=== PATIENT | female | born 1940 | race Caucasian/White ===

== ENCOUNTER 2018-01-02 09:15 | Emergency (ER) | payer MEDICARE, SELFPAY ==
[2018-01-02 09:26] VITALS: BP 150/96; PULSE 60; RESP 20; TEMP 36.2; O2SAT 95; BMI 38.1
--- NOTE | 2018-01-02 09:45 | HMH.EDBACK ---
ED Disposition Clinical Impression: Strain of lumbar region Qualifiers: Encounter type: initial encounter Qualified Code(s): S39.012A - Strain of muscle, fascia and tendon of lower back, initial encounter Disposition: Home, Self-Care Condition on Discharge: Good Instructions: DI for Low Back Pain Additional Instructions: See Nehal for follow up next week; she may wish to do an MRI. Continue Ultram and get refills from Nehal early next week; Rx Medrol dosepak; your blood pressure is low today after taking your morning medications; do not take your morning blood pressure medications tomorrow if your blood pressure top number is 100 or lower, but definitely talk to Nehal about adjusting your medications if you see consistent low blood pressures at home. Keep a log of your blood pressures to bring in to her to review and make adjustments as she sees fit. Prescriptions: methylPREDNISolone [Medrol] 4 mg PO DAILY #1 tab.ds.pk Referrals: Nehal Calixto APRN [Primary Care Provider] - - Critical Care Critical Care Time: No Attestation: On 01/02/18, the high probability of a clinically significant, sudden or life threatening deterioration of the following system(s) required my full and direct attention, intervention and personal management. The time I documented below is in addition to time spent performing reported procedures but includes the following listed in this critical care notation. Medical Decision Making Vital Signs: 01/02/18 09:26 Temperature 97.2 F L Temperature Source Tympanic Pulse Rate [Left Radial] 60 Respiratory Rate 20 Blood Pressure [Right Arm] 150/96 Blood Pressure Mean [Right Arm] 114 Blood Pressure Source [Right Arm] Automatic Cuff Blood Pressure Position [Right Arm] Sitting 02 Sat by Pulse Oximetry 95 Oxygen Delivery Method Room Air Orders (Tests/Meds): ED MEDICATIONS Discontinued Medications Generic Name Dose Route Start Last Admin Trade Name Freq PRN Reason Stop Dose Admin Prednisone 80 mg 01/02/18 09:55 01/02/18 10:17 Deltasone 20mg Tablet PO 01/02/18 09:56 80 mg ONCE ONE Administration Tramadol HCl 50 mg 01/02/18 09:55 01/02/18 10:17 Ultram 50mg Tablet PO 01/02/18 09:56 50 mg ONCE ONE Administration ORDERS Category Date Time Status Lumbar spine minimum 4 views [XR lumbar spine min 4V] Exams 01/02/18 09:46 Taken Stat - Radiology Data #1 Image(s): L-Spine Image Reviewed: Yes I reviewed the patient's radiology image Preliminary Findings: Abnormal, No Fracture Seen Retrolisthesis of L3 on L4 already seen on prior MRI; DJD; some what diminished height of L1 - Leo Inquiry Pt receiving controlled substance: No Back Pain HPI - General Chief Complaint: Back Pain/Injury Stated Complaint: ao [id number] Mode of Arrival: Ambulatory Limitations: No Limitations Description of Symptoms (Recalled from ER Triage Doc. by RN): Back pain - History of Present Illness HPI Narrative: Patient states that she fell while going to the room in the middle of the night approximately 1 week ago. She did speak with her nurse practitioner, who recommended that she double up on her Ultram. We took 1 dose of Ultram this morning. She has persistent back spasm in the right lumbar area. She denies any loss of bowel or bladder function. She has chronic lymphedema and chronic leg pain. She usually ambulates with a cane when she is outside of the house, but has been using the cane while inside the house. She does not have a walker but does not state that she needs a walker today. No acute numbness or weakness reported. No hematuria. No rib pain. Pain is worse with motion. Complaint: back injury, fall Duration: constant Similar Symptoms Previously: No Location: lumbar spine Severity: moderate Quality: aching Radiation: none Relieving factors: medication Exacerbating factors: movement Context: fall Associated symptoms: denies other symptoms - Relate
--- NOTE | 2018-01-02 09:46 | XR_ITS ---
XR lumbar spine min 4V COMPARISON: MRI scan lumbar spine 01/24/2014 HISTORY: Low back pain after a fall TECHNIQUE: AP lateral and oblique views and spot view lumbosacral junction FINDINGS: There is normal curvature and alignment. There is prominent degenerative change at the L3-4 level with anterior and posterior osteophytic spurring. There is a mild compression fracture of L1 which was not seen on the previous MRI study and this could be an acute compression fracture. There is no more than 10-15% loss of height. There is no significant retropulsion. There is no pars defect. There is mild arthritic change of the right SI joint. IMPRESSION: Mild compression fracture of L1 likely acute or semiacute along with prominent degenerative disc disease L3-4
--- NOTE | 2018-01-02 09:57 | ED_ITS ---
ED Disposition Clinical Impression: Strain of lumbar region Qualifiers: Encounter type: initial encounter Qualified Code(s): S39.012A - Strain of muscle, fascia and tendon of lower back, initial encounter Disposition: Home, Self-Care Condition on Discharge: Good Instructions: DI for Low Back Pain Additional Instructions: See Nehal for follow up next week; she may wish to do an MRI. Continue Ultram and get refills from Nehal early next week; Rx Medrol dosepak; your blood pressure is low today after taking your morning medications; do not take your morning blood pressure medications tomorrow if your blood pressure top number is 100 or lower, but definitely talk to Nehal about adjusting your medications if you see consistent low blood pressures at home. Keep a log of your blood pressures to bring in to her to review and make adjustments as she sees fit. Prescriptions: methylPREDNISolone [Medrol] 4 mg PO DAILY #1 tab.ds.pk Referrals: Nehal Calixto APRN [Primary Care Provider] - - Critical Care Critical Care Time: No Attestation: On 01/02/18, the high probability of a clinically significant, sudden or life threatening deterioration of the following system(s) required my full and direct attention, intervention and personal management. The time I documented below is in addition to time spent performing reported procedures but includes the following listed in this critical care notation. Medical Decision Making Vital Signs: 01/02/18 09:26 Temperature 97.2 F L Temperature Source Tympanic Pulse Rate [Left Radial] 60 Respiratory Rate 20 Blood Pressure [Right Arm] 150/96 Blood Pressure Mean [Right Arm] 114 Blood Pressure Source [Right Arm] Automatic Cuff Blood Pressure Position [Right Arm] Sitting 02 Sat by Pulse Oximetry 95 Oxygen Delivery Method Room Air Orders (Tests/Meds): ED MEDICATIONS Discontinued Medications Generic Name Dose Route Start Last Admin Trade Name Freq PRN Reason Stop Dose Admin Prednisone 80 mg 01/02/18 09:55 01/02/18 10:17 Deltasone 20mg Tablet PO 01/02/18 09:56 80 mg ONCE ONE Administration Tramadol HCl 50 mg 01/02/18 09:55 01/02/18 10:17 Ultram 50mg Tablet PO 01/02/18 09:56 50 mg ONCE ONE Administration ORDERS Category Date Time Status Lumbar spine minimum 4 views [XR lumbar spine min 4V] Exams 01/02/18 09:46 Taken Stat - Radiology Data #1 Image(s): L-Spine Image Reviewed: Yes I reviewed the patient's radiology image Preliminary Findings: Abnormal, No Fracture Seen Retrolisthesis of L3 on L4 already seen on prior MRI; DJD; some what diminished height of L1 - Leo Inquiry Pt receiving controlled substance: No Back Pain HPI - General Chief Complaint: Back Pain/Injury Stated Complaint: ao [id number] Mode of Arrival: Ambulatory Limitations: No Limitations Description of Symptoms (Recalled from ER Triage Doc. by RN): Back pain - History of Present Illness HPI Narrative: Patient states that she fell while going to the room in the middle of the night approximately 1 week ago. She did speak with her nurse practitioner, who recommended that she double up on her Ultram. We took 1 dose of Ultram this morning. She has persistent back spasm in the right lumbar area. She denies any loss of bowel or bladder function. She has chronic lymphedema
[2018-01-02 10:52] VITALS: BP 138/62; PULSE 56; RESP 20; TEMP 36.3; O2SAT 96
== END 2018-01-02 11:03 | disposition home or self-care (01) ==
PROVIDERS: Emergency Provider Emergency Medicine; Family Provider Nurse Practitioner Family; PCP Nurse Practitioner Family
DX: S39.012A Strain of muscle, fascia and tendon of lower back, initial encounter (principal); W01.0XXA Fall on same level from slipping, tripping and stumbling without subsequent striking against object, initial encounter; Y92.019 Unspecified place in single-family (private) house as the place of occurrence of the external cause; I10 Essential (primary) hypertension; Z88.6 Allergy status to analgesic agent; M62.830 Muscle spasm of back
CPT/HCPCS: 72110; 99282

== ENCOUNTER → 2018-03-29 08:33 | Outpatient (CLI) | payer MEDICARE, SELFPAY ==
--- NOTE | 2018-03-29 08:42 | XR_ITS ---
XR hand RT min 3V HISTORY: Pain, swelling, and bruising ITS.REASON: RT HAND PAIN ORDERING PHYSICIAN: Nehal Calixto PATIENT AGE: 77 years COMPARISON: None FINDINGS: No fracture or dislocation. No lytic or blastic change. There is normal mineralization.. The joint spaces are well-preserved. No significant degenerative/arthritic changes. No erosive changes evident.. IMPRESSION: Negative, no acute finding
== END ==
PROVIDERS: PCP Nurse Practitioner Family; Visit Provider Nurse Practitioner Family
DX: M79.641 Pain in right hand (principal)
CPT/HCPCS: 73130

== ENCOUNTER 2018-06-08 09:00 | Outpatient (RCR) | payer MEDICARE, SELFPAY | END 2018-06-08 09:01 | disposition home or self-care (01) | LOC: PT 09:00 | PROVIDERS: Family Provider Nurse Practitioner Family; PCP Nurse Practitioner Family; Visit Provider Nurse Practitioner Family | DX: R29.898 Other symptoms and signs involving the musculoskeletal system; S32.010A Wedge compression fracture of first lumbar vertebra, initial encounter for closed fracture; S60.219A Contusion of unspecified wrist, initial encounter | CPT/HCPCS: 97010; 97014; 97110; 97140; 97163; G0283 ==

== ENCOUNTER → 2018-08-06 13:25 | Outpatient (CLI) | payer MEDICARE, SELFPAY ==
--- NOTE | 2018-08-06 13:28 | MR_ITS ---
MR lumbar spine wo con, MR 3-d myelogram/MRCP HISTORY: Low back pain, recent falls with fracture, acute or subacute L1 fracture, degenerative disc disease ITS.REASON: DEGENERATION OF LUMBAR DISC ORDERING PHYSICIAN: Nehal Calixto PATIENT AGE: 77 years Comparison: 01/02/2018, 01/24/2014) TECHNIQUE: Standard multiplanar multiecho sequences are performed without contrast. 3-D MIP and myelographic images are also rendered and reviewed FINDINGS: There is normal alignment. The spinal cord ends at the L2 level. L1-L2: There are wedge compression changes involving the L1 vertebral body centrally and anteriorly. Bone marrow edema is present involving the superior aspect of L2 but not the inferior aspect at the region of the compression change. The compression changes are greater along the left aspect of the vertebral body. This has more of a chronic appearance. There is mild retropulsion of the posterior-inferior aspect of L1 by approximately 4 mm. There is facet and ligamentum flavum hypertrophy with associated bulging disc. There is moderate to severe left foraminal narrowing. And moderate left lateral recess narrowing. L2-L3: Mild concentric bulging disc along with facet and ligamentum hypertrophy with moderate bilateral lateral recess and foraminal narrowing. L3-L4: Degenerative disc disease with type II endplate changes. There is concentric bulging disc along with facet and ligamentum flavum hypertrophy which is greater on the right causing moderate to severe right foraminal narrowing and moderate right lateral recess narrowing. There is some mild impingement upon exiting right L3 nerve root and the right L4 nerve root. There is narrowing the canal the transverse dimension and 10 mm L4-L5: Mild concentric bulging disc which is slightly eccentric toward the left foraminal and lateral region with mild facet and ligamentum flavum hypertrophy. L5-S1: Minimal bulging disc versus slightly eccentric toward the left with mild facet and ligamentum hypertrophy. IMPRESSION: 1. Abnormal MRI of the lumbar spine with abnormalities at multiple levels. Please see above for detailed description at each level. 2. Chronic compression changes with mild retropulsion of L1 and moderate to severe left-sided foraminal narrowing and left lateral recess narrowing at L1-L2. See above for detailed description 3. Bulging disc at L3-L4 with moderate to severe right-sided foraminal and lateral recess narrowing. See above for detailed description 4. No disc herniation or spinal stenosis. Other numerous abnormalities as described above
== END ==
PROVIDERS: PCP Nurse Practitioner Family; Visit Provider Nurse Practitioner Family
DX: M51.36 Other intervertebral disc degeneration, lumbar region (principal)
CPT/HCPCS: 72148; 76376

== ENCOUNTER → 2018-09-06 08:48 | Outpatient (POV) | payer MEDICARE, SELFPAY ==
[2018-09-06 08:53] VITALS: BP 138/65; PULSE 63; RESP 18; O2SAT 98
--- NOTE | 2018-09-06 12:49 | HMH.PMCON ---
Assessment and Plan (1) Degenerative disc disease Current visit: Yes Status: Chronic Qualifiers: Spinal region: lumbar Qualified Code(s): M51.36 - Other intervertebral disc degeneration, lumbar region Category: Medical (2) Lumbar radiculopathy Current visit: Yes Status: Chronic Category: Medical Code(s): M54.16 - Radiculopathy, lumbar region - Assessment and plan all Dx Assessment and Plan for all problems:: We will schedule the patient for an L4-L5 lumbar epidural steroid injection. Patient is on Xarelto from Dr. Marques. We will get permission for her to come off of this prior to her injection. Patient may be a mild candidate in the future. I do believe starting with a lumbar epidural steroid injection will help us determine this. I will follow-up with the patient after her injection. This note was dictated using voice recognition software and may contain errors or omissions HPI - Data of Consult Consult date: 09/06/18 Requesting Physician: Christie Ruiz APRN Primary Care Provider: Nehal Calixto APRN - Consult Narrative Reason for consult: Back pain History of present illness: Ms. Laird is a 77 year old female who presents today for consultation in regards to her low back pains. She rates her pain a 6 out of 10 today. Patient states that it began several years ago after she was mary and bent over. She has had 2 recent falls. One resulted in compression fracture. Patient states that walking, standing to cook increases pain while resting and laying down decreases pain. Patient has tried gabapentin and tramadol. Patient has had minimal relief with chiropractic therapy along with physical therapy. Patient does have an recent MRI. CC: Christie Ruiz APRN [facility] History I have reviewed the patient's past medical history: Yes Medical History: Reports:: Atrial Fibrillation, Cancer (1993 uterine cancer), Hyperlipidemia, Hypertension Denies:: Diabetes Mellitus Type 1, Diabetes Mellitus Type 2 Other Surgeries: Yes: Hysterectomy-Total - *Social History Smoking Status: Never smoker Alcohol Intake: never Occupational Status: other Housing: apartment - Psychiatric History Expresses thoughts of harming self/others: None Suicide Plan Description: No Plan *Family Hx:: Unable to obtain Review of Systems - Review of Systems ROS General: no recent weight change, no fever, no sleep disturbances Respiratory: no cough, no shortness of air, no recurring pulmonary infections Cardiovascular/Peripheral Vascular: No chest pain, No palpitations, no edema, no shortness of breath. Gastrointestinal: no incontinence, normal bowel movements reported Genitourinary: no incontinence Musculoskeletal: Back pain Psychiatric: normal mood/ affect Neurological: [denies weakness in extremities], [denies balance issues] Meds Home Medications Medication Instructions Recorded Confirmed Type Gabapentin [Gabapentin 400mg Cap] 400 mg PO QID 01/02/18 01/02/18 History Rivaroxaban [Xarelto] 20 mg PO DAILY 01/02/18 01/02/18 History Tramadol HCl [Ultram Take Home 50 mg PO Q6 PRN 01/02/18 01/02/18 History Pack 50mg (10)] Triamterene/Hydrochlorothiazid 1 cap PO DAILY 01/02/18 01/02/18 History [Dyazide 37.5/25mg capsule] Zolpidem Tartrate [Ambien 10mg 10 mg PO DAILY 01/02/18 01/02/18 History tablet] Allergies Allergy/AdvReac Type Severity Reaction Status Date / Time acetaminophen [From Vicodin] Allergy Unknown Verified 01/02/18 09:50 hydrocodone [From Vicodin] Allergy Unknown Verified 01/02/18 09:50 Objective Vital signs: Pulse Resp BP Pulse Ox 63 18 138/65 98 09/06/18 08:53 09/06/18 08:53 09/06/18 08:53 09/06/18 08:53 Narrative: Physical Exam General: Alert and oriented x3, no acute distress, pleasant and cooperative, [on room air] Lungs: Resps E/U, Symmetrical chest expansion, Eyes: PERRL Musculoskeletal: Flexion and extension of
--- NOTE | 2018-09-06 12:52 | P.CONS_ITS ---
Assessment and Plan (1) Degenerative disc disease Current visit: Yes Status: Chronic Qualifiers: Spinal region: lumbar Qualified Code(s): M51.36 - Other intervertebral disc degeneration, lumbar region Category: Medical (2) Lumbar radiculopathy Current visit: Yes Status: Chronic Category: Medical Code(s): M54.16 - Radiculopathy, lumbar region - Assessment and plan all Dx Assessment and Plan for all problems:: We will schedule the patient for an L4-L5 lumbar epidural steroid injection. Patient is on Xarelto from Dr. Marques. We will get permission for her to come off of this prior to her injection. Patient may be a mild candidate in the future. I do believe starting with a lumbar epidural steroid injection will help us determine this. I will follow-up with the patient after her injection. This note was dictated using voice recognition software and may contain errors or omissions HPI - Data of Consult Consult date: 09/06/18 Requesting Physician: Christie Ruiz APRN Primary Care Provider: Nehal Calixto APRN - Consult Narrative Reason for consult: Back pain History of present illness: Ms. Laird is a 77 year old female who presents today for consultation in regards to her low back pains. She rates her pain a 6 out of 10 today. Patient states that it began several years ago after she was mary and bent over. She has had 2 recent falls. One resulted in compression fracture. Patient states that walking, standing to cook increases pain while resting and laying down decreases pain. Patient has tried gabapentin and tramadol. Patient has had minimal relief with chiropractic therapy along with physical therapy. Patient does have an recent MRI. CC: Christie Ruiz APRN [facility] History I have reviewed the patient's past medical history: Yes Medical History: Reports:: Atrial Fibrillation, Cancer (1993 uterine cancer), Hyperlipidemia, Hypertension Denies:: Diabetes Mellitus Type 1, Diabetes Mellitus Type 2 Other Surgeries: Yes: Hysterectomy-Total - *Social History Smoking Status: Never smoker Alcohol Intake: never Occupational Status: other Housing: apartment - Psychiatric History Expresses thoughts of harming self/others: None Suicide Plan Description: No Plan *Family Hx:: Unable to obtain Review of Systems - Review of Systems ROS General: no recent weight change, no fever, no sleep disturbances Respiratory: no cough, no shortness of air, no recurring pulmonary infections Cardiovascular/Peripheral Vascular: No chest pain, No palpitations, no edema, no shortness of breath. Gastrointestinal: no incontinence, normal bowel movements reported Genitourinary: no incontinence Musculoskeletal: Back pain Psychiatric: normal mood/ affect Neurological: [denies weakness in extremities], [denies balance issues] Meds Home Medications Medication Instructions Recorded Confirmed Type Gabapentin [Gabapentin 400mg Cap] 400 mg PO QID 01/02/18 01/02/18 History Rivaroxaban [Xarelto] 20 mg PO DAILY 01/02/18 01/02/18 History Tramadol HCl [Ultram Take Home 50 mg PO Q6 PRN 01/02/18 01/02/18 History Pack 50mg (10)] Triamterene/Hydrochlorothiazid 1 cap PO DAILY 01/02/18 01/02/18 History [Dyazide 37.5/25mg capsule] Zolpidem Tartrate [Ambien 10mg 10 mg PO DAILY 01/02/18 01/02/18 History tablet] Allergies Aller
== END ==
PROVIDERS: PCP Nurse Practitioner Family; Visit Provider Clinical Nurse Specialist Family Health
DX: M51.16 Intervertebral disc disorders with radiculopathy, lumbar region (principal)
CPT/HCPCS: 99202

== ENCOUNTER → 2018-10-18 13:35 | Outpatient (POV) | payer MEDICARE, SELFPAY ==
[2018-10-18 14:15] VITALS: BP 144/57; PULSE 62; RESP 18; O2SAT 98; BMI 36.0
--- NOTE | 2018-10-18 14:42 | HMH.PAINSOAP ---
[facility] Pain Management SOAP Note Subjective:: Is a pleasant 77-year-old white female who presents today for follow-up after lumbar epidural steroid injection. Patient did not have much relief with this. She rates her pain today a 10 out of 10. Mostly in her low back. She states is worse when she is walking. She has to lean forward for relief. Patient does have an MRI showing both a compression fracture and spinal stenosis. Patient and I have spoke about a mild procedure. She is interested in pursuing this. Patient does have permission to come off her anticoagulation therapy for these in injections and seizures. ROS General: no recent weight change, no fever, no sleep disturbances Respiratory: no cough, no shortness of air, no recurring pulmonary infections Cardiovascular/Peripheral Vascular: No chest pain, No palpitations, no edema, no shortness of breath. Gastrointestinal: no incontinence, normal bowel movements reported Genitourinary: no incontinence Musculoskeletal: Back pain and leg weakness when walking Psychiatric: normal mood/ affect Neurological: [denies weakness in extremities], [denies balance issues] Objective:: Physical Exam General: Alert and oriented x3, no acute distress, pleasant and cooperative, [on room air] Lungs: Resps E/U, Symmetrical chest expansion, Eyes: PERRL Musculoskeletal: Flexion and extension of lumbar spine somewhat guarded secondary to pain, deep tendon reflexes normal, strength in upper and lower extremities [5/5], [abnormal gait noted] Neurological: speech clear, lift manager equal, no gross sensory deficits Assessment:: Degenerative disc disease lumbar spine with radiculopathy, spinal stenosis with neurogenic claudication Plan:: We will schedule her for a mild procedure at the L3-L4 level. I do believe it would be beneficial given her symptomology and age. This note was dictated using voice recognition software and may contain errors or omissions
== END ==
PROVIDERS: PCP Nurse Practitioner Family; Visit Provider Clinical Nurse Specialist Family Health
DX: M54.16 Radiculopathy, lumbar region; M48.062 Spinal stenosis, lumbar region with neurogenic claudication
CPT/HCPCS: 99213

== ENCOUNTER → 2018-11-22 12:50 | Outpatient (POV) | payer MEDICARE, SELFPAY ==
[2018-11-22 13:05] VITALS: BP 131/88; PULSE 50; RESP 18; O2SAT 98; BMI 36.0
--- NOTE | 2018-11-22 13:10 | HMH.PAINSOAP ---
[facility] Pain Management SOAP Note Subjective:: Patient is a pleasant 77-year-old white female who presents today for follow-up after her M ILD procedure. She is doing well rating her pain a 3 out of 10. She states she is much more functional. She states that she can now cook and shower with less help. She states before she could not stand however now she can stand for several minutes at a time and can walk up to 15 minutes. Patient is planning a trip to [place] and is excited about it. ROS General: no recent weight change, no fever, no sleep disturbances Respiratory: no cough, no shortness of air, no recurring pulmonary infections Cardiovascular/Peripheral Vascular: No chest pain, No palpitations, no edema, no shortness of breath. Gastrointestinal: no incontinence, normal bowel movements reported Genitourinary: no incontinence Musculoskeletal: Back pain, leg weakness when walking Psychiatric: normal mood/ affect Neurological: [denies weakness in extremities], [denies balance issues] Objective:: Physical Exam General: Alert and oriented x3, no acute distress, pleasant and cooperative, [on room air] Lungs: Resps E/U, Symmetrical chest expansion Eyes: PERRL Musculoskeletal: Flexion and extension of lumbar spine somewhat guarded secondary to pain, deep tendon reflexes normal, strength in upper and lower extremities [5/5], [abnormal gait noted] Neurological: speech clear, kiln remover equal, no gross sensory deficits Assessment:: Spinal stenosis with neurogenic claudication, degenerative disc disease lumbar spine with lumbar radiculopathy Plan:: We will follow-up with the patient in 6 weeks and reassess her symptoms at that time. This note was dictated using voice recognition software and may contain errors or omissions
--- NOTE | 2018-11-22 13:14 | P.CONS_ITS ---
[facility] Pain Management SOAP Note Subjective:: Patient is a pleasant 77-year-old white female who presents today for follow-up after her M ILD procedure. She is doing well rating her pain a 3 out of 10. She states she is much more functional. She states that she can now cook and shower with less help. She states before she could not stand however now she can stand for several minutes at a time and can walk up to 15 minutes. Patient is planning a trip to [place] and is excited about it. ROS General: no recent weight change, no fever, no sleep disturbances Respiratory: no cough, no shortness of air, no recurring pulmonary infections Cardiovascular/Peripheral Vascular: No chest pain, No palpitations, no edema, no shortness of breath. Gastrointestinal: no incontinence, normal bowel movements reported Genitourinary: no incontinence Musculoskeletal: Back pain, leg weakness when walking Psychiatric: normal mood/ affect Neurological: [denies weakness in extremities], [denies balance issues] Objective:: Physical Exam General: Alert and oriented x3, no acute distress, pleasant and cooperative, [on room air] Lungs: Resps E/U, Symmetrical chest expansion Eyes: PERRL Musculoskeletal: Flexion and extension of lumbar spine somewhat guarded secondary to pain, deep tendon reflexes normal, strength in upper and lower extremities [5/5], [abnormal gait noted] Neurological: speech clear, landfill attendant equal, no gross sensory deficits Assessment:: Spinal stenosis with neurogenic claudication, degenerative disc disease lumbar spine with lumbar radiculopathy Plan:: We will follow-up with the patient in 6 weeks and reassess her symptoms at that time. This note was dictated using voice recognition software and may contain errors or omissions
== END ==
PROVIDERS: PCP Nurse Practitioner Family; Visit Provider Clinical Nurse Specialist Family Health
DX: M48.062 Spinal stenosis, lumbar region with neurogenic claudication (principal)
CPT/HCPCS: 99213

== ENCOUNTER → 2019-01-04 11:33 | Outpatient (POV) | payer MEDICARE, SELFPAY ==
[2019-01-04 11:35] VITALS: BP 147/83; PULSE 40; RESP 18; O2SAT 97; BMI 36.0
--- NOTE | 2019-01-04 12:18 | HMH.PAINSOAP ---
[facility] Pain Management SOAP Note Subjective:: Patient is a pleasant 78-year-old white female who presents today for follow-up. Patient was doing well after her M ILD procedure. She stated at her last visit she was able to stand longer. Patient states now that she can stand however she is having some additional pain. Patient is returning from a trip to [employer]. Patient and I discussed options in regards to her current pain. She rates her pain a 5 out of 10 today. ROS General: no recent weight change, no fever, no sleep disturbances Respiratory: no cough, no shortness of air, no recurring pulmonary infections Cardiovascular/Peripheral Vascular: No chest pain, No palpitations, no edema, no shortness of breath. Gastrointestinal: no incontinence, normal bowel movements reported Genitourinary: no incontinence Musculoskeletal: Back pain, leg pain Psychiatric: normal mood/ affect, Neurological: [denies weakness in extremities], [denies balance issues] Objective:: Physical Exam General: Alert and oriented x3, no acute distress, pleasant and cooperative, [on room air] Lungs: Resps E/U, Symmetrical chest expansion, Eyes: PERRL Musculoskeletal: Flexion and extension of lumbar spine somewhat guarded secondary to pain, deep tendon reflexes normal, strength in upper and lower extremities [5/5], [abnormal gait noted] Neurological: speech clear, regulatory affairs consultant equal, no gross sensory deficits Assessment:: 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 Also lumbar radiculopathy Plan:: We will schedule an L4-L5 lumbar epidural steroid injection for the patient I do believe it would be beneficial. Patient may be a candidate for future procedures however I feel like a epidural will help us determine the necessity of this. She is not on anticoagulation therapy however she has permission to come off her procedures. Dr. Cherry has reviewed this note and agrees with this plan of care. This note was dictated using voice recognition software and may contain errors or omissions
--- NOTE | 2019-01-04 12:22 | P.CONS_ITS ---
[facility] Pain Management SOAP Note Subjective:: Patient is a pleasant 78-year-old white female who presents today for follow-up. Patient was doing well after her M ILD procedure. She stated at her last visit she was able to stand longer. Patient states now that she can stand however she is having some additional pain. Patient is returning from a trip to [place]. Patient and I discussed options in regards to her current pain. She rates her pain a 5 out of 10 today. ROS General: no recent weight change, no fever, no sleep disturbances Respiratory: no cough, no shortness of air, no recurring pulmonary infections Cardiovascular/Peripheral Vascular: No chest pain, No palpitations, no edema, no shortness of breath. Gastrointestinal: no incontinence, normal bowel movements reported Genitourinary: no incontinence Musculoskeletal: Back pain, leg pain Psychiatric: normal mood/ affect, Neurological: [denies weakness in extremities], [denies balance issues] Objective:: Physical Exam General: Alert and oriented x3, no acute distress, pleasant and cooperative, [on room air] Lungs: Resps E/U, Symmetrical chest expansion, Eyes: PERRL Musculoskeletal: Flexion and extension of lumbar spine somewhat guarded secondary to pain, deep tendon reflexes normal, strength in upper and lower extremities [5/5], [abnormal gait noted] Neurological: speech clear, bmet equal, no gross sensory deficits Assessment:: 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 Also lumbar radiculopathy Plan:: We will schedule an L4-L5 lumbar epidural steroid injection for the patient I do believe it would be beneficial. Patient may be a candidate for future procedures however I feel like a epidural will help us determine the necessity of this. She is not on anticoagulation therapy however she has permission to come off her procedures. Dr. Cherry has reviewed this note and agrees with this plan of care. This note was dictated using voice recognition software and may contain errors or omissions
== END ==
PROVIDERS: PCP Nurse Practitioner Family; Visit Provider Clinical Nurse Specialist Family Health
DX: M48.062 Spinal stenosis, lumbar region with neurogenic claudication (principal); M54.16 Radiculopathy, lumbar region
CPT/HCPCS: 99213

== ENCOUNTER → 2019-01-31 14:17 | Outpatient (POV) | payer MEDICARE, SELFPAY ==
[2019-01-31 14:49] VITALS: BP 148/77; PULSE 52; RESP 18; O2SAT 98; BMI 36.0
--- NOTE | 2019-02-01 08:21 | HMH.PAINSOAP ---
[facility] Pain Management SOAP Note Subjective:: Patient is a pleasant 78-year-old white female who presents today for follow-up after lumbar epidural injection. Patient had a mild procedure. After this she was still having some residual pain so she had an epidural injection she rates her pain today a 2 out of 10 she states she is doing much better. Patient recently fell which did increase her pain. ROS General: no recent weight change, no fever, no sleep disturbances Respiratory: no cough, no shortness of air, no recurring pulmonary infections Cardiovascular/Peripheral Vascular: No chest pain, No palpitations, no edema, no shortness of breath. Gastrointestinal: no incontinence, normal bowel movements reported Genitourinary: no incontinence Musculoskeletal: [Back pain, leg pain Psychiatric: normal mood/ affect, Neurological: [denies weakness in extremities], [denies balance issues] Objective:: Physical Exam General: Alert and oriented x3, no acute distress, pleasant and cooperative, [on room air] Lungs: Resps E/U, Symmetrical chest expansion, Eyes: PERRL Musculoskeletal: Flexion and extension of lumbar spine somewhat guarded secondary to pain, deep tendon reflexes normal, strength in upper and lower extremities [5/5], [abnormal gait noted] Neurological: speech clear, corn lab technician equal, no gross sensory deficits Assessment:: Degenerative disc disease lumbar spine with spinal stenosis and lumbar radiculopathy symptoms Plan:: After discussion with the patient will see this patient back on an as-needed basis. Patient is good to call us if her pain returns or worsens. Dr. Cherry has reviewed this note and agrees with this plan of care. This note was dictated using voice recognition software and may contain errors or omissions
== END ==
PROVIDERS: PCP Nurse Practitioner Family; Visit Provider Clinical Nurse Specialist Family Health
DX: M48.061 Spinal stenosis, lumbar region without neurogenic claudication (principal); M51.16 Intervertebral disc disorders with radiculopathy, lumbar region
CPT/HCPCS: 99213

== ENCOUNTER → 2019-05-31 15:52 | Outpatient (CLI) | payer MEDICARE, SELFPAY ==
--- NOTE | 2019-05-31 15:56 | MR_ITS ---
MR head/brain wo con HISTORY: ITS.REASON: UNSPECIFIED DISORDER OF TYMPANIC MEMBRANE, LEFT EAR ORDERING PHYSICIAN: Nehal Calixto APRN PATIENT AGE: 78 years Comparison: None TECHNIQUE: Standard multiplanar multiecho sequences are performed without contrast. FINDINGS: There are no areas of restricted diffusion. There is no mass, acute hemorrhage or extra-axial fluid collection. Ventricles, sulci, cortical areas and brainstem structures are normal. There is empty sella turcica which is a nonspecific finding. Visualized vessels are patent and area of the foramen magnum is normal. Few scattered small punctate foci of increased T2 signal within the frontal and parietal centrum semiovale deep white matter areas. There is some mixed intermediate and increased T2 signal in several mastoid air cells on the left side with some intermediate signal likely in the left middle ear cavity. Visualized portions of the optic pathway structures appear normal. IMPRESSION: White matter findings are very nonspecific and likely from mild chronic microvascular ischemic change. Left mastoid air cell mucosal thickening or effusion with perhaps a small amount in the left middle air cavity. It should be noted MRI is not very diagnostic to evaluate the tympanic membrane which is better evaluated with clinical exam and if necessary high-resolution CT temporal bone images. Empty sella turcica nonspecific and can occur in 50% normal population although there can BE association with hypertension.
== END ==
PROVIDERS: PCP Nurse Practitioner Family; Visit Provider Nurse Practitioner Family
DX: H73.92 Unspecified disorder of tympanic membrane, left ear (principal)
CPT/HCPCS: 70551

== ENCOUNTER → 2019-06-02 13:18 | Outpatient (CLI) | payer MEDICARE, SELFPAY ==
[2019-06-02 14:34] LABS: Basophils % 0.4 % (0.1-2.0); Eosinophils # 0.1 K/mm3 (0.0-0.4); Hematocrit 47.1 % (37.0-47.0); Hemoglobin 15.1 g/dL (12.2-16.2); Lymphocytes # 1.4 K/mm3 (0.7-4.5); Lymphocytes % 20.4 % (10-50); Mean Corpuscular HGB Conc 32.1 g/dL (31.8-35.4); Mean Corpuscular Hemoglobin 31.6 pg (27.0-31.2); Mean Corpuscular Volume 98.3 fl (81-99); Mean Platelet Volume 8.1 fl (7.4-10.4); Monocytes # 0.4 K/mm3 (0.1-1.0); Monocytes % 6.5 % (1.7-9.3); Neutrophils # 4.9 K/mm3 (1.8-7.8); Neutrophils % 71.6 % (37.0-80.0); Platelet Count 260 K/mm3 (142-424); Red Blood Count 4.79 M/mm3 (4.20-5.40); Red Cell Distribution Width 13.4 % (11.5-17.5); White Blood Count 6.8 K/mm3 (4.8-10.8)
[2019-06-02 14:50] LABS: Blood Urea Nitrogen 20 mg/dL (7-18); Calcium 9.1 mg/dL (8.5-10.1); Carbon Dioxide 30 mmol/L (21.0-32.0); Chloride 101 mmol/L (98-107); Creatinine,Serum 1.37 mg/dL (0.55-1.02); Estimated Glomerular Filt Rate 37 ml/min (>60); GFR (African American) 45 ML/MIN (>60); Glucose 117 mg/dL (74-106); Sodium 139 mmol/L (136-145)
== END ==
PROVIDERS: Visit Provider Otolaryngology
DX: Z01.818 Encounter for other preprocedural examination (principal); H92.02 Otalgia, left ear; T16.2XXD Foreign body in left ear, subsequent encounter
CPT/HCPCS: 36415; 80048; 85025; 86618; 93005

== ENCOUNTER → 2019-08-11 13:59 | Outpatient (CLI) | payer MEDICARE, SELFPAY ==
--- NOTE | 2019-08-11 14:20 | ECG_ITS ---
APPROVED REPORT Exam: Resting ECG HR:63 bpm ECG Measurements Heart Rate 63 AXES OH 222 P 113 QRSd 128 QRS -47 QT 446 T 105 QTc 456 <Conclusion> Sinus rhythm with marked sinus arrhythmia with 1st degree AV block Right bundle branch block Left anterior fascicular block Bifascicular block Abnormal ECG Electronically signed by : Sadi Garcia, 08/13/2019 19:16:16
[2019-08-11 15:38] LABS: Alanine Aminotransferase 16 U/L (12-78); Albumin Level 3.2 gm/dL (3.4-5.0); Albumin/Globulin Ratio 0.9 (1.1-1.8); Alkaline Phosphatase 51 U/L (46-116); Anion Gap 12.7 mEq/L (5-15); Bilirubin,Total 0.7 mg/dL (0.2-1.0); Blood Urea Nitrogen 21 mg/dL (7-18); Calcium 8.8 mg/dL (8.5-10.1); Carbon Dioxide 30 mmol/L (21.0-32.0); Chloride 104 mmol/L (98-107); Creatinine,Serum 1.21 mg/dL (0.55-1.02); Estimated Glomerular Filt Rate 43 ml/min (>60); GFR (African American) 52 ML/MIN (>60); Globulin 3.7 gm/dl (1.3-3.2); Glucose 137 mg/dL (74-106); Sodium 142 mmol/L (136-145); Total Protein,Serum 6.9 gm/dL (6.4-8.2)
[2019-08-11 15:42] LABS: Aspartate Amino Transferase 24 U/L (15-37); Potassium 4.7 mmoL/L (3.5-5.1)
== END ==
PROVIDERS: Visit Provider Otolaryngology
DX: Z01.818 Encounter for other preprocedural examination (principal); H91.93 Unspecified hearing loss, bilateral; H65.92 Unspecified nonsuppurative otitis media, left ear
CPT/HCPCS: 36415; 80053; 93005

== ENCOUNTER 2020-01-25 09:00 | Outpatient (RCR) | payer MEDICARE, SELFPAY ==
--- NOTE | 2019-10-24 16:42 | HMH.PTOPWND ---
Rehab Outpt Wound Evaluation Rehab OP Wound Evaluation Start: 10/24/19 16:30 Freq: Status: Active Protocol: Document 10/24/19 16:30 PWDORITA (Rec: 10/24/19 16:42 [email or web address] [id number]) Electronically Signed By Eros Ramos, KARIS 10/24/19 16:30 Subjective/History History History This is the initial OPPT wound clinic evaluation for Janice Laird. Pt is a 78 y/ o female referred to wound clinic for non-healing wound/ hematoma on RLE anterior distal jara. 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 Pt reports she bumped joystick which caused her to run into corned of cost and sales record supervisor door causing wound. Pt reprots she did not think anything of it, thought it would bruise but go away. Subjective Subjective Pt reprots w/ c/o painful non- healing hematoma/wound Wound Eval Wound Right Lower Anterior Jara Wound Type hematoma Wound Length (cm) 3.5 Wound Width (cm) 5.0 Wound Depth (cm) 1.5 Wound Bed Appearance Beefy Red,Slough Percentage Granulated (%) 50 Percentage of Slough (%) 50 Wound Margins Description Roll Under Edges Undermining Position 9-12 Undermining Length (cm) 2.5 Undermining Width (cm) 3.0 Undermining Depth (cm) 2.5 Surrounding Tissue Appearance Bright Red,Edematous Edema Appearance Shiny,Tight,Red,Purple Surrounding Tissue Temperature Warm Drainage Description black,tarry,sanguinous Drainage Amount Moderate Dressing Status Soiled Wound Topical Solution/Irrigant Saline Irrigant Packing Type Gauze Pads Comment tegederm AG mesh w/ gauze Primary Dressing Absorbant Pad Comment bordered gauze Wound Secondary Dressing Type Stockinette Comment edemawear sleeve Wound Debridement Method Forceps,Gauze,Mechanical Wound Debridement Amount of Tissue Moderate Removed Wound Debridement Result Healthy Tissue Revealed, Patient Unable to Tolerate, Stopped Due to Bleeding Dressing Change Date 10/24/19 Dressing Change Patient Tolerance Tolerated Poorly Wound P
== END 2020-01-25 09:45 | disposition home or self-care (01) ==
LOC: PT 09:00
PROVIDERS: Visit Provider Orthopaedic Surgery
DX: S80.11XA Contusion of right lower leg, initial encounter (principal); I89.0 Lymphedema, not elsewhere classified
CPT/HCPCS: 97140; 97162; 97164; 97597; 97598; 97760

== ENCOUNTER → 2021-01-04 11:20 | Outpatient (CLI) | payer MEDICARE, SELFPAY ==
[2021-01-04 12:02] LABS: Basophils % 0.4 % (0.1-2.0); Eosinophils # 0.1 K/mm3 (0.0-0.4); Hematocrit 45.9 % (37.0-47.0); Hemoglobin 14.9 g/dL (12.2-16.2); Lymphocytes # 1.2 K/mm3 (0.7-4.5); Lymphocytes % 13.4 % (10-50); Mean Corpuscular HGB Conc 32.6 g/dL (31.8-35.4); Mean Corpuscular Hemoglobin 32.6 pg (27.0-31.2); Mean Corpuscular Volume 100.1 fl (81-99); Mean Platelet Volume 8.1 fl (7.4-10.4); Monocytes # 0.5 K/mm3 (0.1-1.0); Monocytes % 5.6 % (1.7-9.3); Neutrophils # 7.1 K/mm3 (1.8-7.8); Neutrophils % 79.7 % (37.0-80.0); Platelet Count 236 K/mm3 (142-424); Red Blood Count 4.58 M/mm3 (4.20-5.40); Red Cell Distribution Width 13.4 % (11.5-17.5); White Blood Count 8.9 K/mm3 (4.8-10.8)
[2021-01-04 12:36] LABS: Chloride 99 mmol/L (98-107); Potassium 4.8 mmoL/L (3.5-5.1); Sodium 140 mmol/L (136-145)
[2021-01-04 12:38] LABS: Alanine Aminotransferase 18 U/L (12-78); Aspartate Amino Transferase 33 U/L (14-36); Blood Urea Nitrogen 23 mg/dl (7-17); Estimated Glomerular Filt Rate 36 ml/min (>60); GFR (African American) 44 ML/MIN (>60)
[2021-01-04 12:39] LABS: Albumin/Globulin Ratio 1.2 (1.1-1.8); Alkaline Phosphatase 54 U/L (38-126); Anion Gap 10.8 mEq/L (5-15); Bilirubin,Total 0.9 mg/dl (0.2-1.3); Calcium 9.5 mg/dl (8.4-10.2); Carbon Dioxide 35 mmol/L (22.0-30.0); Chol/HDL Ratio 4.1 (1-3.5); Cholesterol 179 mg/dl (140-200); Globulin 3.4 g/dL (1.3-3.2); Glucose 121 mg/dl (74-100); HDL Cholesterol 44 mg/dl (40-60); Total Protein,Serum 7.4 g/dl (6.3-8.2); Triglycerides 118 mg/dl (30-150); VLDL Cholesterol 24 mg/dL (0-40)
[2021-01-04 12:50] LABS: Direct LDL Cholesterol 111.06 mg/dL (100-129)
[2021-01-07 16:38] LABS: Vitamin B12 336 pg/mL (239-931)
[2021-01-07 16:46] LABS: Folate 6.48 ng/mL
== END ==
PROVIDERS: Visit Provider Internal Medicine
DX: R73.01 Impaired fasting glucose (principal); I10 Essential (primary) hypertension; I48.91 Unspecified atrial fibrillation; R53.83 Other fatigue; Z85.42 Personal history of malignant neoplasm of other parts of uterus
CPT/HCPCS: 36415; 80053; 80061; 82607; 82746; 85025

== ENCOUNTER → 2021-01-25 15:32 | Outpatient (CLI) | payer MEDICARE, SELFPAY ==
--- NOTE | 2021-01-25 15:42 | XR_ITS ---
PROCEDURE: XR ANKLE LT MIN 3V CLINICAL INDICATION: LT ANKLE INJURY 01/18/21 COMPARISON: No exams were available for comparison FINDINGS: No fracture or dislocation. No lytic or blastic change. Minimal bony hypertrophy is present at the tip of the medial malleolus. Is mild vascular calcification. Small calcaneal spur is noted. IMPRESSION: No acute findings. Dictated by: Kwame Manzanares MD 01/25/2021 16:11 Kwame Manzanares MD in [place] 01/25/2021 16:11
== END ==
PROVIDERS: PCP Internal Medicine; Visit Provider Internal Medicine
DX: M25.572 Pain in left ankle and joints of left foot (principal); S99.912A Unspecified injury of left ankle, initial encounter
CPT/HCPCS: 73610

== ENCOUNTER → 2021-05-07 10:37 | Outpatient (CLI) | payer MEDICARE, SELFPAY ==
--- NOTE | 2021-05-07 10:42 | XR_ITS ---
PROCEDURE: XR CHEST 2V CLINICAL HISTORY: HARSH COUGH, WHEEZES COMPARISON: CR [id number] XR lumbar spine min 4V from 01/02/2018 MR SPLUMBWO MR lumbar spine wo con from 08/06/2018 FINDINGS: There are low lung volumes. There is cardiomegaly with mild pulmonary venous congestion suggesting mild CHF. There is elevated right hemidiaphragm. Increased density is present in the right perihilar region and right lower lobe suggesting underlying pneumonia. Left perihilar infiltrate also noted. No obvious effusions. Suggest following till clear Compression changes are present involving L1 with loss of height anteriorly of greater than 50 percent with kyphosis. The compression changes have increased compared to prior MRI of 08/06/2018 IMPRESSION: Mild CHF with bilateral perihilar infiltrate/pneumonia with atelectasis or infiltrate in the right lung base. Increasing wedge compression changes of L1 Dictated by: Kwame Manzanares MD 05/07/2021 11:25 Kwame Manzanares MD in [place] 05/07/2021 11:25
== END ==
PROVIDERS: PCP Internal Medicine; Visit Provider Internal Medicine
DX: R05 Cough (principal); R06.2 Wheezing
CPT/HCPCS: 71046

== ENCOUNTER 2021-11-08 10:10 | Emergency (ER) | payer MEDICARE, SELFPAY ==
[2021-11-08] VITALS (9 sets, daily range): BP systolic 131–164; BP diastolic 55–87; PULSE 58–78; RESP 15–30; TEMP 36.6–37.3; O2SAT 90–99; BMI 30.9; BMI 34.3
--- NOTE | 2021-11-08 11:12 | HMH.EDUTC ---
[facility] Disposition Clinical Impression: Vomiting and diarrhea UTI (urinary tract infection) Qualifiers: Urinary tract infection type: site unspecified Hematuria presence: with hematuria Qualified Code(s): N39.0 - Urinary tract infection, site not specified; R31.9 - Hematuria, unspecified Disposition: Still a Patient Condition on Discharge: Fair Referrals: Roderick Eddy [Primary Care Provider] - Time of Disposition: 11:45 Medical Decision Making - Medical Records Medical records reviewed: No: I reviewed the patient's medical records. - Leo Inquiry Pt receiving controlled substance: No Vital Signs: 11/08/21 11:00 Temperature 97.9 F Temperature Source Oral Pulse Rate [Right Brachial] 70 Respiratory Rate 17 Blood Pressure [Right Arm] 146/87 H Blood Pressure Mean [Right Arm] 106 Blood Pressure Source [Right Arm] Automatic Cuff Blood Pressure Position [Right Arm] Sitting 02 Sat by Pulse Oximetry 97 Oxygen Delivery Method Room Air Orders (Tests/Meds): ORDERS Category Date Time Status Urine Culture Stat Micro 11/08/21 11:01 Received Medical Decision Narrative: She was transferred to the ER due to her history of severe CAD, back pain, and possibly needing iv fluids and further workup. [facility] HPI - General Stated complaint: vomiting, diarrhea, possible uti, dehydration Time Seen by Provider: 11/08/21 11:12 - History of Present Illness Provider Complaint: She states that she has been feeling very bad for the past 4 to 5 days at least. Her symptoms began when she saw her drawing frame tender and was started on oral bactrim for a scratch on her right lower leg. The bactrim caused her to have a rash and gi upset. The bactrim was stopped and she was started on keflex 2 days ago. She states that since starting the keflex her symtoms have worsened. She is vomiting and unable to hold anything down. She is having diarrhea. She feels like she has a UTI and she is having urinary urgency and frequency. She has a significant history of severe CAD. Her EF is 30%. She states that she is getting dehydrated from the vomiting and diarrhea. - Related Data Home Medications Medication Instructions Recorded Confirmed Amiodarone HCl 200 mg PO DAILY 11/08/21 11/08/21 Apixaban [Eliquis] 5 mg PO DAILY 11/08/21 11/08/21 Gabapentin [Neurontin 600mg 600 mg PO QID 11/08/21 11/08/21 tablet] Tramadol HCl [Tramadol 50mg 50 mg PO Q6HP PRN 11/08/21 11/08/21 Tab] cephALEXin [cephALEXin 500mg 500 mg PO DAILY 11/08/21 11/08/21 capsule*] Allergies Allergy/AdvReac Type Severity Reaction Status Date / Time metoprolol Allergy Intermediate Verified 04/19/20 13:46 acetaminophen [From Vicodin] Allergy Unknown Verified 04/19/20 13:46 hydrocodone [From Vicodin] Allergy Unknown Verified 04/19/20 13:46 [facility] History - Hepatitis A Screen Attestation statement:: This patient has been screened for Hepatitis A risk factors. I have reviewed the patient's past medical history: Yes Medical History: Reports:: Atrial Fibrillation, Hyperlipidemia, Hypertension Denies:: Cancer, Diabetes Mellitus Type 1, Diabetes Mellitus Type 2, Internal Pacemaker, MRSA, Seizures Other Medical History: Denies: Blood Transfusion Reaction Laterality Cases: Bilateral: Other Other Surgeries: Yes: Hernia Repair, Hysterectomy-Total, Other. No: Pacemaker Amputation: No Fractures: No Comment: left ear, tail bone - Social History Smoking Status: Never smoker Alcohol Intake: never Substance Use Type: denies use Occupational Status: other Housing: house Household Members: spouse Family Hx:: Cancer, Coronary Artery Disease ROS Obtained: Yes All systems reviewed & no additional complaints - Constitutional Constitutional: Reports as per HPI - Eyes Eyes: Denies eye discharge - ENT Ears, Nose, Mouth, and Throat: Reports dizziness, Denies otalgia, Denies sore throat, Denies throat swelling, Denies vertigo/dizziness - Cardiovascular Card
[2021-11-08 11:41] LABS: Apearance,Urine Clear (Clear); Bilirubin,Urine 2+ (Negative); Blood, Urine Trace (Negative); Color,Urine Yellow (Yellow); Glucose,Urine (UA) Negative (Negative); Ketones,Urine TRACE (Negative); PH,Urine 5.5 (5.0-8.5); Protein,Urine 1+ (Negative); UTC Leukocyte Esterase,Urine Negative (Negative); UTC Nitrate,Urine Negative (Negative); Urobilinogen,Urine 1 EU/dl (0.2)
--- NOTE | 2021-11-08 12:01 | XR_ITS ---
PROCEDURE: XR CHEST PORTABLE CLINICAL HISTORY: sob COMPARISON: CR XR CHEST 2V from 05/07/2021 FINDINGS: Mild cardiomegaly without failure. There are low lung volumes with atelectatic changes in both lower lobes. Right hemidiaphragm is elevated. Upper lobes are clear. No acute bony abnormalities. IMPRESSION: Low lung volumes with bilateral lower lobe atelectatic change Dictated by: Kwame Manzanares MD 11/08/2021 12:21 Kwame Manzanares MD in [place] 11/08/2021 12:21
--- NOTE | 2021-11-08 12:10 | HMH.EDGENADL ---
ED Disposition Clinical Impression: Vomiting and diarrhea Disposition: Home, Self-Care Condition on Discharge: Fair Instructions: DI for Vomiting -- Adult, DI for Diarrhea and Traveler's Diarrhea -- Adult Additional Instructions: Collect diarrhea sample as an outpatient and bring him back to the lab for testing. Zofran as needed for nausea. Rest and drink plenty of fluids. Follow-up with your primary care provider next week, call Thursday to make appointment Prescriptions: Ondansetron [Zofran 4mg ODT] 4 mg PO TIDP PRN #10 tab PRN Reason: Nausea And Vomiting Transmission Status: Pending to Clinic Pharm[facility] Referrals: Roderick Eddy [Primary Care Provider] - - Critical Care Critical Care Time: No Attestation: On 11/08/21, the high probability of a clinically significant, sudden or life threatening deterioration of the following system(s) required my full and direct attention, intervention and personal management. The time I documented below is in addition to time spent performing reported procedures but includes the following listed in this critical care notation. Medical Decision Making - Leo Inquiry Pt receiving controlled substance: No Vital Signs: 11/08/21 11:00 11/08/21 11:54 11/08/21 12:00 Temperature 97.9 F 99.1 F Temperature Source Oral Oral Pulse Rate 69 Pulse Rate [Right Brachial] 70 78 Respiratory Rate 17 30 H 17 Blood Pressure 141/73 H Blood Pressure [Right Arm] 146/87 H 164/72 H Blood Pressure Mean Blood Pressure Mean [Right Arm] 106 102 Blood Pressure Source [Right Arm] Automatic Cuff Blood Pressure Position [Right Arm] Sitting Sitting 02 Sat by Pulse Oximetry 97 90 L 98 Oxygen Delivery Method Room Air Room Air Nasal Cannula 11/08/21 12:30 11/08/21 13:01 11/08/21 13:31 Temperature Temperature Source Pulse Rate 63 62 58 L Pulse Rate [Right Brachial] Respiratory Rate 22 19 21 Blood Pressure 137/75 131/60 136/79 Blood Pressure [Right Arm] Blood Pressure Mean 91 88 Blood Pressure Mean [Right Arm] Blood Pressure Source [Right Arm] Blood Pressure Position [Right Arm] 02 Sat by Pulse Oximetry 97 99 98 Oxygen Delivery Method Nasal Cannula Nasal Cannula Nasal Cannula - Lab Data Lab Results 11/08/21 10:50: Urine Color Yellow, Urine Appearance Clear, Urine pH 5.5, Ur Specific [place] >= 1.030, Urine Protein 1+, Urine Glucose (UA) Negative, Urine Ketones Trace, Urine Blood Trace-i, Urine Nitrate Negative, Urine Bilirubin 2+ A, Urine Urobilinogen 1.0, Ur Leukocyte Esterase Negative, Urine RBC Occasional, Urine WBC Occasional, Ur Renal Epithelial Cell 3-5, Amorphous Sediment 2+, Urine Mucus Trace 11/08/21 10:55: Urine Color Yellow, Urine Appearance Clear, Urine pH 5.5, Ur Specific [place] 1.030, Urine Protein 1+, Urine Glucose (UA) Negative, Urine Ketones Trace, Urine Blood Trace, Urine Nitrate Negative, Urine Bilirubin 2+ A, Urine Urobilinogen 1, Ur Leukocyte Esterase Negative 11/08/21 12:03: Sodium 134 L, Potassium 5.2 H, Chloride 96 L, Carbon Dioxide 26, Anion Gap 17.2 H, BUN 21 H, Creatinine 1.40 H, Estimated Creat Clear 47, Estimated GFR 36 L, Est GFR ( Amer) 44 L, Glucose 124 H, Calcium 9.0, Total Bilirubin 1.4 H, AST 78 H, ALT 56, Alkaline Phosphatase 57, Troponin I 0.02, Total Protein 7.3, Albumin 4.0, Globulin 3.3 H, Albumin/Globulin Ratio 1.2 11/08/21 12:03: NT-Pro-B Natriuret Pep 29267 H 11/08/21 12:24: SARS-CoV-2 (PCR) Not detected, Influenza A Untype (PCR) Not detected, Influenza Type B (PCR) Not detected 11/08/21 12:39: WBC 6.9, RBC 4.29, Hgb 14.0, Hct 44.3, MCV 103.3 H, MCH 32.6 H, MCHC 31.6 L, RDW 16.4, Plt Count 190, MPV 8.6, Neut % (Auto) 83.1 H, Lymph % (Auto) 8.3 L, [place] % (Auto) 6.8, Eos % (Auto) 1.3, Baso % (Auto) 0.5, Neut # (Auto) 5.7, Lymph # (Auto) 0.6 L, [place] # (Auto) 0.5, Eos # (Auto) 0.1, Baso # (Auto) 0.0 Result diagrams: 11/08/21 12:39 11/08/21 12:03 Orders (Tests/Meds): ED MEDICATIONS Generic Name Dose Ro
[2021-11-08 12:26] LABS: Chloride 96 mmol/L (98-107); Sodium 134 mmol/L (136-145)
[2021-11-08 12:29] LABS: Alanine Aminotransferase 56 U/L (12-78); Albumin/Globulin Ratio 1.2 (1.1-1.8); Alkaline Phosphatase 57 U/L (38-126); Aspartate Amino Transferase 78 U/L (14-36); Bilirubin,Total 1.4 mg/dl (0.2-1.3); Blood Urea Nitrogen 21 mg/dl (7-17); Carbon Dioxide 26 mmol/L (22.0-30.0); Creatinine Clearance Estimated 47 mL/min (50-200); Estimated Glomerular Filt Rate 36 ml/min (>60); GFR (African American) 44 ML/MIN (>60); Globulin 3.3 g/dL (1.3-3.2); Total Protein,Serum 7.3 g/dl (6.3-8.2)
[2021-11-08 12:30] LABS: Glucose 124 mg/dl (74-100)
[2021-11-08 12:39] LABS: NT Pro Brain Natriuretic Pep. 17700 pg/mL (0-450)
[2021-11-08 12:41] LABS: Troponin I 0.02 ng/ml (0.00-0.034)
[2021-11-08 12:51] LABS: Coronavirus 19, PCR Not Detected (NotDetected); Influenza A, PCR Not Detected (NotDetected); Influenza B, PCR Not Detected (NotDetected)
[2021-11-08 12:53] LABS: Microscopic, Urine URINE MICROSCOPIC (MICROSCOPIC)
[2021-11-08 12:56] LABS: Basophils % 0.5 % (0.1-2.0); Eosinophils # 0.1 K/mm3 (0.0-0.4); Eosinophils % 1.3 % (0.1-12.0); Hematocrit 44.3 % (37.0-47.0); Lymphocytes # 0.6 K/mm3 (0.7-4.5); Lymphocytes % 8.3 % (10-50); Mean Corpuscular HGB Conc 31.6 g/dL (31.8-35.4); Mean Corpuscular Hemoglobin 32.6 pg (27.0-31.2); Mean Corpuscular Volume 103.3 fl (81-99); Mean Platelet Volume 8.6 fl (7.4-10.4); Monocytes # 0.5 K/mm3 (0.1-1.0); Monocytes % 6.8 % (1.7-9.3); Neutrophils # 5.7 K/mm3 (1.8-7.8); Neutrophils % 83.1 % (37.0-80.0); Platelet Count 190 K/mm3 (142-424); Red Blood Count 4.29 M/mm3 (4.20-5.40); Red Cell Distribution Width 16.4 % (11.5-17.5); White Blood Count 6.9 K/mm3 (4.8-10.8)
[2021-11-08 12:58] LABS: Appearance,Urine CLEAR (Clear); Blood, Urine TRACE-I (Negative); Color,Urine YELLOW (Yellow); Glucose,Urine (UA) Negative (Negative); Ketones,Urine TRACE (Negative); Leukocyte Esterase,Urine Negative (Negative); Nitrate,Urine Negative (Negative); PH,Urine 5.5 (5.0-8.5); Protein,Urine 1+ (Negative); Specific Gravity, Urine >= 1.030 (1.005-1.030)
[2021-11-08 13:26] LABS: Bilirubin,Urine 2+ (Negative)
[2021-11-08 13:29] LABS: Amorphous Sediment,Urine 2+ /lpf; Mucus,Urine Trace /lpf
[2021-11-08 13:31] LABS: RBC,Urine Occasional #/hpf (0-3); WBC,Urine Occasional #/hpf (0-3)
--- NOTE | 2021-11-08 13:34 | ECG_ITS ---
APPROVED REPORT Exam: Resting ECG HR:57 bpm ECG Measurements Heart Rate 57 AXES NV 326 P 59 QRSd 150 QRS -42 QT 490 T 105 QTc 476 Conclusion Sinus bradycardia with 1st degree AV block Left axis deviation Right bundle branch block Septal infarct, age undetermined T wave abnormality, consider lateral ischemia Abnormal ECG Electronically signed by : Sadi Garcia MD 11/09/2021 09:50:08
[2021-11-08 13:39] LABS: Anion Gap 17.2 mEq/L (5-15)
[2021-11-08 13:46] LABS: Potassium 5.2 mmoL/L (3.5-5.1)
== END 2021-11-08 14:54 | disposition home or self-care (01) ==
LOC: UTC 10:13 → ER 11:44
PROVIDERS: Nurse Practitioner Family; Emergency Provider Emergency Medicine; PCP Internal Medicine
DX: N30.01 Acute cystitis with hematuria (principal); R42 Dizziness and giddiness; E78.5 Hyperlipidemia, unspecified; I48.91 Unspecified atrial fibrillation; I10 Essential (primary) hypertension; Z79.899 Other long term (current) drug therapy
CPT/HCPCS: 36415; 71045; 80053; 81001; 81003; 83880; 84484; 85025; 87086; 93005; 96365; 99283; C9803; J2405; U0003; U0005

== ENCOUNTER 2021-11-11 00:09 | Inpatient (IN) | payer MEDICARE, SELFPAY ==
[2021-11-11] VITALS (43 sets, daily range): BP systolic 98–158; BP diastolic 40–87; PULSE 46–78; RESP 14–19; TEMP 36.4–36.6; O2SAT 87–99; BMI 33.7; BMI 34.5
--- NOTE | 2021-11-11 00:16 | XR_ITS ---
PROCEDURE INFORMATION: Exam: XR Chest Exam date and time: 11/11/2021 12:16 AM Age: 80 years old Clinical indication: Shortness of breath and other: General weakness; Additional info: SOA, decreased o2 TECHNIQUE: Imaging protocol: XR of the chest. Views: 1 view. COMPARISON: CR XR CHEST PORTABLE 11/08/2021 12:04 PM FINDINGS: Lungs: Limited inspiration and penetration of the chest with obese body habitus. There are linear zones of increased density noted within right mid and lower lung zones and within the left lower lobe. Similar findings noted on prior examination of 11/08/2021. These findings are likely related to atelectasis and are not appreciably changed. Pleural spaces: Elevation of the right hemidiaphragm again identified. No evidence of pleural effusion or pneumothorax. Heart/Mediastinum: Heart size is not enlarged. There is atheromatous calcification of the thoracic aortic arch. There is calcification noted along the inferior aspect of the cardiomediastinal silhouette which could represent calcification of portions of the mitral valve. Bones/joints: Osteopenia of visualized bones. Degenerative changes of the thoracic spine and shoulders. IMPRESSION: Limited inspiration. Atelectatic changes are again identified essentially unchanged since prior examination. No evidence of pulmonary vascular congestion. There is no evidence of pleural effusion.
--- NOTE | 2021-11-11 00:16 | ECG_ITS ---
APPROVED REPORT Exam: Resting ECG HR:124 bpm ECG Measurements Heart Rate 124 AXES QRSd 102 QRS -73 QT 246 T 213 QTc 353 Conclusion Undetermined rhythm Left axis deviation Low voltage QRS Inferior infarct, age undetermined Anterolateral infarct, age undetermined Abnormal ECG Electronically signed by : Sadi Garcia MD 11/11/2021 21:38:31
[2021-11-11 00:32] LABS: ABG Base Excess 0.6 mmol/L (-2.4-2.3); ABG HCO3 26.5 mmhg (22.0-26.0); ABG Oxygen Saturation 86 % (90-100); ABG PH 7.33 mmol/L (7.35-7.45); ABG PO2 51.9 mmhg (80-100); Allen's Test Y; Oxygen r/a %; Source R/R
[2021-11-11 00:36] LABS: ABG PCO2 50.9 mmhg (35.0-45.0)
--- NOTE | 2021-11-11 00:38 | PC.NURSE ---
notified of ABG: CO2 50.9 PO2 51 Sat 85.5
--- NOTE | 2021-11-11 00:38 | HMH.EDGENADL ---
ED Disposition Clinical Impression: Acute respiratory failure with hypoxia, Acute kidney injury superimposed on CKD, Bilateral lower extremity edema Disposition: Admitted As Inpatient Condition on Discharge: Fair - Critical Care Critical Care Time: No Attestation: On 11/11/21, the high probability of a clinically significant, sudden or life threatening deterioration of the following system(s) required my full and direct attention, intervention and personal management. The time I documented below is in addition to time spent performing reported procedures but includes the following listed in this critical care notation. Medical Decision Making - Leo Inquiry Pt receiving controlled substance: No Vital Signs: 11/11/21 00:07 Temperature 97.8 F Temperature Source Oral Pulse Rate [Left Brachial] 62 Respiratory Rate 19 Blood Pressure [Left Arm] 148/57 H Blood Pressure Mean [Left Arm] 87 Blood Pressure Source [Left Arm] Automatic Cuff Blood Pressure Position [Left Arm] Sitting 02 Sat by Pulse Oximetry 87 L Oxygen Delivery Method Room Air - Lab Data Lab Results 11/11/21 00:16: Specimen Source R/r, O2 % r/a, ABG pH 7.33 L, ABG pCO2 50.9 H, ABG pO2 51.9 L, ABG HCO3 26.5 H, ABG Total CO2 28.0 H, ABG O2 Saturation 86 L*, ABG Base Excess 0.6, Kwame Test Y 11/11/21 00:40: WBC 6.7, RBC 4.05 L, Hgb 13.3, Hct 42.6, MCV 105.2 H, MCH 32.9 H, MCHC 31.3 L, RDW 17.5, Plt Count 221, MPV 8.8, Neut % (Auto) 74.8, Lymph % (Auto) 13.1, [place] % (Auto) 9.4 H, Eos % (Auto) 1.5, Baso % (Auto) 1.1, Neut # (Auto) 5.0, Lymph # (Auto) 0.9, [place] # (Auto) 0.6, Eos # (Auto) 0.1, Baso # (Auto) 0.1 11/11/21 00:40: Sodium 133 L, Potassium 5.0, Chloride 94 L, Carbon Dioxide 32 H, Anion Gap 12.0, BUN 36 H D, Creatinine 2.50 H D, Estimated Creat Clear 26, Estimated GFR 19 L*, Est GFR ( Amer) 22 L D, Glucose 101 H, Calcium 8.8, Phosphorus 5.0 H, Magnesium 1.8, Total Bilirubin 0.9, AST 128 H D, ALT 100 H D, Alkaline Phosphatase 60, Troponin I 0.02, NT-Pro-B Natriuret Pep 04935 H, Total Protein 6.9, Albumin 3.7, Globulin 3.2, Albumin/Globulin Ratio 1.2 11/11/21 02:08: SARS-CoV-2 (PCR) Not detected, Influenza A Untype (PCR) Not detected, Influenza Type B (PCR) Not detected Result diagrams: 11/11/21 00:40 11/11/21 00:40 Orders (Tests/Meds): ED MEDICATIONS Discontinued Medications Generic Name Dose Route Start Last Admin Trade Name Freq PRN Reason Stop Dose Admin Furosemide 40 mg 11/11/21 00:49 11/11/21 01:16 Furosemide 40mg/4ml Vial IV 11/11/21 00:50 40 mg ONCE ONE Administration Furosemide 20 mg 11/11/21 01:49 Furosemide 20 Mg/2 Ml Vial IV 11/11/21 01:50 ONCE ONE ORDERS Category Date Time Status Troponin I Q3H Lab 11/11/21 03:30 Ordered Troponin I Q3H Lab 11/11/21 06:30 Ordered Medical Decision Narrative: DDx includes but not limited to jojo on ckd, pleural effusion, chf exacerbation, pneumonia, electrolyte abnormality. normally on room air at baseline but requiring 2 lpm nc to maintain spo2>92% here in ED. nonfocal exam moving all extremities spontaneously with some force against gravity but with self reported generalized weakness. lives at home only with elderly who would not be able to move her out of bed for her to shower or bathe or go to restroom. ekg shows sinus rhythm, no stemi. Will obtain labs and imaging to further assess. labs reveal jojo, elevated bnp 17k but similar to 3 days ago. cxr does not show focal opacity, large pleural effusion. still requiring up to 2 lpm nc for spo2>90%. given 20 mg iv lasix for diuresis in setting of significant ble edema, possible chf exacerbation. plan for admission for new oxygen requirement, continued diuresis, pt/ot for functional status decline. General Adult HPI - General Chief complaint: Weakness Stated complaint: weakness,general malaise Time Seen by Provider: 11/11/21 00:38 Mode of Arrival: EMS Limitations: No Limitations Description of Symptoms
[2021-11-11 00:50] LABS: Basophils # 0.1 K/mm3 (0-0.2); Basophils % 1.1 % (0.1-2.0); Eosinophils # 0.1 K/mm3 (0.0-0.4); Eosinophils % 1.5 % (0.1-12.0); Hematocrit 42.6 % (37.0-47.0); Hemoglobin 13.3 g/dL (12.2-16.2); Lymphocytes # 0.9 K/mm3 (0.7-4.5); Lymphocytes % 13.1 % (10-50); Mean Corpuscular HGB Conc 31.3 g/dL (31.8-35.4); Mean Corpuscular Hemoglobin 32.9 pg (27.0-31.2); Mean Corpuscular Volume 105.2 fl (81-99); Mean Platelet Volume 8.8 fl (7.4-10.4); Monocytes # 0.6 K/mm3 (0.1-1.0); Monocytes % 9.4 % (1.7-9.3); Neutrophils % 74.8 % (37.0-80.0); Platelet Count 221 K/mm3 (142-424); Red Blood Count 4.05 M/mm3 (4.20-5.40); Red Cell Distribution Width 17.5 % (11.5-17.5); White Blood Count 6.7 K/mm3 (4.8-10.8)
[2021-11-11 01:00] LABS: Alanine Aminotransferase 100 U/L (12-78); Albumin Level 3.7 g/dl (3.5-5.0); Albumin/Globulin Ratio 1.2 (1.1-1.8); Alkaline Phosphatase 60 U/L (38-126); Aspartate Amino Transferase 128 U/L (14-36); Bilirubin,Total 0.9 mg/dl (0.2-1.3); Blood Urea Nitrogen 36 mg/dl (7-17); Calcium 8.8 mg/dl (8.4-10.2); Carbon Dioxide 32 mmol/L (22.0-30.0); Chloride 94 mmol/L (98-107); Creatinine Clearance Estimated 26 mL/min (50-200); Estimated Glomerular Filt Rate 19 ml/min (>60); GFR (African American) 22 ML/MIN (>60); Globulin 3.2 g/dL (1.3-3.2); Glucose 101 mg/dl (74-100); Magnesium 1.8 mg/dl (1.6-2.3); Sodium 133 mmol/L (136-145); Total Protein,Serum 6.9 g/dl (6.3-8.2)
[2021-11-11 01:12] LABS: NT Pro Brain Natriuretic Pep. 16900 pg/mL (0-450); Troponin I 0.02 ng/ml (0.00-0.034)
[2021-11-11 02:12] LABS: Coronavirus 19, PCR Not Detected (NotDetected); Influenza A, PCR Not Detected (NotDetected); Influenza B, PCR Not Detected (NotDetected)
[2021-11-11 04:21] LABS: Troponin I 0.02 ng/ml (0.00-0.034)
--- NOTE | 2021-11-11 05:51 | PC.NURSE ---
blood collected and sent to lab
[2021-11-11 06:01] LABS: Basophils # 0.1 K/mm3 (0-0.2); Basophils % 0.8 % (0.1-2.0); Eosinophils # 0.1 K/mm3 (0.0-0.4); Eosinophils % 1.3 % (0.1-12.0); Hematocrit 41.9 % (37.0-47.0); Hemoglobin 13.1 g/dL (12.2-16.2); Lymphocytes % 14.5 % (10-50); Mean Corpuscular HGB Conc 31.4 g/dL (31.8-35.4); Mean Corpuscular Hemoglobin 33.3 pg (27.0-31.2); Mean Corpuscular Volume 106.1 fl (81-99); Mean Platelet Volume 8.6 fl (7.4-10.4); Monocytes # 0.7 K/mm3 (0.1-1.0); Monocytes % 10.1 % (1.7-9.3); Neutrophils % 73.3 % (37.0-80.0); Platelet Count 209 K/mm3 (142-424); Red Blood Count 3.94 M/mm3 (4.20-5.40); Red Cell Distribution Width 17.2 % (11.5-17.5); White Blood Count 6.8 K/mm3 (4.8-10.8)
[2021-11-11 06:08] LABS: Chloride 97 mmol/L (98-107); Potassium 5.4 mmoL/L (3.5-5.1); Sodium 134 mmol/L (136-145)
[2021-11-11 06:10] LABS: Blood Urea Nitrogen 37 mg/dl (7-17); Creatinine Clearance Estimated 27 mL/min (50-200); Estimated Glomerular Filt Rate 19 ml/min (>60); GFR (African American) 24 ML/MIN (>60)
[2021-11-11 06:11] LABS: Alanine Aminotransferase 89 U/L (12-78); Albumin Level 3.6 g/dl (3.5-5.0); Albumin/Globulin Ratio 1.1 (1.1-1.8); Alkaline Phosphatase 40 U/L (38-126); Anion Gap 10.4 mEq/L (5-15); Aspartate Amino Transferase 125 U/L (14-36); Calcium 8.4 mg/dl (8.4-10.2); Carbon Dioxide 32 mmol/L (22.0-30.0); Globulin 3.3 g/dL (1.3-3.2); Glucose 82 mg/dl (74-100); Total Protein,Serum 6.9 g/dl (6.3-8.2)
[2021-11-11 06:23] LABS: Troponin I 0.03 ng/ml (0.00-0.034)
--- NOTE | 2021-11-11 07:30 | PC.NURSE ---
pt resting comfortably
--- NOTE | 2021-11-11 10:04 | HMH.HP ---
*Admission Date: 11/11/21 *Chief complaint: Generalized weakness *History of present illness: 80-year-old female with a history of CHF ( 30% function), CKD 3, A. fib on eliquis, obesity, presents for evaluation of weakness. Patient states she has had increasing generalized weakness for the last 3 days. Patient states that he was diagnosed with urinary tract infection last Thursday and was transferred from the urgent care center to the ER here concerns that they were giving fluids too quickly for my heart . Patient states she was discharged from the ER and was told that everything was normal . States she has had increasing generalized weakness, malaise unable to get up from the couch she was laying all day. States she has not been eating as well or drinking as well as normal. She took all her regular medications today. Denies chest pain, trouble breathing, cough, fevers (Per Dr. Rajan). Her BUN in the ER was 37 creatinine 2.4 her BNP was almost 17,000 she did receive Lasix 40 mg and 20 mg IV in the emergency department She reports that she is a patient of Dr. Eddy and sees cardiology at . She reports she has an ejection fraction of 30% with a longstanding history of congestive heart failure and lymphedema. 11/10/20 cxr: IMPRESSION: Limited inspiration. Atelectatic changes are again identified essentially unchanged since prior examination. No evidence of pulmonary vascular congestion. There is no evidence of pleural effusion. Electronically signed by Magen Gomez MD 80-year-old female patient resting in bed quietly in the emergency department she denies any chest pain or shortness of breath present she reports she does still feel weak but better than yesterday. She denies any nausea and has tolerated breakfast without any difficulties. Current oxygenation status 94% on 2 L per nasal cannula she reports she is not on any oxygen at home. Heart rate has been in the 50s and she reports this is normal for her. [facility] History I have reviewed the patient's past medical history: Yes Medical History: Reports:: Atrial Fibrillation, Hyperlipidemia, Hypertension Denies:: Cancer, Diabetes Mellitus Type 1, Diabetes Mellitus Type 2, Internal Pacemaker, MRSA, Seizures *Have you ever received a pneumonia vaccine?: No *Have you received a flu vaccine this season?: No Other Medical History: Denies: Blood Transfusion Reaction Laterality Cases: Bilateral: Other Other Surgeries: Yes: Hernia Repair, Hysterectomy-Total, Other. No: Pacemaker Amputation: No Fractures: No - *Social History Last grade of school completed: High school graduate Smoking Status: Never smoker Alcohol Intake: never Alcohol Intake Frequency:: 0-2 drinks per day Substance Use Type: denies use *Occupational Status:: other Housing: house Household Members: spouse *Travel in the last 8 weeks: None Family Hx:: Cancer, Coronary Artery Disease Review of Systems - Review of Systems Review of systems:: pertinent systems reviewed and negative unless documented below - Constitutional Reports lack of energy, Reports malaise, Reports weakness - Eyes Denies blurry vision, Denies double vision - ENT Denies dizziness, Denies difficulty swallowing - *Cardiovascular Denies chest pain, Denies chest pain at rest, Denies shortness of breath - *Respiratory Denies chest congestion, Denies shortness of breath - *Gastrointestinal Reports nausea, Denies abdominal pain, Denies change in bowel habits - *Neurologic Reports weakness Meds Home Medications Medication Instructions Recorded Confirmed Type Amiodarone HCl 200 mg PO DAILY 11/08/21 11/11/21 History Apixaban [Eliquis] 5 mg PO DAILY 11/08/21 11/11/21 History Gabapentin [Neurontin 600mg 600 mg PO QID 11/08/21 11/11/21 History tablet] Ondansetron [Zofran 4mg ODT] 4 mg PO TIDP PRN #10 tab 11/08/21 11/11/21 Rx Tramadol HCl [Tramadol 50mg 50 mg PO Q6HP PRN 11/08/21 11/11/21 History Tab] Prochlorpera
--- NOTE | 2021-11-11 10:30 | PC.NURSE ---
pt resting quietly
--- NOTE | 2021-11-11 11:06 | CA_ITS ---
APPROVED REPORT EXAM: Comprehensive 2D, Doppler, and color-flow Echocardiogram Art Display Maker: Jessie Cornelius CRT Ht: 5 ft 4 in Wt: 200lbs BSA: 1.96 BP: 148/57 mmHg Indications: Congestive Heart Failure, Peripheral Edema, CHF, PER PT EF 30% ON ECHO 2 WKS AGO @ [facility]. AWAITING A DECISION ON AICD. HR IN 40'S. 2D Dimensions LVOT 1.79 cm (M/F) 1.5-2.5 LA Volume 115.50 mL LA Volume Index 58.90 mL/m2 (M/F) 16-34 M-Mode Dimensions RVDd 2.37 cm (0.9-2.6) LA Diam 4.13 cm (1.9-4.0) LVDd 5.68 cm (3.5-5.7) Ao Diam 4.18 cm (2.0-3.7) LVDs 4.58 cm (3.5-5.7) IVSd 1.33 cm (0.6-1.1) PWd 0.74 cm (0.6-1.1) EF (Teich) 39.40% FS 19.40% EDV (Teich) 158.80 mL TAPSE 2.30 (<1.7) ESV (Teich) 96.30 mL LV Diastology E Decel Time 147.00 (160-240 msec) E/A Ratio 2.97 MED E' 3.40 (< 7 cm/sec) MED A' 12.90 cm/s E'/MED E' Ratio 29.03 (>14) LAT E' 4.80 (<10 cm/sec) LAT A' 4.10 cm/s E/LAT E' Ratio 20.56 (>14) Aortic Valve AO Peak GR. 4.80 mmHg Mitral Valve MV E Max Jaxon. 99.00 (40-130 cm/s) MV A Velocity 33.00 (40-130 cm/s) E/A Ratio 2.97 MV Decel. Time 147.00 (160-240 ms) MV PHT 43.00 ms Pulmonary Valve PV Peak Velocity 152.00 (50-150 cm/s) Tricuspid Valve TR P. Velocity 356.00 cm/s RAP Estimate 10.00 mmHg RVSP 60.70 mmHg Left Ventricle Technically difficult and poor study because of the patient factors and poor acoustic windows. Left atrium is moderately enlarged, left ventricle is mildly dilated, mild concentric left ventricular hypertrophy, visually estimated ejection fraction approximately 30%, left ventricle appears to be globally hypokinetic. Diastolic parameters are inconclusive. Right Ventricle Right atrium and right ventricle moderately enlarged with normal contractility. Aortic Valve Aortic valve is thickened and calcified without Doppler evidence of aortic stenosis or significant aortic insufficiency. Mitral Valve Mitral valve leaflets are minimally thickened there is mitral annular calcification present. There is mild mitral regurgitation. Tricuspid Valve Tricuspid valve grossly normal, there is mild tricuspid regurgitation, calculated right ventricular systolic pressure 61 mmHg. Pulmonic Valve Pulmonic valve is poorly visualized. Great Vessels Aortic root is normal size. Inferior vena cava is poorly visualized. Pericardium No significant pericardial effusion noted. Conclusion 1. Biatrial enlargement, dilated left ventricle, visually estimated ejection fraction 30%, left ventricle is globally hypokinetic, endocardial surfaces are very poorly visualized. Diastolic parameters are inconclusive. 2. Mild mitral and tricuspid regurgitation, calculated right ventricular systolic pressure is 61 mmHg. 3. Moderately enlarged right ventricle with normal contractility 4. No significant pericardial effusion noted. 5. Inferior vena cava is poorly visualized. Electronically signed by : Parveen Sierra MD 11/11/2021 17:49:29
--- NOTE | 2021-11-11 12:08 | HMH.CNCARD ---
History of Present Illness Consult date: 11/11/21 Requesting physician: Eugene Burgess Consult reason: shortness of breath Chief complaint: Shortness of breath History of present illness: 80-year-old female presented to [facility] ED with generalized weakness. Patient had recently been diagnosed with UTI. Patient states for the past few days she is becoming generally more weak especially performing her ADLs. Patient denies chest pain, tightness or pressure. Patient does complain of worsening shortness of breath requiring oxygen. Patient denies productive cough. Patient does have lower swelling of the lower extremities. Patient does have history of lymphedema of the lower extremities. Patient states she is currently being treated by public opinion survey taker Dr. Carmona from [facility]. Patient stated she saw Dr. Carmona within the past 2 weeks in which she underwent echocardiogram. Patient states Dr. Carmona told her 30% of her heart was working. Patient states at that time he did discuss AICD. Patient states she does have an appointment to see Dr. Carmona and does plan on speaking with him regarding the AICD placement. Patient does not want to change cardiology. Patient is known to have history of atrial fibrillation. Patient is on Eliquis. Denies any bleeding issues. Patient states she is unable to take beta-blockers due to allergic reactions such as hives. Patient does have history of chronic kidney disease stage III. Patient states she does follow-up with her public opinion survey taker regarding her renal failure. Patient states she had been on amiodarone up until she saw Dr. Carmona at appointment. Patient states if she is to have any cardiac testing she prefers to have with her public opinion survey taker Dr. Carmona. This cardiology does recommend medication changes. We will stop her Maxide due to GFR. Start her on Entresto 24/26 mg p.o. twice daily. If she is unable to tolerate we will start on hydralazine and nitrate. Patient does have history of hypertension and hyperlipidemia. Creatinine level 2.40 with a BUN of 37. Electrolyte imbalance noted with elevated potassium and decreased sodium. This is being managed by PCP. Patient was given 2 doses of Lasix IV in the ER. Patient has diuresed slightly. Casper catheter is intact draining dark yellow urine. turbinated bone grinder reveals atrial fibrillation with a heart rate of 40 bpm. Blood pressure is stable. Chest x-ray revealed limited inspiration. No evidence of pulmonary vascular congestion. And there is no evidence of pleural effusion. Echocardiogram will be obtained to assess LV function and valve status. This was ordered by PCP. CXR:FINDINGS: Lungs: Limited inspiration and penetration of the chest with obese body habitus. There are linear zones of increased density noted within right mid and lower lung zones and within the left lower lobe. Similar findings noted on prior examination of 11/08/2021. These findings are likely related to atelectasis and are not appreciably changed. Pleural spaces: Elevation of the right hemidiaphragm again identified. No evidence of pleural effusion or pneumothorax. Heart/Mediastinum: Heart size is not enlarged. There is atheromatous calcification of the thoracic aortic arch. There is calcification noted along the inferior aspect of the cardiomediastinal silhouette which could represent calcification of portions of the mitral valve. Bones/joints: Osteopenia of visualized bones. Degenerative changes of the thoracic spine and shoulders. IMPRESSION: Limited inspiration. Atelectatic changes are again identified essentially unchanged since prior examination. No evidence of pulmonary vascular congestion. There is no evidence of pleural effusion. [facility] History I have reviewed the patient's past medical history: Yes Medical History: Reports:: Atrial Fibrillation, Hyperlipidemia, Hypertension Denies:: Cancer, Diabetes Mellitus Type 1, Diabetes Mellitus Type 2
--- NOTE | 2021-11-11 13:27 | PC.NURSE ---
Echo at bedside
--- NOTE | 2021-11-11 14:42 | PC.NURSE ---
Checked on pt brought tray next to pt, and made sure call light was within reach.
--- NOTE | 2021-11-11 15:30 | HMH.PHAVTE ---
[facility] Pharmacy VTE Monitoring - Patient Demographics Admission date: 11/11/21 Report Date: 11/11/21 Time: 15:30 Allergies/Adverse Reactions: Patient Allergies metoprolol Allergy (Intermediate, Verified 11/11/21 11:02) Hives acetaminophen [From Vicodin] Allergy (Unknown, Verified 11/11/21 11:02) Hives hydrocodone [From Vicodin] Allergy (Unknown, Verified 11/11/21 11:02) Hives sulfamethoxazole [From Bactrim] Allergy (Unknown, Verified 11/11/21 11:02) Unknown allergy reaction trimethoprim [From Bactrim] Allergy (Unknown, Verified 11/11/21 11:02) Unknown allergy reaction Height: 1.64 m Weight: 90.718 kg Patient Problems: Current Active Problems Acute respiratory failure with hypoxia (Acute) Acute kidney injury superimposed on CKD (Acute) Bilateral lower extremity edema (Acute) A-fib (Acute) HLD (hyperlipidemia) (Acute) - VTE Risk Labs: VTE Related Lab Results Hgb 13.1 g/dL (12.2-16.2) 11/11/21 05:47 Hct 41.9 % (37.0-47.0) 11/11/21 05:47 Plt Count 209 K/mm3 (142-424) 11/11/21 05:47 BUN 37 mg/dl (7-17) H 11/11/21 05:47 Creatinine 2.40 mg/dl (0.52-1.04) H 11/11/21 05:47 Estimated Creat Clear 27 mL/min (50-200) 11/11/21 05:47 Clinical Trial Participant: No - Prophylaxis VTE Prophylaxis Ordered?: Yes Types of VTE Prophylaxis: TEDS Knee High
--- NOTE | 2021-11-11 15:39 | PC.NURSE ---
report called to floor
--- NOTE | 2021-11-11 16:20 | PC.WOUNDNOTE ---
stage two noted on rt side of lower back redness noted, with stage 1 noted to left buttock bruises noted to bilat shins. bruise on rt jara is swollen and hard. scar noted right beside bruise on rt jara
--- NOTE | 2021-11-11 18:45 | PC.NURSE ---
Pt has done fine since arriving to the floor. During head to toe assessment, multiple areas found- SEE NURSE WOUND NOTE. Pt has remained on RA w/ o2 sats between 95-98%. Scattered wheezing noted t/o all lung peace. +3 pitting edema noted to bilat feet, as well as +2 pitting edema noted to BLE. Non-skid socks applied for safety. No other acute changes or complaints, will continue to monitor.
[2021-11-12 04:00] VITALS: BP 128/56; PULSE 58; RESP 18; TEMP 36.6; O2SAT 94
--- NOTE | 2021-11-12 04:44 | PC.NURSE ---
No acute changes this shift. Pt alert and oriented, no c/o of SOA and has remained on RA t/o shift with O2 sats above 90%. Casper cath draining clear yellow urine at bedside. Call ennis in reach, will continue to monitor.
[2021-11-12 05:14] VITALS: BMI 32.2
--- NOTE | 2021-11-12 07:30 | HMH.PNCARD ---
Subjective Date: 11/12/21 Time: 07:30 Principal diagnosis: CHF and CMP Interval history: 80-year-old female presented to [facility] ED with generalized weakness and Acute on Chronic Systolic Congestive heart failure on 11/11/21. Patient is resting comfortably in bed. Patient denies any discomfort. Patient states her shortness of breath has improved. Patient states she feels as though she has more energy this a.m. Patient states after receiving Lasix and having fluid off, she is feeling much better. Patient has diuresed almost 2000 mL in a 24-hour.. Weight is down 13 pounds. Uncertain if that is the correct weight loss. Patient denies chest pain, tightness or pressure. Patient denies productive cough. Patient does have lower swelling of the lower extremities. Patient does have history of lymphedema of the lower extremities. Maxzide was DC'd yesterday due to GFR. Patient was started on Entresto p.o. twice daily yesterday. Patient states she is able to tolerate the medication at this time. Patient did undergo echocardiogram. Echocardiogram revealed EF 30% with left ventricle is globally hypokinetic. Mild MR and TR noted. Mildly enlarged right ventricle with normal contractility noted. Patient states she is aware of her ejection fraction being 30%. Patient is followed by Dr. Ponce (Cardologist) from [facility]. Patient stated she saw Dr. Ponce within the past 2 weeks in which she underwent echocardiogram. Patient states Dr. Ponce told her 30% of her heart was working. Patient states at that time he did discuss AICD. Patient states she does have an appointment to see Dr. Ponce to schedule AICD placement due to ischemic cardiomyopathy. Patient does not want to change cardiology. Patient is known to have history of atrial fibrillation. Patient is on Eliquis. Patient states Dr. Ponce did decrease the dosage on her Eliquis due to her low renal function. Denies any bleeding issues. Patient states she is unable to take beta-blockers due to allergic reactions such as hives. Patient states she had been on amiodarone due to her atrial fib until her follow up with Dr. Ponce and he stopped her Amiodarone. Echo:Conclusion 1. Biatrial enlargement, dilated left ventricle, visually estimated ejection fraction 30%, left ventricle is globally hypokinetic, endocardial surfaces are very poorly visualized. Diastolic parameters are inconclusive. 2. Mild mitral and tricuspid regurgitation, calculated right ventricular systolic pressure is 61 mmHg. 3. Moderately enlarged right ventricle with normal contractility 4. No significant pericardial effusion noted. 5. Inferior vena cava is poorly visualized. Exam Vital signs and Labs for Last 24 Hours: Temp Pulse Resp BP Pulse Ox 97.9 F 58 L 18 128/56 L 94 L 11/12/21 04:00 11/12/21 04:00 11/12/21 04:00 11/12/21 04:00 11/12/21 04:00 I & O for Last 24 hours: Intake & Output 11/09/21 11/10/21 11/11/21 11/12/21 23:59 23:59 23:59 23:59 Intake Total 240 / 240 Output Total 1200 / 1200 700 / 700 Balance -960 / -960 -700 / -700 Weight 201 lb 6 oz 188 lb 14.4 oz - Constitutional no acute distress, obese, cooperative - *Routine HEENT Exam Head: Present: normocephalic ENT: Present: mucous membranes moist - *Routine Neck Exam Present: supple, full ROM, normal carotid upstroke. Absent: JVD, carotid bruit, lymphadenopathy - Routine Chest/Breast/Axilla Exam Chest wall: Present: tenderness. Absent: mass, pacemaker - *Routine Respiratory Exam Present: accessory muscle use, CTA bilaterally Comments: Oxygen supplement - *Routine Cardiovascular Exam Present: RRR, irregular rhythm, irregularly irregular. Absent: JVD Comments: Atrial fibrillation - *Routine Abdominal Exam Present: soft, normoactive bowel sounds. Absent: tenderness, distended, firm - *Routine Extremities Exam Present: edema, full ROM, pulses intact, normal c
[2021-11-12 08:00] VITALS: BP 109/62; PULSE 54; RESP 18; TEMP 36.6; O2SAT 89
[2021-11-12 08:54] LABS: Basophils # 0.1 K/mm3 (0-0.2); Basophils % 0.6 % (0.1-2.0); Eosinophils # 0.2 K/mm3 (0.0-0.4); Hematocrit 46.5 % (37.0-47.0); Hemoglobin 14.8 g/dL (12.2-16.2); Lymphocytes % 13.3 % (10-50); Mean Corpuscular HGB Conc 31.9 g/dL (31.8-35.4); Mean Corpuscular Hemoglobin 33.7 pg (27.0-31.2); Mean Corpuscular Volume 105.6 fl (81-99); Monocytes # 0.7 K/mm3 (0.1-1.0); Monocytes % 8.6 % (1.7-9.3); Neutrophils # 5.7 K/mm3 (1.8-7.8); Neutrophils % 75.4 % (37.0-80.0); Platelet Count 257 K/mm3 (142-424); Red Cell Distribution Width 17.7 % (11.5-17.5); White Blood Count 7.6 K/mm3 (4.8-10.8)
--- NOTE | 2021-11-12 09:21 | HMH.ACPN2 ---
Internal Medicine - PN: Subj *Date: 11/12/21 *Time: 08:00 Interval history: pt reports low back pain Exam Vital signs and Labs for Last 24 Hours: Temp Pulse Resp BP Pulse Ox 97.8 F 54 L 18 109/62 L 89 L 11/12/21 08:00 11/12/21 08:00 11/12/21 08:00 11/12/21 08:00 11/12/21 08:00 Laboratory Results - last 24 hr 11/12/21 08:30: WBC 7.6, RBC 4.40, Hgb 14.8, Hct 46.5, MCV 105.6 H, MCH 33.7 H, MCHC 31.9, RDW 17.7 H, Plt Count 257, MPV 9.0, Neut % (Auto) 75.4, Lymph % (Auto) 13.3, [place] % (Auto) 8.6, Eos % (Auto) 2.0, Baso % (Auto) 0.6, Neut # (Auto) 5.7, Lymph # (Auto) 1.0, [place] # (Auto) 0.7, Eos # (Auto) 0.2, Baso # (Auto) 0.1 I & O for Last 24 hours: Intake & Output 11/09/21 11/10/21 11/11/21 11/12/21 11:59 11:59 11:59 11:59 Intake Total 1275 / 1275 Output Total 1900 / 1900 Balance -625 / -625 Weight 200 lb 188 lb 14.4 oz - Constitutional no acute distress, obese - *Routine HEENT Exam Head: Present: normocephalic Eye: Present: PERRL ENT: Present: mucous membranes moist - *Routine Neck Exam Present: supple. Absent: lymphadenopathy - *Routine Respiratory Exam Present: CTA bilaterally - *Routine Cardiovascular Exam Present: RRR - *Routine Abdominal Exam Present: soft, normoactive bowel sounds. Absent: tenderness - *Routine Extremities Exam Absent: cyanosis, clubbing, edema - *Routine Skin Exam Present: wounds Comments: stage 2 to rt hip and stage 1 coccyx - *Routine Neurological Exam Present: alert, oriented X3 Assessment and Plan (1) Acute kidney injury superimposed on CKD Status: Acute Category: Medical Code(s): N17.9 - Acute kidney failure, unspecified; N18.9 - Chronic kidney disease, unspecified (2) Bilateral lower extremity edema Status: Acute Category: Medical Code(s): R60.0 - Localized edema (3) A-fib Status: Acute Category: Medical Code(s): I48.91 - Unspecified atrial fibrillation (4) HLD (hyperlipidemia) Status: Acute Category: Medical Code(s): E78.5 - Hyperlipidemia, unspecified (5) Acute respiratory failure with hypoxia Status: Acute Category: Medical Code(s): J96.01 - Acute respiratory failure with hypoxia (6) Acute on chronic systolic (congestive) heart failure Status: Acute Category: Medical Code(s): I50.23 - Acute on chronic systolic (congestive) heart failure (7) Ischemic cardiomyopathy Status: Acute Category: Medical Code(s): I25.5 - Ischemic cardiomyopathy - Assessment and plan all Dx Assessment and Plan for all problems:: rounded with dr swann all orders per dr swann pt/ot dev choi pt wants family in on if she needs to rehab or go home
--- NOTE | 2021-11-12 09:49 | SW/DCPLANNER ---
Addendum entered by Erika Garza 11/13/21 14:39: Tesha w/ [facility] has stated that home health services will begin tomorrow. Addendum entered by Erika Garza 11/13/21 10:50: Due to [facility] not accepting any new referrals at this time patient information has been faxed to [facility]. I will follow up with patient and [facility] once patient information is reviewed. Addendum entered by Erika Garza 11/13/21 09:54: Patient information/order has been faxed to [facility] per patient request. I will follow up with [facility] once patient information is reviewed. This patient will discharge home today. Addendum entered by Erika Garza 11/12/21 11:00: Patient/ has stated that PT evaluated this patient (recommended SNF level of care) and they are wanting to return home with home health services. I did have a lengthy conversation with patient/ regarding the difference between placement vs home health. Patient/ is adamant to return home. Patient has all appropriate DME at home and has family at home to assist her. I will relay information to Otto/ Dr Lofton. Family is wanting to speak with daughter prior to making decision regarding home health agency. I will follow up with family once they have a decision regarding home health agency. Original Note: I spoke with this patient this AM regarding discharge plans. Patient stated that she resides at home with family and uses a cane/motorized wheelchair at home. PT/OT evaluation has been ordered this AM for this patient. Once evaluation is completed I will follow up with patient/family regarding discharge plans: home w/ family and home health vs placement. Discharge date is unknown at this time.
[2021-11-12 09:57] LABS: Chloride 100 mmol/L (98-107); Sodium 134 mmol/L (136-145)
[2021-11-12 09:58] LABS: Potassium 5.3 mmoL/L (3.5-5.1)
[2021-11-12 10:00] LABS: Blood Urea Nitrogen 32 mg/dl (7-17)
[2021-11-12 10:01] LABS: Anion Gap 13.3 mEq/L (5-15); Calcium 8.1 mg/dl (8.4-10.2); Carbon Dioxide 26 mmol/L (22.0-30.0); Creatinine Clearance Estimated 34 mL/min (50-200); Estimated Glomerular Filt Rate 27 ml/min (>60); GFR (African American) 33 ML/MIN (>60); Glucose 120 mg/dl (74-100)
--- NOTE | 2021-11-12 10:50 | HMH.OTEV ---
OT Inpatient Evaluation Rehab OT IP Evaluation Start: 11/12/21 09:20 Freq: ONCE Status: Complete Protocol: Document 11/12/21 10:43 [facility] (Rec: 11/12/21 10:50 [facility] [id number]) Rehab OT IP Assessment Subjective History Pt oriented x 3 on arrival. Pt agreeable to engage in therapy evaluation; pt's present and supportive . Pt was admitted via ED on due to weakness and UTI. The following information was copied from history and physical report: 80-year-old female with a history of CHF ( 30% function ), CKD 3, A. fib on eliquis, obesity, presents for evaluation of weakness. Patient states she has had increasing generalized weakness for the last 3 days. Patient states that he was diagnosed with urinary tract infection last Thursday and was transferred from the urgent care center to the ER here concerns that they were giving fluids too quickly for my heart . Patient states she was discharged from the ER and was told that everything was normal . States she has had increasing generalized weakness, malaise unable to get up from the couch she was laying all day. States she has not been eating as well or drinking as well as normal. She took all her regular medications today. Denies chest pain, trouble breathing, cough, fevers (Per Dr. Rajan). Her BUN in the ER was 37 creatinine 2.4 her BNP was almost 17,000 she did receive Lasix 40 mg and 20 mg IV in the emergency department She reports that she is a patient of Dr. Eddy and sees
--- NOTE | 2021-11-12 11:25 | HMH.PTEV ---
Physical Therapy Evaluation Rehab PT IP Evaluation Start: 11/12/21 09:20 Freq: ONCE Status: Active Protocol: Document 11/12/21 10:40 [facility] (Rec: 11/12/21 11:25 [facility] [id number]) Subjective/History History History [address] [facility] with CHF exac and ALONZO. She reports she lives with her and transfers to motorized chair at home at baseline. Non- ambulatory. Subjective Subjective Pt c/o pain in B LE and in low back/buttocks due to pressure injury. Rehab PT IP Eval Objective Appearance Patient Behavior Appropriate Patient Orientation Person,Place,Time Difficulty following instructions none Speech Pattern Clear Ambulation Patient Able to Ambulate No Balance Ability to Arise Able, uses arms to help Sitting Balance Steady, safe Standing Balance Steady, wide stance Dynamic Sitting Balance Ability Fair Dynamic Standing Balance Ability Fair Transfers Bed Transfer Ability Maximum x 2 (75% assist) Chair Transfer Ability Moderate x 2 (50% assist) Sit to Stand Bed Transfer Ability Moderate x 2 (50% assist) Sit to Stand Chair Transfer Ability Moderate x 2 (50% assist) Rehab PT IP prob,goals,plan Problems Date of Evaluation: 11/12/21 PT IP Problems Bed Mobility,Transfers Rehab Potential Rehab Potential Fair Plan PT Intervention Plan Bed Mobility,Transfers,Self care,Therapeutic Exercise PT Plan Frequency BID Duration LOS Discharge Goals Bed Transfer Ability Moderate x 2 (50% assist) Sit to Stand Chair Transfer Ability Minimal x 2 (25% assist) Discharge Plan PT Discharge Plan Pt is most appropriate for rehab placement at this time. If she did return home she would need increased assistance and home health therapy. G -code Required No Eval Complexity Eval Charge Codes 46226 - Moderate Complexity PHYSICIAN CERTIFICATION: I certify the specified therapy services for Janice Laird are required, authorized, and reviewed every 30 days.
[2021-11-12 12:01] VITALS: BMI 32.0
[2021-11-12 15:30] VITALS: BP 110/47; PULSE 51; RESP 18; TEMP 36.4; O2SAT 92
--- NOTE | 2021-11-12 17:01 | PC.NURSE ---
Pt is alert and oriented x4. Lungs are clear, bowel sounds active x4. She reported back pain 10/10 this am. MD notified and tramadol 50mg po (pt home med) reordered and administered with favorable results on reassessment. She was up to the chair most of this shift with assist from PT which she tolerated well. Casper removed per md order. +2/+3 edema noted to BLE. Bruising to ble distal shins, stage 2 to rt lower back, and stage 1 to buttocks.
[2021-11-12 19:35] VITALS: BP 111/54; PULSE 54; RESP 18; TEMP 36.9; O2SAT 89
[2021-11-12 20:00] VITALS: O2SAT 92
[2021-11-13 03:29] VITALS: BP 133/62; PULSE 52; RESP 18; TEMP 37; O2SAT 95
--- NOTE | 2021-11-13 04:00 | PC.NURSE ---
No acute changes this shift. Patient alert and oriented able to make needs know to staff. Has c/o back pain this shift treated with medication per mar with favorable results. Has remained on RA with O2 sats above 90%. Call ennis in reach, will continue to monitor.
[2021-11-13 05:00] VITALS: BMI 32.3
[2021-11-13 07:27] VITALS: BP 132/84; PULSE 55; RESP 18; TEMP 36.8; O2SAT 90
[2021-11-13 07:51] LABS: Basophils # 0.1 K/mm3 (0-0.2); Basophils % 0.4 % (0.1-2.0); Eosinophils # 0.2 K/mm3 (0.0-0.4); Eosinophils % 1.4 % (0.1-12.0); Hemoglobin 15.4 g/dL (12.2-16.2); Lymphocytes # 0.9 K/mm3 (0.7-4.5); Lymphocytes % 8.3 % (10-50); Mean Corpuscular Hemoglobin 33.2 pg (27.0-31.2); Mean Corpuscular Volume 103.6 fl (81-99); Mean Platelet Volume 9.3 fl (7.4-10.4); Monocytes # 0.9 K/mm3 (0.1-1.0); Monocytes % 8.2 % (1.7-9.3); Neutrophils # 8.7 K/mm3 (1.8-7.8); Neutrophils % 81.7 % (37.0-80.0); Platelet Count 222 K/mm3 (142-424); Red Blood Count 4.63 M/mm3 (4.20-5.40); Red Cell Distribution Width 18.3 % (11.5-17.5); White Blood Count 10.7 K/mm3 (4.8-10.8)
[2021-11-13 08:00] VITALS: O2SAT 94
--- NOTE | 2021-11-13 09:11 | HMH.DCSUM ---
General - General Admission date:: 11/11/21 Discharge date: 11/13/21 HPI HPI: 80-year-old female with a history of CHF ( 30% function), CKD 3, A. fib on eliquis, obesity, presents for evaluation of weakness. Patient states she has had increasing generalized weakness for the last 3 days. Patient states that he was diagnosed with urinary tract infection last Thursday and was transferred from the urgent care center to the ER here concerns that they were giving fluids too quickly for my heart . Patient states she was discharged from the ER and was told that everything was normal . States she has had increasing generalized weakness, malaise unable to get up from the couch she was laying all day. States she has not been eating as well or drinking as well as normal. She took all her regular medications today. Denies chest pain, trouble breathing, cough, fevers (Per Dr. Rajan). Her BUN in the ER was 37 creatinine 2.4 her BNP was almost 17,000 she did receive Lasix 40 mg and 20 mg IV in the emergency department She reports that she is a patient of Dr. Eddy and sees cardiology at . She reports she has an ejection fraction of 30% with a longstanding history of congestive heart failure and lymphedema. 11/10/20 cxr: IMPRESSION: Limited inspiration. Atelectatic changes are again identified essentially unchanged since prior examination. No evidence of pulmonary vascular congestion. There is no evidence of pleural effusion. Electronically signed by Magen Gomez MD 80-year-old female patient resting in bed quietly in the emergency department she denies any chest pain or shortness of breath present she reports she does still feel weak but better than yesterday. She denies any nausea and has tolerated breakfast without any difficulties. Current oxygenation status 94% on 2 L per nasal cannula she reports she is not on any oxygen at home. Heart rate has been in the 50s and she reports this is normal for her. Hospital Course Hospital Course: Laboratory Tests 11/11/21 11/11/21 11/11/21 00:16 00:40 00:40 WBC 6.7 RBC 4.05 L Hgb 13.3 Hct 42.6 MCV 105.2 H MCH 32.9 H MCHC 31.3 L RDW 17.5 Plt Count 221 MPV 8.8 Neut % (Auto) 74.8 Lymph % (Auto) 13.1 Dubois % (Auto) 9.4 H Eos % (Auto) 1.5 Baso % (Auto) 1.1 Neut # (Auto) 5.0 Lymph # (Auto) 0.9 Dubois # (Auto) 0.6 Eos # (Auto) 0.1 Baso # (Auto) 0.1 Specimen Source R/r O2 % r/a ABG pH 7.33 L ABG pCO2 50.9 H ABG pO2 51.9 L ABG HCO3 26.5 H ABG Total CO2 28.0 H ABG O2 Saturation 86 L* ABG Base Excess 0.6 Kwame Test Y Sodium 133 L Potassium 5.0 Chloride 94 L Carbon Dioxide 32 H Anion Gap 12.0 BUN 36 H D Creatinine 2.50 H D Estimated Creat Clear 26 Estimated GFR 19 L* Est GFR ( Amer) 22 L D Glucose 101 H Calcium 8.8 Phosphorus 5.0 H Magnesium 1.8 Total Bilirubin 0.9 AST 128 H D ALT 100 H D Alkaline Phosphatase 60 Troponin I 0.02 NT-Pro-B Natriuret Pep 11722 H Total Protein 6.9 Albumin 3.7 Globulin 3.2 Albumin/Globulin Ratio 1.2 SARS-CoV-2 (PCR) Influenza A Untype (PCR) Influenza Type B (PCR) 11/11/21 11/11/21 11/11/21 02:08 03:30 05:47 WBC RBC Hgb Hct MCV MCH MCHC RDW Plt Count MPV Neut % (Auto) Lymph % (Auto) Dubois % (Auto) Eos % (Auto) Baso % (Auto) Neut # (Auto) Lymph # (Auto) Dubois # (Auto) Eos # (Auto) Baso # (Auto) Specimen Source O2 % ABG pH ABG pCO2 ABG pO2 ABG HCO3 ABG Total CO2 ABG O2 Saturation ABG Base Excess Kwmae Test Sodium 134 L Potassium 5.4 H Chloride 97 L Carbon Dioxide 32 H Anion Gap 10.4 BUN 37 H Creatinine 2.40 H Estimated Creat Clear 27 Estimated GFR 19 L* Est GFR ( Amer) 24 L Glucose 82 Calcium 8.4
--- NOTE | 2021-11-13 13:49 | PC.NURSE ---
PT ELEVATES BED PER SELF WHEN STAFF IS NOT IN ROOM. PT WAS EDUCATED THAT LEAVING THE BED ELEVATED IS A SAFETY RISK IF SHE NEEDS TO GET OUT OF BED. PT WAS ALSO EDUCATED THAT SHE SHOULD CALL OUT WHEN SHE NEEDS TO GET UP. BED ALARM IN USE AT THIS TIME AND CALL LIGHT IS WITHIN REACH.
== END 2021-11-13 13:44 | disposition home or self-care (01) | DRG 291 ==
LOC: ER 00:13 → 2ND 03:25
PROVIDERS: Nurse Practitioner Family; Admitting Provider Family Medicine; Emergency Provider Student in an Organized Health Care Education/Training Program; PCP Internal Medicine; Visit Provider Family Medicine
DX: I13.0 Hypertensive heart and chronic kidney disease with heart failure and stage 1 through stage 4 chronic kidney disease, or unspecified chronic kidney disease (principal); J96.01 Acute respiratory failure with hypoxia; I50.23 Acute on chronic systolic (congestive) heart failure; N17.9 Acute kidney failure, unspecified; N39.0 Urinary tract infection, site not specified; N18.30 Chronic kidney disease, stage 3 unspecified; I48.91 Unspecified atrial fibrillation; Z79.01 Long term (current) use of anticoagulants; Z79.02 Long term (current) use of antithrombotics/antiplatelets; E66.9 Obesity, unspecified; Z68.32 Body mass index [BMI] 32.0-32.9, adult; Z20.822 Contact with and (suspected) exposure to COVID-19; I25.5 Ischemic cardiomyopathy
CPT/HCPCS: 36415; 71045; 80048; 80053; 81001; 81003; 82803; 83735; 83880; 84100; 84484; 85025; 87086; 93005; 93306; 96365; 97110; 97162; 97166; 99283; 99284; C9803; J2405; U0003; U0005

== ENCOUNTER → 2021-11-18 12:55 | Outpatient (CLI) | payer MEDICARE, SELFPAY ==
[2021-11-18 13:10] LABS: Reticulocyte % (Auto) 2.7 % (0.9-3.2)
[2021-11-18 13:45] LABS: Blood Urea Nitrogen 21 mg/dl (7-17); Calcium 8.4 mg/dl (8.4-10.2); Carbon Dioxide 35 mmol/L (22.0-30.0); Chloride 94 mmol/L (98-107); Estimated Glomerular Filt Rate 43 ml/min (>60); GFR (African American) 52 ML/MIN (>60); Glucose 81 mg/dl (74-100); Sodium 135 mmol/L (136-145)
[2021-11-18 14:32] LABS: Vitamin B12 453 pg/mL (239-931)
== END ==
PROVIDERS: Visit Provider Internal Medicine
DX: I10 Essential (primary) hypertension (principal); I89.0 Lymphedema, not elsewhere classified; D89.2 Hypergammaglobulinemia, unspecified; G60.9 Hereditary and idiopathic neuropathy, unspecified; R73.01 Impaired fasting glucose
CPT/HCPCS: 80048; 82607; 85044

== ENCOUNTER → 2022-01-29 09:48 | Outpatient (CLI) | payer MEDICARE, SELFPAY ==
[2022-01-29 10:21] LABS: Basophils # 0.1 K/mm3 (0-0.2); Basophils % 1.1 % (0.1-2.0); Eosinophils # 0.2 K/mm3 (0.0-0.4); Hematocrit 47.7 % (37.0-47.0); Hemoglobin 15.1 g/dL (12.2-16.2); Lymphocytes # 1.1 K/mm3 (0.7-4.5); Lymphocytes % 13.4 % (10-50); Mean Corpuscular HGB Conc 31.5 g/dL (31.8-35.4); Mean Corpuscular Volume 104.8 fl (81-99); Mean Platelet Volume 7.8 fl (7.4-10.4); Monocytes # 0.5 K/mm3 (0.1-1.0); Monocytes % 5.7 % (1.7-9.3); Neutrophils # 6.4 K/mm3 (1.8-7.8); Neutrophils % 77.7 % (37.0-80.0); Platelet Count 241 K/mm3 (142-424); Red Blood Count 4.55 M/mm3 (4.20-5.40); Red Cell Distribution Width 14.4 % (11.5-17.5); White Blood Count 8.2 K/mm3 (4.8-10.8)
[2022-01-29 11:07] LABS: Chloride 91 mmol/L (98-107)
[2022-01-29 11:08] LABS: Potassium 4.2 mmoL/L (3.5-5.1); Sodium 136 mmol/L (136-145)
[2022-01-29 11:10] LABS: Alanine Aminotransferase 23 U/L (12-78); Anion Gap 10.2 mEq/L (5-15); Aspartate Amino Transferase 46 U/L (14-36); Blood Urea Nitrogen 38 mg/dl (7-17); Carbon Dioxide 39 mmol/L (22.0-30.0); Estimated Glomerular Filt Rate 29 ml/min (>60); GFR (African American) 35 ML/MIN (>60)
[2022-01-29 11:11] LABS: Albumin Level 3.6 g/dl (3.5-5.0); Albumin/Globulin Ratio 1.2 (1.1-1.8); Alkaline Phosphatase 61 U/L (38-126); Bilirubin,Total 1.1 mg/dl (0.2-1.3); Calcium 8.7 mg/dl (8.4-10.2); Chol/HDL Ratio 4.2 (1-3.5); Cholesterol 205 mg/dl (140-200); Globulin 2.9 g/dL (1.3-3.2); Glucose 97 mg/dl (74-100); HDL Cholesterol 49 mg/dl (40-60); Total Protein,Serum 6.5 g/dl (6.3-8.2); Triglycerides 155 mg/dl (30-150); VLDL Cholesterol 31 mg/dL (0-40)
[2022-01-29 11:22] LABS: Direct LDL Cholesterol 133.01 mg/dL (100-129)
[2022-01-29 12:01] LABS: Hemoglobin A1C 5.3 % (4.0-6.0)
== END ==
PROVIDERS: PCP Internal Medicine; Visit Provider Internal Medicine
DX: I11.0 Hypertensive heart disease with heart failure (principal); I50.22 Chronic systolic (congestive) heart failure; I89.9 Noninfective disorder of lymphatic vessels and lymph nodes, unspecified; I48.0 Paroxysmal atrial fibrillation; R73.01 Impaired fasting glucose; G60.9 Hereditary and idiopathic neuropathy, unspecified
CPT/HCPCS: 36415; 80053; 80061; 83036; 85025

== ENCOUNTER → 2022-04-30 16:57 | Outpatient (CLI) | payer MEDICARE, SELFPAY | PROVIDERS: PCP Internal Medicine; Visit Provider Internal Medicine | DX: N39.0 Urinary tract infection, site not specified (principal); B96.20 Unspecified Escherichia coli [E. coli] as the cause of diseases classified elsewhere | CPT/HCPCS: 87086; 87088; 87186 ==

== ENCOUNTER → 2022-07-25 13:07 | Outpatient (CLI) | payer MEDICARE, SELFPAY ==
[2022-07-25 15:23] LABS: Basophils # 0.1 K/mm3 (0-0.2); Basophils % 0.9 % (0.1-2.0); Eosinophils # 0.2 K/mm3 (0.0-0.4); Eosinophils % 1.8 % (0.1-12.0); Hematocrit 44.2 % (37.0-47.0); Hemoglobin 14.6 g/dL (12.2-16.2); Lymphocytes # 1.3 K/mm3 (0.7-4.5); Lymphocytes % 14.7 % (10-50); Mean Corpuscular HGB Conc 33.1 g/dL (31.8-35.4); Mean Corpuscular Hemoglobin 33.2 pg (27.0-31.2); Mean Corpuscular Volume 100.1 fl (81-99); Mean Platelet Volume 9.2 fl (7.4-10.4); Monocytes # 0.6 K/mm3 (0.1-1.0); Monocytes % 7.1 % (1.7-9.3); Neutrophils # 6.6 K/mm3 (1.8-7.8); Neutrophils % 75.5 % (37.0-80.0); Platelet Count 273 K/mm3 (142-424); Red Blood Count 4.42 M/mm3 (4.20-5.40); Red Cell Distribution Width 13.8 % (11.5-17.5); White Blood Count 8.7 K/mm3 (4.8-10.8)
[2022-07-25 15:53] LABS: Alanine Aminotransferase 12 U/L (12-78); Albumin Level 3.7 g/dl (3.5-5.0); Albumin/Globulin Ratio 1.2 (1.1-1.8); Alkaline Phosphatase 73 U/L (38-126); Anion Gap 18.1 mEq/L (5-15); Aspartate Amino Transferase 29 U/L (14-36); Bilirubin,Total 0.8 mg/dl (0.2-1.3); Blood Urea Nitrogen 25 mg/dl (7-17); Calcium 8.7 mg/dl (8.4-10.2); Carbon Dioxide 38 mmol/L (22.0-30.0); Chloride 85 mmol/L (98-107); Estimated Glomerular Filt Rate 29 ml/min (>60); GFR (African American) 35 ML/MIN (>60); Globulin 3.1 g/dL (1.3-3.2); Glucose 81 mg/dl (74-100); Potassium 4.1 mmoL/L (3.5-5.1); Sodium 137 mmol/L (136-145); Total Protein,Serum 6.8 g/dl (6.3-8.2)
== END ==
PROVIDERS: PCP Internal Medicine; Visit Provider Internal Medicine
DX: I89.0 Lymphedema, not elsewhere classified (principal); I50.22 Chronic systolic (congestive) heart failure; I10 Essential (primary) hypertension; I48.0 Paroxysmal atrial fibrillation; G60.9 Hereditary and idiopathic neuropathy, unspecified
CPT/HCPCS: 80053; 85025

== ENCOUNTER → 2022-11-05 11:26 | Outpatient (CLI) | payer MEDICARE, SELFPAY ==
--- NOTE | 2022-11-05 11:31 | XR_ITS ---
FINAL REPORT CLINICAL HISTORY: COUGH,CHF, green sputum, weakness COMPARISON: November 2021 FINDINGS: Two views of the chest were obtained. There is a left subclavian ICD. Cardiomegaly is noted. The mediastinum is normal. There is elevation of the right hemidiaphragm with right basilar opacity. There is no pneumothorax. The bony thorax is intact. IMPRESSION: Right basilar opacity favors atelectasis over pneumonia. Reviewed, Interpreted and Dictated by Mehran Rodas III, MD Transcribed by Lui Martini Authenticated and [facility]
== END ==
PROVIDERS: PCP Internal Medicine; Visit Provider Internal Medicine
DX: R05.9 Cough, unspecified (principal); I50.22 Chronic systolic (congestive) heart failure
CPT/HCPCS: 71046

== ENCOUNTER → 2023-03-03 12:26 | Outpatient (CLI) | payer MEDICARE, SELFPAY ==
[2023-03-03 12:55] LABS: Basophils % 0.5 % (0.1-2.0); Eosinophils # 0.1 K/mm3 (0.0-0.4); Eosinophils % 1.5 % (0.1-12.0); Hematocrit 44.1 % (37.0-47.0); Hemoglobin 14.3 g/dL (12.2-16.2); Lymphocytes # 1.4 K/mm3 (0.7-4.5); Lymphocytes % 18.7 % (10-50); Mean Corpuscular HGB Conc 32.4 g/dL (31.8-35.4); Mean Corpuscular Hemoglobin 31.8 pg (27.0-31.2); Mean Corpuscular Volume 98.1 fl (81-99); Mean Platelet Volume 8.2 fl (7.4-10.4); Monocytes # 0.5 K/mm3 (0.1-1.0); Monocytes % 6.8 % (1.7-9.3); Neutrophils # 5.3 K/mm3 (1.8-7.8); Neutrophils % 72.5 % (37.0-80.0); Platelet Count 223 K/mm3 (142-424); Red Blood Count 4.49 M/mm3 (4.20-5.40); Red Cell Distribution Width 13.2 % (11.5-17.5); White Blood Count 7.4 K/mm3 (4.8-10.8)
[2023-03-03 13:48] LABS: Alanine Aminotransferase 13 U/L (12-78); Albumin Level 3.9 g/dl (3.5-5.0); Albumin/Globulin Ratio 1.3 (1.1-1.8); Alkaline Phosphatase 47 U/L (38-126); Anion Gap 12.6 mEq/L (5-15); Aspartate Amino Transferase 31 U/L (14-36); Bilirubin,Total 0.9 mg/dl (0.2-1.3); Blood Urea Nitrogen 24 mg/dl (7-17); Calcium 8.7 mg/dl (8.4-10.2); Carbon Dioxide 35 mmol/L (22.0-30.0); Chloride 93 mmol/L (98-107); Chol/HDL Ratio 4.7 (1-3.5); Cholesterol 184 mg/dl (140-200); Estimated Glomerular Filt Rate 31 ml/min (>60); GFR (African American) 37 ML/MIN (>60); Globulin 3.1 g/dL (1.3-3.2); Glucose 80 mg/dl (74-100); HDL Cholesterol 39 mg/dl (40-60); Potassium 3.6 mmoL/L (3.5-5.1); Sodium 137 mmol/L (136-145); Triglycerides 116 mg/dl (30-150); VLDL Cholesterol 23 mg/dL (0-40)
[2023-03-03 13:59] LABS: Direct LDL Cholesterol 117.17 mg/dL (100-129)
[2023-03-03 14:01] LABS: 25-OH Vitamin D, Total 18.3 ng/mL (30-100)
== END ==
PROVIDERS: PCP Internal Medicine; Visit Provider Internal Medicine
DX: I50.22 Chronic systolic (congestive) heart failure (principal); I48.0 Paroxysmal atrial fibrillation; I89.0 Lymphedema, not elsewhere classified; I10 Essential (primary) hypertension; E55.9 Vitamin D deficiency, unspecified; R73.01 Impaired fasting glucose; G60.9 Hereditary and idiopathic neuropathy, unspecified
CPT/HCPCS: 80053; 80061; 82306; 85025

== ENCOUNTER → 2023-06-22 17:05 | Outpatient (CLI) | payer MEDICARE, SELFPAY ==
[2023-06-22 17:49] LABS: Basophils % 0.3 % (0.1-2.0); Eosinophils # 0.1 K/mm3 (0.0-0.4); Eosinophils % 1.1 % (0.1-12.0); Hematocrit 49.1 % (37.0-47.0); Hemoglobin 15.8 g/dL (12.2-16.2); Lymphocytes # 1.1 K/mm3 (0.7-4.5); Lymphocytes % 13.8 % (10-50); Mean Corpuscular HGB Conc 32.2 g/dL (31.8-35.4); Mean Corpuscular Hemoglobin 31.7 pg (27.0-31.2); Mean Corpuscular Volume 98.2 fl (81-99); Mean Platelet Volume 8.4 fl (7.4-10.4); Monocytes # 0.5 K/mm3 (0.1-1.0); Monocytes % 5.8 % (1.7-9.3); Neutrophils # 6.4 K/mm3 (1.8-7.8); Neutrophils % 78.9 % (37.0-80.0); Platelet Count 257 K/mm3 (142-424); Red Cell Distribution Width 12.7 % (11.5-17.5); White Blood Count 8.1 K/mm3 (4.8-10.8)
[2023-06-22 18:05] LABS: Anion Gap 14.2 mEq/L (5-15); Blood Urea Nitrogen 19 mg/dl (7-17); Calcium 9.2 mg/dl (8.4-10.2); Carbon Dioxide 33 mmol/L (22.0-30.0); Chloride 94 mmol/L (98-107); Estimated Glomerular Filt Rate 39 ml/min (>60); GFR (African American) 48 ML/MIN (>60); Glucose 97 mg/dl (74-100); Potassium 4.2 mmoL/L (3.5-5.1); Sodium 137 mmol/L (136-145); Uric Acid 8.3 mg/dl (2.5-6.2)
[2023-06-22 18:39] LABS: Erythrocyte Sedimentation Rate 22 mm/hr (0-30)
== END ==
PROVIDERS: PCP Internal Medicine; Visit Provider Internal Medicine
DX: I10 Essential (primary) hypertension (principal); I50.814 Right heart failure due to left heart failure; M10.371 Gout due to renal impairment, right ankle and foot
CPT/HCPCS: 80048; 84550; 85025; 85651

== ENCOUNTER 2024-02-02 11:37 | Outpatient (CLI) | payer MEDICARE, SELFPAY ==
[2024-02-02 12:20] LABS: Basophils % 0.6 % (0.1-2.0); Eosinophils # 0.1 K/mm3 (0.0-0.4); Eosinophils % 1.7 % (0.1-12.0); Hematocrit 43.6 % (37.0-47.0); Lymphocytes # 1.4 K/mm3 (0.7-4.5); Lymphocytes % 19.5 % (10-50); Mean Corpuscular HGB Conc 34.3 g/dL (31.8-35.4); Mean Corpuscular Hemoglobin 35.5 pg (27.0-31.2); Mean Corpuscular Volume 103.3 fl (81-99); Mean Platelet Volume 8.9 fl (7.4-10.4); Monocytes # 0.5 K/mm3 (0.1-1.0); Monocytes % 6.5 % (1.7-9.3); Neutrophils % 71.7 % (37.0-80.0); Platelet Count 256 K/mm3 (142-424); Red Blood Count 4.22 M/mm3 (4.20-5.40); Red Cell Distribution Width 13.5 % (11.5-17.5)
[2024-02-02 13:24] LABS: Alanine Aminotransferase 14 U/L (12-78); Albumin Level 4.1 g/dl (3.5-5.0); Albumin/Globulin Ratio 1.4 (1.1-1.8); Alkaline Phosphatase 56 U/L (38-126); Anion Gap 14.3 mEq/L (5-15); Aspartate Amino Transferase 38 U/L (14-36); Blood Urea Nitrogen 19 mg/dl (7-17); Calcium 9.5 mg/dl (8.4-10.2); Carbon Dioxide 34 mmol/L (22.0-30.0); Chloride 93 mmol/L (98-107); Estimated Glomerular Filt Rate 43 ml/min (>60); GFR (African American) 52 ML/MIN (>60); Glucose 86 mg/dl (74-100); Potassium 4.3 mmoL/L (3.5-5.1); Sodium 137 mmol/L (136-145); Total Protein,Serum 7.1 g/dl (6.3-8.2)
[2024-02-02 13:28] LABS: Thyroid Stimulating Hormone 3.12 uIU/mL (0.465-4.68)
[2024-02-02 13:47] LABS: Vitamin B12 463 pg/mL (239-931)
== END 2024-02-02 23:59 ==
LOC: LAB.DROPOF 11:37
PROVIDERS: PCP Internal Medicine; Visit Provider Internal Medicine
DX: I11.0 Hypertensive heart disease with heart failure (principal); R73.01 Impaired fasting glucose; G60.9 Hereditary and idiopathic neuropathy, unspecified; I50.22 Chronic systolic (congestive) heart failure; I89.0 Lymphedema, not elsewhere classified; I48.0 Paroxysmal atrial fibrillation; I49.5 Sick sinus syndrome; Z85.42 Personal history of malignant neoplasm of other parts of uterus
CPT/HCPCS: 80053; 82607; 84443; 85025

== ENCOUNTER 2024-06-23 09:12 | Emergency (ER) | payer MEDICARE, SELFPAY ==
[2024-06-23 09:13] VITALS: BP 118/99; PULSE 86; RESP 16; TEMP 36.7; O2SAT 96; BMI 27.4
--- NOTE | 2024-06-23 09:29 | CT_ITS ---
FINAL REPORT TECHNIQUE: Thin-section axial CT with IV contrast supplemented with multi planar reconstruction under CT angiogram protocol was performed of the neck. This study was performed technique to keep radiation doses as low as reasonably achievable, (ALARA). NASCET criteria was utilized during interpretation. CLINICAL HISTORY: possible stroke COMPARISON: None FINDINGS: Aortic arch: Arch shows no significant narrowing. Great vessel origins are widely patent. Right carotid: No significant stenosis is seen at the cervical common or internal carotid artery. There is calcified plaque present in the right carotid bulb. Left carotid: No significant stenosis is seen at the cervical common or internal carotid artery. There is calcified plaque in the left carotid bulb. Vertebrals: Left vertebral artery is dominant. No significant stenosis is present. Note is made of mild patchy nonspecific ground glass opacities in the upper lung peace bilaterally, favor edema over pneumonia. IMPRESSION: No evidence of significant stenosis or major branch occlusion. Mild patchy nonspecific ground glass opacities in the upper lung peace bilaterally, favor edema over pneumonia. Reviewed, Interpreted and Dictated by Mehran Rodas III, MD Transcribed by Julianna Kaplan Authenticated and [facility]
--- NOTE | 2024-06-23 09:29 | CT_ITS ---
FINAL REPORT TECHNIQUE: Thin section axial CT with IV contrast supplemented with multiplanar reconstruction under CT angiogram protocol. 3-D reconstructions were performed. This study was performed with techniques to keep radiation doses as low as reasonably achievable (ALARA). Individualized dose reduction techniques using automated exposure control or adjustment of mA and/or kV according to the patient's size were employed. CLINICAL HISTORY: possible stroke COMPARISON: None FINDINGS: The distal vertebral, basilar and distal internal carotid arteries have an unremarkable appearance. No aneurysm is seen. Major intracranial vessels are patent without significant stenosis. IMPRESSION: No intracranial vascular abnormality is identified. Reviewed, Interpreted and Dictated by Mehran Rodas III, MD Transcribed by Julianna Kaplan Authenticated and [facility]
--- NOTE | 2024-06-23 09:29 | CT_ITS ---
FINAL REPORT CLINICAL HISTORY: possible stroke FINDINGS: Axial images of the head were obtained without contrast. Motion artifact is noted on some of the images. Coronal and sagittal reformatted images were also obtained. This study was performed with techniques to keep radiation doses as low as reasonably achievable (ALARA). Individualized dose reduction techniques using automated exposure control or adjustment of mA and/or kV according to the patient''s size were employed. There is generalized age-appropriate atrophy. Periventricular low-attenuation areas are seen consistent with mild chronic ischemic changes. There is no evidence of intracranial hemorrhage or mass. There is no evidence of acute infarct. There is no evidence of shift of the midline structures. No skull abnormality is seen on the bone window images. Note is made of opacification of multiple left mastoid air cells. IMPRESSION: Atrophy and mild periventricular chronic ischemic changes. No acute intracranial abnormality identified. Authenticated and [facility]
--- NOTE | 2024-06-23 09:29 | PC.NURSE ---
I called radiology to notify them we will be doing stroke alerts scans.
--- NOTE | 2024-06-23 09:30 | ED_ITS ---
Discharge Plan Disposition Chief Complaint: Neuro Symptoms/Deficit Prescriptions Prescriptions: No Action Xarelto 15 mg tablet 15 mg PO DAILY Patient Comments: TAKE ONE TABLET BY MOUTH EVERY DAY IN THE EVENING prednisone 10 mg tablet 10 mg PO DIRECTED Qty: 32 0RF Rx Instructions: see taper instructions: 4 tabs po qam x 5 days; 3 tabs po qam x 2 days; 2 tabs po qam x 2 days; 1 tab po qam x 2 days; then stop gabapentin 600 mg tablet 600 mg PO QID Qty: 120 2RF furosemide 20 mg tablet 20 mg PO DAILY 30 Days Qty: 90 1RF tramadol 50 MG tablet 50 mg PO Q6HP PRN (Reason: Moderate Pain) ondansetron 4 MG tablet,disintegrating 4 mg PO TIDP PRN (Reason: Nausea And Vomiting) Qty: 10 0RF Referrals Follow up/Referrals: Roderick Eddy MD [Primary Care Provider] - See instructions Print Language Print Language: Cameroonian Discharge ED Provider: Tony Luevano General Adult HPI General Chief complaint: Neuro Symptoms/Deficit Stated complaint: slurred speech, drooling Time Seen by Provider: 06/23/24 09:15 Mode of Arrival: Wheelchair Source of Information: Patient and Spouse Limitations: No Limitations Description of Symptoms (Recalled from ER Triage Doc. by RN): reports that at 7am his began to have slurred speech and drooling from her mouth. Patient has no complaints of pain, N/V/D. Patient is alert and oriented with mild slurred speech. History of Present Illness HPI narrative: 83-year-old female on Xarelto for her atrial fibrillation also has a history of hyperlipidemia, CHF, lymphedema, recurrent UTI presents to the ER for concerns of slurred speech and drooling from her mouth that was noted this morning around 7 AM. Patient's last known normal was 10 PM when family went to bed. Patient's got up around 7 AM this morning and began talking to his , when she responded she had severely slurred speech. She was also drooling and had difficulty drinking liquids this morning because they were dribbling out of her mouth. Patient and family both report that her speech is improving. She has no complaints of pain, headache, nausea, vomiting, diarrhea, dizziness, chest pain, difficulty breathing, or symptoms of being ill. Patient does not have a history of diabetes. Family is concerned for possible stroke. They report her speech this morning was virtually incomprehensible due to slurring but that it is improved now. Related Data Home Medications ?Medication ?Instructions ?Recorded ?Confirmed tramadol 50 mg tablet 50 mg PO Q6HP PRN Moderate Pain 11/08/21 06/02/24 rivaroxaban 15 mg tablet (Xarelto) 15 mg PO DAILY 06/02/24 06/02/24 Previous Rx's ?Medication ?Instructions ?Recorded ondansetron 4 mg disintegrating 4 mg PO TIDP PRN Nausea And 11/08/21 tablet Vomiting #10 tabs gabapentin 600 mg tablet 600 mg PO QID Pain #120 tabs 05/10/24 prednisone 10 mg tablet 10 mg PO DIRECTED #32 tabs 06/02/24 furosemide 20 mg tablet 20 mg PO DAILY 30 days #90 tabs 06/16/24 Allergies Allergy/AdvReac Type Severity Reaction Status Date / Time acetaminophen [From Vicodin] Allergy Intermediate Hives Verified 06/02/24 10:43 hydrocodone [From Vicodin] Allergy Intermediate Hives Verified 06/02/24 10:43 metoprolol Allergy Intermediate Hives Verified 06/02/24 10:43 sulfamethoxazole Allergy Unknown Unknown Verified 11/11/21 11:02 [From Bactrim] allergy reaction trimethoprim [From Bactrim] Allergy Unknown Unknown Verified 11/11/21 11:02 allergy reaction PFSH PFSH Disclaimer: The information contained in this section may have been updated after the patient was seen, as this information can be updated by other users. Social History Smoking Status: Never smoker second hand exposure: No alcohol intake: never substance use type: denies use current occupational status: retired Travel in the last 8 weeks: None household members: significant other housing: house current occupational exposures/hazards: No caffeine: No ROS Obtained: Yes All systems reviewed & no additional complaints except as documented Positive ROS per HPI Physical Exam General General appearance: alert and in no apparent distress Head Head exam: atraumatic and normocephalic Eye Eye exam: Present PERRL and EOMI; Absent nystagmus ENT ENT exam: Present mucous membranes moist and other (TM normal bilaterally) Neck Neck exam: Present normal inspection and full ROM Chest Chest inspection: Present symmetric chest wall rise Respiratory Respiratory exam: Present normal lung sounds bilaterally; Absent respiratory distress, wheezes or stridor Cardiovascular Cardiovascular exam: Present regular rate and normal rhythm Abdominal Exam Abdominal exam: Present soft; Absent distention or tenderness Extremities Exam Extremities exam: Present full ROM and edema (Edema in the bilateral distal lower extremities, patient and family report this is at baseline due to her lymphedema); Absent joint swelling Neurological Exam Neurological exam: Present alert and oriented X3; Absent motor sensory deficit Expanded Neurological Exam Patient oriented to: Present person, place and time Speech: Absent fluid speech (Dysarthria, slurred speech) Cranial nerves: Normal: EOM function (II, III, IV, ), facial sensation (V), gag reflex (IX), spinal accessory function (XI) and tongue deviation (XII) and Abnormal Right: facial palsy (VII) (flattening of right nasolabial fold) Cerebellar function: Normal: finger to nose Motor strength - LUE: 5/5 Motor strength - RUE: 5/5 Motor strength - LLE: 5/5 Motor strength - RLE: 5/5 Upper motor neuron exam: Normal: clarissa neglect, pronator drift and sensory extinction Coma scale eye opening: Spontaneous Coma scale motor response: Obeys commands Coma scale verbal response: Oriented Coma scale total: 15 Psychiatric Psychiatric exam: Present normal affect and normal mood Skin Skin exam: Present warm and dry Medical Decision Making Medical Records Medical records reviewed: Yes I reviewed the patient's medical records. MR Comment: In 2019 patient was being evaluated by ENT for an acoustic neuroma with sensorineural hearing loss, MRI of temporal bones was ordered at that time. This was not performed in our system. Leo Inquiry Pt receiving controlled substance: No Vital Signs: 06/23/24 09:13 Temperature 98.0 F Temperature Source Oral Pulse Rate [Radial] 86 Respiratory Rate 16 Blood Pressure [Right Arm] 118/99 H Blood Pressure Mean [Right Arm] 105 Blood Pressure Source [Right Arm] Automatic Cuff Blood Pressure Position [Right Arm] Sitting 02 Sat by Pulse Oximetry 96 Oxygen Delivery Method Room Air Lab Data Lab Results 06/23/24 09:21: WBC 8.1, RBC 4.04 L, Hgb 14.4, Hct 42.0, MCV 103.8 H, MCH 35.7 H , MCHC 34.4, RDW 14.5, Plt Count 182, MPV 8.4, Neut % (Auto) 76.6, Lymph % (Auto) 15.3, Trigg % (Auto) 5.4, Eos % (Auto) 2.0, Baso % (Auto) 0.7, Neut # (Auto) 6.2, Lymph # (Auto) 1.2, Trigg # (Auto) 0.4, Eos # (Auto) 0.2, Baso # (Auto) 0.1, PT 14.2 H, INR 1.30 H, APTT 34.9 H, Sodium 139, Potassium 3.9, Chloride 101, Carbon Dioxide 35 H, Anion Gap 6.9, BUN 14, Creatinine 1.10 H, Estimated Creat Clear 42, Estimated GFR 48 L, Est GFR ( Amer) 58 L, G lucose 112 H, Calcium 8.5, Total Bilirubin 1.0, AST 45 H, ALT 26, Alkaline Phosphatase 34 L, Troponin I 0.05 H, Total Protein 7.6, Albumin 4.1, Globulin 3.5 H, Albumin/Globulin Ratio 1.2, Triglycerides 98, Cholesterol 178, LDL Cholesterol Direct 89.98 L, VLDL Cholesterol 20, HDL Cholesterol 49, C holesterol/HDL Ratio 3.6 H, Plasma/Serum Alcohol < 10 06/23/24 09:21 06/23/24 09:21 Orders (Tests/Meds): ED MEDICATIONS Generic Name Dose Route Start Last Admin Trade Name Freq PRN Reason Stop Dose Admin Aspirin 300 mg 06/23/24 10:15 Aspirin 300mg Suppository RC 06/23/24 10:16 ONCE ONE Lactated Ringer's 500 mls @ 999 mls/hr 06/23/24 10:15 Lactated Ringer's 500ml IV 06/23/24 10:45 .Q31M ONE Sodium Chloride 10 ml 06/23/24 09:29 Sodium Chloride 0.9% 10ml Flush Syringe IV 07/23/24 09:28 NEEDED PRN Maintain IV Site Discontinued Medications Generic Name Dose Route Start Last Admin Trade Name Freq PRN Reason Stop Dose Admin Iopamidol 80 ml 06/23/24 09:49 06/23/24 09:50 Iopamidol-370 (76%);100ml Bottle IV 06/23/24 09:50 80 ml ONCE ONE Administration Sodium Chloride 50 ml 06/23/24 09:49 06/23/24 09:50 0.9 % Sodium Chloride 50 Ml Vial IV 06/23/24 09:50 50 ml ONCE ONE Administration Sodium Chloride 10 ml 06/23/24 09:49 06/23/24 09:50 Sodium Chloride 0.9% 10ml Syr (Rad Only) IV 06/23/24 09:50 10 ml ONCE ONE Administration ORDERS Category Date Time Status CT angio head Stat Cat Scan 06/23/24 09:[address] angio neck Stat Cat Scan 06/23/24 09:[address] head/brain wo con Stat Cat Scan 06/23/24 09:29 Completed Activated Partial Thrombo Time Stat Lab 06/23/24 09:21 Completed Complete Blood Count Auto Diff Stat Lab 06/23/24 09:21 Completed Comprehensive Metabolic Panel Stat Lab 06/23/24 09:21 Completed Drug Screen,Urine Stat Lab 06/23/24 09:29 Ordered Ethyl Alcohol Stat Lab 06/23/24 09:21 Completed Lipid Panel Stat Lab 06/23/24 09:21 Completed Prothrombin Time INR Stat Lab 06/23/24 09:21 Completed Troponin I Q3H Lab 06/23/24 12:30 Ordered Troponin I Q3H Lab 06/23/24 15:30 Ordered Troponin I Stat Lab 06/23/24 09:21 Completed Urinalysis and Microscopic Stat Lab 06/23/24 09:29 Ordered ECG Request Stat Y 06/23/24 09:29 Ordered Medical Decision Narrative: In summary, this 83-year-old female presents to the emergency department today with concerns of slurred speech, drooling, last known normal 10 PM last night. On initial evaluation patient is hemodynamically stable, afebrile, GCS 15, patient does have flattening of the right nasolabial fold and dysarthria. NIH 2 on initial assessment, family and patient reports improvement of symptoms since they were initially noticed. Patient has baseline lymphedema, remainder of exam benign. Differential diagnosis includes but is not limited to hemorrhagic stroke, ischemic stroke, metabolic abnormality, intracranial mass, electrolyte abnormality, urinary tract infection, Vega's palsy, viral syndrome, among others. Patient is receiving stroke alert protocol with emergent CT imaging including angiography in addition to other workup. [id number] glucose on arrival 119 reassuring against hypoglycemia ECG personally interpreted demonstrates atrial flutter, rate 75, right bundle branch block, normal QTc, no STEMI. Labs personally reviewed demonstrate no leukocytosis or anemia, platelets normal, PT/INR and APTT slightly elevated though patient is on anticoagulation, CMP with creatinine 1.10, similar to baseline, no findings of ALONZO, no actionable electrolyte abnormality. Patient does have slight elevation in AST, nonspecific, nonactionable. Additional labs pending. CT head personally interpreted demonstrates questionable abnormality in the right parietal lobe, this does not appear to be hemorrhagic stroke. I do not appreciate large vessel occlusion and CT angiography. At 1003 images were shared 5 his to [facility] and I contacted the transfer center, inventory control coordinator. I spoke with Jazmin Ruiz with the stroke team. After discussion about patient's symptoms, persistent NIH of 2 in the ER, and her reviewing the patient's imaging herself, she excepted the patient for transfer to [facility] for stroke workup. She recommended rectal aspirin and a small fluid bolus, being cognizant of patient's CHF and lymphedema. These have been ordered. Patient will be a direct admission. Awaiting a callback for a bed. On reassessment patient continues to be stable. NIH stable at 2. Patient and family are in agreement with the plan for transfer. Patient continues receiving IV fluids and will be transferred via ALS. She was transferred in stable condition. Critical Care Critical Care Time Critical Care Time: No
--- NOTE | 2024-06-23 09:30 | ECG_ITS ---
APPROVED REPORT Exam: Resting ECG HR:75 bpm ECG Measurements Heart Rate 75 AXES QRSd 138 QRS -50 QT 412 T 122 QTc 440 Conclusion ATRIAL FLUTTER/TACHYCARDIA RIGHT BUNDLE BRANCH BLOCK [120+ ms QRS DURATION, UPRIGHT V1, 40+ ms S IN I/aVL/V4/V5/V6] LEFT ANTERIOR FASCICULAR BLOCK [QRS AXIS <= -45, QR IN I, RS IN II] LEFT VENTRICULAR HYPERTROPHY AND ST-T CHANGE [VOLTAGE CRITERIA PLUS ST/T ABNORMALITY] POSSIBLE SEPTAL MYOCARDIAL INFARCTION , OF INDETERMINATE AGE [30 ms Q WAVE IN V1/V2] No STEMI Electronically signed by : ANDREW SEGURA, 06/23/2024 15:50:57
[2024-06-23 09:38] LABS: Albumin Level 4.1 g/dl (3.5-5.0); Chloride 101 mmol/L (98-107)
[2024-06-23 09:39] LABS: Potassium 3.9 mmoL/L (3.5-5.1); Sodium 139 mmol/L (136-145)
--- NOTE | 2024-06-23 09:40 | PC.NURSE ---
PT TO CT
[2024-06-23 09:41] LABS: Alanine Aminotransferase 26 U/L (12-78); Aspartate Amino Transferase 45 U/L (14-36); Blood Urea Nitrogen 14 mg/dl (7-17); Creatinine Clearance Estimated 42 mL/min (50-200); Estimated Glomerular Filt Rate 48 ml/min (>60); GFR (African American) 58 ML/MIN (>60)
[2024-06-23 09:42] LABS: Albumin/Globulin Ratio 1.2 (1.1-1.8); Alkaline Phosphatase 34 U/L (38-126); Anion Gap 6.9 mEq/L (5-15); Calcium 8.5 mg/dl (8.4-10.2); Carbon Dioxide 35 mmol/L (22.0-30.0); Chol/HDL Ratio 3.6 (1-3.5); Cholesterol 178 mg/dl (140-200); Globulin 3.5 g/dL (1.3-3.2); Glucose 112 mg/dl (74-100); HDL Cholesterol 49 mg/dl (40-60); Total Protein,Serum 7.6 g/dl (6.3-8.2); Triglycerides 98 mg/dl (30-150); VLDL Cholesterol 20 mg/dL (0-40)
[2024-06-23 09:44] LABS: Basophils # 0.1 K/mm3 (0-0.2); Basophils % 0.7 % (0.1-2.0); Eosinophils # 0.2 K/mm3 (0.0-0.4); Hemoglobin 14.4 g/dL (12.2-16.2); Lymphocytes # 1.2 K/mm3 (0.7-4.5); Lymphocytes % 15.3 % (10-50); Mean Corpuscular HGB Conc 34.4 g/dL (31.8-35.4); Mean Corpuscular Hemoglobin 35.7 pg (27.0-31.2); Mean Corpuscular Volume 103.8 fl (81-99); Mean Platelet Volume 8.4 fl (7.4-10.4); Monocytes # 0.4 K/mm3 (0.1-1.0); Monocytes % 5.4 % (1.7-9.3); Neutrophils # 6.2 K/mm3 (1.8-7.8); Neutrophils % 76.6 % (37.0-80.0); Platelet Count 182 K/mm3 (142-424); Red Blood Count 4.04 M/mm3 (4.20-5.40); Red Cell Distribution Width 14.5 % (11.5-17.5); White Blood Count 8.1 K/mm3 (4.8-10.8)
[2024-06-23] MEDS: IOPAMIDOL-370 (76%);100ML BOTTLE 80 ML IV (09:50)
[2024-06-23] MEDS: 0.9 % SODIUM CHLORIDE 50 ML VIAL IV (09:50)
[2024-06-23] MEDS: SODIUM CHLORIDE 0.9% 10ML SYR (RAD ONLY) 10 ML IV (09:50)
[2024-06-23 09:51] LABS: Activated Partial Thrombo Time 34.9 seconds (22.8-30.6); Prothrombin Time 14.2 seconds (10.1-12.5)
[2024-06-23 09:53] LABS: Direct LDL Cholesterol 89.98 mg/dL (100-129)
[2024-06-23 09:54] LABS: Ethyl Alcohol < 10 mg/dl (0-10)
--- NOTE | 2024-06-23 09:57 | PC.NURSE ---
PT RETURNED FROM CT
[2024-06-23 09:58] LABS: Troponin I 0.05 ng/ml (0.00-0.034)
--- NOTE | 2024-06-23 10:17 | PC.NURSE ---
DR SEGURA AT BEDSIDE TO UPDATE PT AND FAMILY
--- NOTE | 2024-06-23 10:19 | PC.NURSE ---
I called pharmacy to request the rectal ASA.
[2024-06-23] MEDS: ASPIRIN 300MG SUPPOSITORY 300 MG RC (10:28)
[2024-06-23] MEDS: RINGERS SOLUTION,LACTATED 500 ML 999 ML IV (10:29)
--- NOTE | 2024-06-23 10:29 | PC.NURSE ---
Report called to OSEI Haro with [facility]. Patient will go to [facility] [address] [facility] [address] [facility].
[2024-06-23 10:57] VITALS: BP 118/99; PULSE 86; RESP 16; TEMP 36.7; O2SAT 96
[2024-06-23 11:34] LABS: Opiate Screen,Urine Negative ng/ml (<300); Phencyclidine Screen,Urine Negative ng/ml (<25)
[2024-06-23 11:37] LABS: Amphetamine/Metha Screen,Urine Negative ng/ml (<1000); Benzodiazepines Screen,Urine Negative ng/ml (<200)
[2024-06-23 11:38] LABS: Barbiturates Screen,Urine Negative ng/ml (<200)
[2024-06-23 11:39] LABS: Cannabinoid Screen,Urine Negative ng/ml (<50); Cocaine Screen,Urine Negative ng/ml (<300)
[2024-06-23 11:40] LABS: Methadone Screen,Urine Negative ng/ml (<300)
== END 2024-06-23 10:58 | disposition short-term general hospital (02) ==
PROVIDERS: Emergency Provider Emergency Medicine; PCP Internal Medicine
DX: R47.1 Dysarthria and anarthria (principal); R29.810 Facial weakness; I11.0 Hypertensive heart disease with heart failure; I50.9 Heart failure, unspecified; E78.5 Hyperlipidemia, unspecified; I48.0 Paroxysmal atrial fibrillation; Z79.01 Long term (current) use of anticoagulants
CPT/HCPCS: 70450; 70496; 70498; 80053; 80061; 80307; 80320; 84484; 85025; 85610; 85730; 93005; 99285; G0480; J7120; Q9967

== ENCOUNTER 2024-11-11 11:29 | Observation (INO) | payer MEDICARE, SELFPAY ==
[2024-11-11] VITALS (9 sets, daily range): BP systolic 109–132; BP diastolic 58–71; PULSE 60–83; RESP 15–17; TEMP 36.4–37.2; O2SAT 89–100; BMI 25.7; BMI 24.5
--- NOTE | 2024-11-11 11:44 | PC.NURSE ---
Placed on 2LNC for 89% RA
[2024-11-11 12:09] LABS: Basophils % 0.7 % (0.1-2.0); Eosinophils % 0.2 % (0.1-12.0); Hemoglobin 14.9 g/dL (12.2-16.2); Lymphocytes # 0.9 K/mm3 (0.7-4.5); Lymphocytes % 16.8 % (10-50); Mean Corpuscular HGB Conc 33.9 g/dL (31.8-35.4); Mean Corpuscular Hemoglobin 31.2 pg (27.0-31.2); Mean Corpuscular Volume 92.1 fl (81-99); Mean Platelet Volume 11.2 fl (7.4-10.4); Monocytes # 0.6 K/mm3 (0.1-1.0); Monocytes % 10.3 % (1.7-9.3); Neutrophils # 3.9 K/mm3 (1.8-7.8); Neutrophils % 71.6 % (37.0-80.0); Platelet Count 131 K/mm3 (142-424); Red Blood Count 4.78 M/mm3 (4.20-5.40); Red Cell Distribution Width 13.2 % (11.5-17.5); White Blood Count 5.4 K/mm3 (4.8-10.8)
--- NOTE | 2024-11-11 12:14 | XR_ITS ---
FINAL REPORT CLINICAL HISTORY: Cough, shortness of breath COMPARISON: 11/05/2022 FINDINGS: A portable view of the chest was obtained. No change in left AICD. The heart size is stable. There are persistent low lung volumes with worsening bibasilar atelectasis. There is no pleural effusion or pneumothorax. IMPRESSION: Worsening bibasilar atelectasis. Reviewed, Interpreted and Dictated by Millie Hdz MD Transcribed by Gala Painter Authenticated and [facility]
--- NOTE | 2024-11-11 12:16 | ED_ITS ---
<Statement entered by Zoya Plummer MD - 11/12/24 16:07> I was consulted by the DAVID, and we discussed the complexity of the problems being addressed. I approved the treatment and management plan for this patient's care in the emergency department, thus performing a substantive portion of the medical decision making. Zoya Plummer MD, DEAN, FACEP Discharge Plan Disposition Patient Disposition: Admitted Condition: Serious Clinical Impressions Clinical Impression: Acute exacerbation of CHF (congestive heart failure) Qualifiers: Heart failure type: unspecified Qualified Code(s): I50.9 - Heart failure, unspecified Discharge ED Provider: Zoya Plummer General Adult HPI General Chief complaint: Nausea/Vomiting/Diarrhea Stated complaint: nausea and vomiting Time Seen by Provider: 11/11/24 12:03 Mode of Arrival: EMS Source of Information: Patient and EMS Limitations: No Limitations Description of Symptoms (Recalled from ER Triage Doc. by RN): N/V X3 days, unable to have food, diarrhea began last pm History of Present Illness HPI narrative: Patient presents for evaluation of nonproductive cough, nausea vomiting with the prolonged coughing and report of loose stool that began yesterday. Patient does have a history of CHF systolic, ischemic cardiomyopathy, hyperlipidemia, atrial fibrillation, chronic kidney disease, and history of previous stroke. Patient reports that her symptoms have been going on for 3 days and she has a terrible cough and cannot bring anything up but feels like she has mucus deep in her chest. She denies any fever chills hemoptysis hematochezia melena hematemesis hematuria. Related Data Home Medications ?Medication ?Instructions ?Recorded ?Confirmed rivaroxaban 15 mg tablet (Xarelto) 15 mg PO QPMWITHMEAL 06/02/24 11/11/24 aspirin 81 mg tablet,delayed 81 mg PO DAILY 06/28/24 11/11/24 release rosuvastatin 10 mg tablet 10 mg PO HS 07/28/24 11/11/24 amoxicillin 500 mg capsule 500 mg PO BID 11/11/24 11/11/24 prochlorperazine maleate 10 mg 10 mg PO Q6HP PRN nausea and 11/11/24 11/11/24 tablet (Compazine) vomiting Previous Rx's ?Medication ?Instructions ?Recorded furosemide 20 mg tablet 20 mg PO DAILY #90 tabs 09/09/24 triamterene 37.5 1 cap PO DAILY #90 caps 09/09/24 mg-hydrochlorothiazide 25 mg capsule Allergies Allergy/AdvReac Type Severity Reaction Status Date / Time acetaminophen (From Vicodin) Allergy Intermediate Hives Verified 10/03/24 11:14 hydrocodone (From Vicodin) Allergy Intermediate Hives Verified 10/03/24 11:14 metoprolol Allergy Intermediate Hives Verified 10/03/24 11:14 sulfamethoxazole (From Allergy Unknown Unknown Verified 10/03/24 11:14 Bactrim) allergy reaction trimethoprim (From Bactrim) Allergy Unknown Unknown Verified 10/03/24 11:14 allergy reaction atorvastatin (From Lipitor) AdvReac Cramping Verified 10/03/24 11:14 of the Muscles [facility] Disclaimer: The information contained in this section may have been updated after the patient was seen, as this information can be updated by other users. Social History (Updated 11/11/24 @ 17:57 by Steven Spaulding RN) Smoking Status: Never smoker second hand exposure: No alcohol intake: never substance use type: denies use current occupational status: retired Travel in the last 8 weeks: None household members: significant other housing: house current occupational exposures/hazards: No caffeine: No Have you lived/traveled outside [place] in past 30 days?: No Contact w/someone who lives/traveled outside US past 30 days?: No Exposure to someone with infectious disease in past 14 days?: No Do you have a fever (greater than 100.4 F or 38 C)?: No Have you tested positive for COVID-19: No Exposed to someone with COVID-19 in past 14 days?: No Do you have a sore throat?: No Do you have a cough?: No Do you have any weakness?: No Do you have any diarrhea?: No Are you experiencing any unusual bleeding?: No Do you have any muscle aches/pain?: No Do you have any abdominal pain?: No Are you experiencing loss of taste or smell?: No Other Medical History Have you received the Flu Vaccine for this season: No Have you received the Pneumonia Vaccine: No ROS Obtained: Yes Systems reviewed as appropriate & no additional complaints except as documented Physical Exam General General appearance: alert and in no apparent distress Respiratory Respiratory exam: Absent normal lung sounds bilaterally (Patient has bibasilar Rales but no increased work of breathing or accessory muscle use.) Cardiovascular Cardiovascular exam: Present regular rate Neurological Exam Neurological exam: Present alert and oriented X3 Medical Decision Making Medical Records Medical records reviewed: Yes I reviewed the patient's medical records. Screening: Per USPSTF and CDC recommendations, given the prevalence of disease in our region, it is our hospital?s policy to screen for HIV and viral Hepatitis for all patients aged 18 and over and those with ongoing risk factors. Leo Inquiry Pt receiving controlled substance: No Vital Signs: 11/11/24 11:31 11/11/24 12:47 11/11/24 13:00 Temperature 98.9 F Temperature Source Oral Pulse Rate 83 80 Respiratory Rate 16 Blood Pressure 126/69 124/59 L Blood Pressure [Right Arm] 109/65 L Blood Pressure Mean [Right Arm] 79 Blood Pressure Source Blood Pressure Source [Right Arm] Automatic Cuff Blood Pressure Position [Right Arm] Supine 02 Sat by Pulse Oximetry 89 L 98 99 Oxygen Delivery Method Room Air Oxygen Flow Rate (LPM) 11/11/24 13:30 11/11/24 14:00 11/11/24 14:30 Temperature Temperature Source Pulse Rate 60 77 77 Respiratory Rate Blood Pressure 122/59 L 120/59 L 114/58 L Blood Pressure [Right Arm] Blood Pressure Mean [Right Arm] Blood Pressure Source Blood Pressure Source [Right Arm] Blood Pressure Position [Right Arm] 02 Sat by Pulse Oximetry 100 98 99 Oxygen Delivery Method Room Air Oxygen Flow Rate (LPM) 11/11/24 15:39 Temperature 97.8 F Temperature Source Oral Pulse Rate 75 Respiratory Rate 17 Blood Pressure 121/67 Blood Pressure [Right Arm] Blood Pressure Mean [Right Arm] Blood Pressure Source Automatic Cuff Blood Pressure Source [Right Arm] Blood Pressure Position [Right Arm] 02 Sat by Pulse Oximetry Oxygen Delivery Method Nasal Cannula Oxygen Flow Rate (LPM) 2 Lab Data Lab results reviewed: Yes I reviewed the patient's lab results. Lab Results 11/11/24 12:00: WBC 5.4, RBC 4.78, Hgb 14.9, Hct 44.0, MCV 92.1, MCH 31.2, MCHC 33.9, RDW 13.2, Plt Count 131 L, MPV 11.2 H, Neut % (Auto) 71.6, Lymph % (Auto) 16.8, [place] % (Auto) 10.3 H, Eos % (Auto) 0.2, Baso % (Auto) 0.7, Neut # (Auto) 3.9, Lymph # (Auto) 0.9, [place] # (Auto) 0.6, Eos # (Auto) 0.0, Baso # (Auto) 0.0 11/11/24 12:40: PT 13.0 H, INR 1.18 H, APTT 33.0 H, Sodium 131 L, Potassium 4.1, Chloride 89 L, Carbon Dioxide 31 H, Anion Gap 15.1 H, BUN 24 H, Creatinine 1.20 H, Estimated Creat Clear 39, Estimated GFR 43 L, Est GFR ( Amer) 52 L, Glucose 100, Calcium 8.5, Total Bilirubin 1.2, AST 57 H, ALT 23, Alkaline Phosphatase 32 L, Troponin I 0.06 H, NT-Pro-B Natriuret Pep 32125 H, Total Protein 7.3, Albumin 4.1, Globulin 3.2, Albumin/Globulin Ratio 1.3, Lipase 264 11/11/24 15:30: Lactate 1.2, Troponin I 0.07 H 11/11/24 12:00 11/11/24 12:40 Orders (Tests/Meds): ED MEDICATIONS Generic Name Dose Route Start Last Admin Trade Name Freq PRN Reason Stop Dose Admin Acetaminophen 650 mg 11/11/24 17:45 Acetaminophen 325mg Tab PO 12/11/24 17:44 Q4HP PRN Fever or Mild Pain (1-3) Enoxaparin Sodium 40 mg 11/12/24 09:00 Enoxaparin 40mg/0.4ml Syringe SUBCUT 12/12/24 08:59 DAILY IZABEL Furosemide 40 mg 11/12/24 09:00 Furosemide 40mg/4ml Vial IV 12/12/24 08:59 BIDL IZABEL Ondansetron HCl 4 mg 11/11/24 17:45 Ondansetron 4mg/2ml Vial IV 12/11/24 17:44 Q8HP PRN Nausea Sodium Chloride 10 ml 11/11/24 11:44 Sodium Chloride 0.9% 10ml Flush Syringe IV 12/11/24 11:43 NEEDED PRN Maintain IV Site Sodium Chloride 3 ml 11/11/24 12:30 Sodium Chloride 3% 15ml Neb IH 12/11/24 12:29 ONCE PRN INDUCE SPUTUM COLLECTION Discontinued Medications Generic Name Dose Route Start Last Admin Trade Name Freq PRN Reason Stop Dose Admin Albuterol/Ipratropium 3 ml 11/11/24 12:30 11/11/24 14:46 Ipratropium/Albuterol 3 Ml Neb IH 11/11/24 12:31 3 ml ONCE ONE Administration Dexamethasone Sodium Phosphate 10 mg 11/11/24 12:30 11/11/24 14:47 Dexamethasone 4mg/Ml 5ml Mdv IV 11/11/24 12:31 10 mg ONCE ONE Administration Furosemide 80 mg 11/11/24 14:45 11/11/24 15:06 Furosemide 40mg/4ml Vial IV 11/11/24 14:46 80 mg ONCE ONE Administration Lactated Ringer's 500 mls @ 999 mls/hr 11/11/24 11:44 11/11/24 13:00 Lactated Ringer's 500ml IV 11/11/24 12:14 999 mls/hr .Q31M ONE Administration Ondansetron HCl 4 mg 11/11/24 11:44 11/11/24 13:00 Ondansetron 4mg/2ml Vial IV 11/11/24 11:45 4 mg ONCE ONE Administration ORDERS Category Date Time Status Chest XR -- portable [XR chest portable] Stat Exams 11/11/24 12:14 Completed Activated Partial Thrombo Time Stat Lab 11/11/24 12:40 Completed BNP [NT Pro Brain Natriuretic Pep.] Stat Lab 11/11/24 12:40 Completed Complete Blood Count Auto Diff Stat Lab 11/11/24 12:00 Completed Comprehensive Metabolic Panel Stat Lab 11/11/24 12:40 Completed HIV (1&2) Antibody Rapid Stat Lab 11/11/24 11:42 Ordered Hep C Ab with Reflex to RNA Stat Lab 11/11/24 11:42 Ordered Lactic Acid Stat Lab 11/11/24 15:30 Completed Lipase Stat Lab 11/11/24 12:40 Completed Mini Respiratory Panel Stat Lab 11/11/24 15:32 Received Prothrombin Time INR Stat Lab 11/11/24 12:40 Completed Troponin I Q3H Lab 11/11/24 15:30 Completed Troponin I Q3H Lab 11/11/24 18:00 Ordered Troponin I Stat Lab 11/11/24 12:40 Completed Sputum Culture & Gram Stain Stat Micro 11/11/24 12:30 Ordered HEART Score History (anamnesis): Slightly suspicious ECG: Non-specific disturbance Age: >65 years Risk factors: Atherosclerosis history Troponin: 1-3x normal limit HEART Score: 6 Medical Decision Narrative: In summary patient is a 83-year-old female who presents to the emergency department for evaluation of nonproductive cough nausea vomiting and loose stool. Patient is hemodynamically stable with a blood pressure 109/65 heart rate 83 respiratory rate 16 satting at 89% on room air upon arrival, afebrile at 90.9. Physical exam is remarkable for bibasilar Rales without increased work of breathing, wet productive cough of white frothy sputum. Abdomen soft without rebound or guarding or rigidity with normal bowel sounds and nontender. Differential diagnosis includes viral or bacterial infection versus ACS versus CHF etc. Initial workup will be conducted with hematologic labs plain film chest x-ray urinalysis.. Initial interventions include Decadron DuoNeb Zofran. Initial workup reviewed by me shows a normal white count with no shift, INR is 1.18, CMP significant for sodium of 131 chloride of 89 CO2 of 31 gap of 15.1 BUN of 24 creatinine 1.2 with a GFR of 43, AST is 57 ALT is 32 initial troponin is 0.07 and her NT proBNP is elevated at 12,400 lipase 264. My informal interpretation of her plain film chest x-ray shows bibasilar atelectasis versus pleural effusions. Upon repeat evaluation patient still requiring supplemental O2 however her sat is 99% on 2 L. Given this I had interact discussion with hospital medicine regarding patient management and she will be admitted for further evaluation care of acute on chronic heart failure. Critical Care Critical Care Time Critical Care Time: No
--- NOTE | 2024-11-11 12:46 | ECG_ITS ---
APPROVED REPORT Exam: Resting ECG HR:85 bpm ECG Measurements Heart Rate 85 AXES AK 180 P 73 QRSd 139 QRS -59 QT 457 T 99 QTc 499 Conclusion SINUS RHYTHM WITH OCCASIONAL VENTRICULAR PREMATURE COMPLEXES RIGHT BUNDLE BRANCH BLOCK [120+ ms QRS DURATION, UPRIGHT V1, 40+ ms S IN I/aVL/V4/V5/V6] LEFT ANTERIOR FASCICULAR BLOCK [QRS AXIS <= -45, QR IN I, RS IN II] POSSIBLE ANTERIOR MYOCARDIAL INFARCTION , OF INDETERMINATE AGE [30 ms Q WAVE IN V3/V4, OR R < 0.2 mV IN V4] MODERATE T-WAVE ABNORMALITY, CONSIDER LATERAL ISCHEMIA [-0.1+ mV T-WAVE IN I/aVL/V5/V6] ABNORMAL ECG UNCONFIRMED REPORT Electronically signed by : Magen Plummer, 11/11/2024 16:01:35
[2024-11-11 12:53] LABS: Albumin Level 4.1 g/dl (3.5-5.0); Chloride 89 mmol/L (98-107); Sodium 131 mmol/L (136-145)
[2024-11-11 12:54] LABS: Potassium 4.1 mmoL/L (3.5-5.1)
[2024-11-11 12:56] LABS: Alanine Aminotransferase 23 U/L (12-78); Albumin/Globulin Ratio 1.3 (1.1-1.8); Alkaline Phosphatase 32 U/L (38-126); Anion Gap 15.1 mEq/L (5-15); Aspartate Amino Transferase 57 U/L (14-36); Bilirubin,Total 1.2 mg/dl (0.2-1.3); Blood Urea Nitrogen 24 mg/dl (7-17); Carbon Dioxide 31 mmol/L (22.0-30.0); Creatinine Clearance Estimated 39 mL/min (50-200); Estimated Glomerular Filt Rate 43 ml/min (>60); GFR (African American) 52 ML/MIN (>60); Globulin 3.2 g/dL (1.3-3.2); Total Protein,Serum 7.3 g/dl (6.3-8.2)
[2024-11-11 12:57] LABS: Calcium 8.5 mg/dl (8.4-10.2); Glucose 100 mg/dl (74-100)
[2024-11-11 12:59] LABS: INR 1.18 (0.9-1.1)
[2024-11-11] MEDS: RINGERS SOLUTION,LACTATED 500 ML 999 ML IV (13:00)
[2024-11-11] MEDS: ONDANSETRON 4MG/2ML VIAL 4 MG IV (13:00)
[2024-11-11 14:04] LABS: Lipase 264 U/L (23-300)
--- NOTE | 2024-11-11 14:30 | PC.NURSE ---
pt. laying in the bed. No needs at this time. Call light in reach
[2024-11-11 14:37] LABS: NT Pro Brain Natriuretic Pep. 12400 pg/mL (0-450)
[2024-11-11] MEDS: IPRATROPIUM/ALBUTEROL 3 ML NEB IH (14:46)
[2024-11-11] MEDS: DEXAMETHASONE 4MG/ML 5ML MDV 10 MG IV (14:47)
[2024-11-11 15:03] LABS: Troponin I 0.06 ng/ml (0.00-0.034)
[2024-11-11] MEDS: FUROSEMIDE 40MG/4ML VIAL 80 MG IV (15:06)
--- NOTE | 2024-11-11 15:24 | HMH.PHAINT1 ---
Pharmacy Intervention Comments: MEDICATION RECONCILIATION COMPLETED ON PATIENT USING EXTERNAL FILL HISTORY FROM PHARMACY. -MYA LIMA, RENATOD
[2024-11-11 15:54] LABS: Coronavirus 19, PCR Not Detected (NotDetected); Human Rhinovirus Not Detected (NotDetected); Influenza B, PCR Not Detected (NotDetected); Respiratory Syncytial Virus Not Detected (NotDetected)
--- NOTE | 2024-11-11 15:57 | PC.NURSE ---
Addendum entered by Camila Urban 11/11/24 16:02: arrived by sweetie Original Note: arrived by w/c from ED
[2024-11-11 15:59] LABS: Lactic Acid 1.2 mmol/L (0.7-2.1)
[2024-11-11 16:12] LABS: Troponin I 0.07 ng/ml (0.00-0.034)
--- NOTE | 2024-11-11 17:50 | P.HP_ITS ---
History of Present Illness *Admission Date: 11/11/24 *Reason for visit:: HFrEF exacerbation *History of present illness: aJnice Laird is a 83-year-old female with a medical history significant for HFrEF (LVEF 30% 11/2021), A-fib s/p PPM/AICD on Xarelto, hypertension who presents for worsening shortness of breath. She states she has had flulike symptoms for the past few days and developed shortness of breath which has worsened, including productive cough. No chest pain, abdominal pain, nausea/vomiting/diarrhea. Workup in the ED significant for AGAP 15.1, troponin 0.06-0.07, BNP 12,400, CXR suggesting pulmonary edema, bibasilar opacities. Requiring 2 L or appropriate saturations, new requirement. Case discussed with ED provider and decision was made to admit patient for acute hypoxic respiratory failure secondary to acute HFrEF and suspected community-acquired pneumonia. [facility] Disclaimer: The information contained in this section may have been updated after the elan ent was seen, as this information can be updated by other users. Social History (Updated 10/03/24 @ 17:06 by Roderick Eddy MD) Smoking Status: Never smoker second hand exposure: No alcohol intake: never substance use type: denies use current occupational status: retired Travel in the last 8 weeks: None household members: significant other housing: house current occupational exposures/hazards: No caffeine: No Other Medical History Have you received the Flu Vaccine for this season: No Have you received the Pneumonia Vaccine: No Meds Home Medications and Allergies Home Medications ?Medication ?Instructions ?Recorded ?Confirmed ?Type rivaroxaban 15 mg tablet (Xarelto) 15 mg PO QPMWITHMEAL 06/02/24 11/11/24 History aspirin 81 mg tablet,delayed 81 mg PO DAILY 06/28/24 11/11/24 History release rosuvastatin 10 mg tablet 10 mg PO HS 07/28/24 11/11/24 History furosemide 20 mg tablet 20 mg PO DAILY #90 tabs 09/09/24 11/11/24 Rx triamterene 37.5 1 cap PO DAILY #90 caps 09/09/24 11/11/24 Rx mg-hydrochlorothiazide 25 mg capsule amoxicillin 500 mg capsule 500 mg PO BID 11/11/24 11/11/24 History prochlorperazine maleate 10 mg 10 mg PO Q6HP PRN nausea and 11/11/24 11/11/24 History tablet (Compazine) vomiting New Prescriptions to Start Prescriptions: Allergies Allergy/AdvReac Type Severity Reaction Status Date / Time acetaminophen (From Vicodin) Allergy Intermediate Hives Verified 10/03/24 11:14 hydrocodone (From Vicodin) Allergy Intermediate Hives Verified 10/03/24 11:14 metoprolol Allergy Intermediate Hives Verified 10/03/24 11:14 sulfamethoxazole (From Allergy Unknown Unknown Verified 10/03/24 11:14 Bactrim) allergy reaction trimethoprim (From Bactrim) Allergy Unknown Unknown Verified 10/03/24 11:14 allergy reaction atorvastatin (From Lipitor) AdvReac Cramping Verified 10/03/24 11:14 of the Muscles Exam Data for Last 24 hours Vital signs and Labs for Last 24 Hours: Temp Pulse Resp BP Pulse Ox O2 Del Method O2 Flow Rate 97.5 F L 77 15 132/71 100 Nasal Cannula 2 11/11/24 16:00 11/11/24 16:00 11/11/24 16:00 11/11/24 16:00 11/11/24 16:00 11/11/24 16:38 11/11/24 16:38 Laboratory Results - last 24 hr 11/11/24 12:00: WBC 5.4, RBC 4.78, Hgb 14.9, Hct 44.0, MCV 92.1, MCH 31.2, MCHC 33.9, RDW 13.2, Plt Count 131 L, MPV 11.2 H, Neut % (Auto) 71.6, Lymph % (Auto) 16.8, [place] % (Auto) 10.3 H, Eos % (Auto) 0.2, Baso % (Auto) 0.7, Neut # (Auto) 3.9, Lymph # (Auto) 0.9, [place] # (Auto) 0.6, Eos # (Auto) 0.0, Baso # (Auto) 0.0 11/11/24 12:40: PT 13.0 H, INR 1.18 H, APTT 33.0 H, Sodium 131 L, Potassium 4.1, Chloride 89 L, Carbon Dioxide 31 H, Anion Gap 15.1 H, BUN 24 H, Creatinine 1.20 H, Estimated Creat Clear 39, Estimated GFR 43 L, Est GFR ( Amer) 52 L, Glucose 100, Calcium 8.5, Total Bilirubin 1.2, AST 57 H, ALT 23, Alkaline Phosphatase 32 L, Troponin I 0.06 H, NT-Pro-B Natriuret Pep 45735 H, Total Protein 7.3, Albumin 4.1, Globulin 3.2, Albumin/Globulin Ratio 1.3, Lipase 264 11/11/24 15:30: Lactate 1.2, Troponin I 0.07 H I & O for Last 24 hours: Intake & Output 11/08/24 11/09/24 11/10/24 11/11/24 23:59 23:59 23:59 23:59 Weight 62.823 kg Constitutional Constitutional: no acute distress *Routine HEENT Exam Head: Present normocephalic Eye: Present EOMI and PERRL ENT: Present mucous membranes moist *Routine Neck Exam Neck: Present supple; Absent lymphadenopathy *Routine Respiratory Exam Respiratory: Present CTA bilaterally *Routine Cardiovascular Exam Cardiovascular: Present RRR *Routine Abdominal Exam Abdominal: Present soft and normoactive bowel sounds; Absent tenderness *Routine Rectal Exam Rectal:: deferred *Routine Genitalia Exam Genitalia:: deferred *Routine Extremities Exam Extremities: Absent cyanosis, clubbing or edema Comments: Lower extremity lymphedema. *Routine Skin Exam Skin: Present warm; Absent rash *Routine Neurological Exam Neurological: Present alert and oriented X3 Assessment and Plan *Assessment and plan (1) Acute exacerbation of CHF (congestive heart failure): Status: Acute Qualifiers: Heart failure type: unspecified Qualified Code(s): I50.9 - Heart failure, unspecified Category: Medical Code(s): I50.9 - Heart failure, unspecified Plan Janice Laird is a 83-year-old female with a medical history significant for HFrEF (LVEF 30% 11/2021), A-fib s/p PPM/AICD on Xarelto, hypertension who presents for worsening shortness of breath. She states she has had flulike symptoms for the past few days and developed shortness of breath which has worsened, including productive cough. No chest pain, abdominal pain, nausea/vomiting/diarrhea. Workup in the ED significant for AGAP 15.1, troponin 0.06-0.07, BNP 12,400, CXR suggesting pulmonary edema, bibasilar opacities. Requiring 2 L or appropriate saturations, new requirement. Case discussed with ED provider and decision was made to admit patient for acute hypoxic respiratory failure secondary to acute HFrEF and suspected community-acquired pneumonia. #Acute hypoxic respiratory failure ? Likely secondary to HFrEF exacerbation and community-acquired pneumonia. ? Follow-up respiratory panel. #Acute HFrEF exacerbation ? ECHO [place] 2021 revealed LVEF 30%, no records since then. ? BNP 12,400, CXR suggesting pulmonary edema. ? IV Lasix 40 mg twice daily. Lasix 80 mg given in the ED. ? Follow urine output, renal function, electrolytes. #Suspected community-acquired pneumonia ? Bibasilar opacities on CXR. ? IV ceftriaxone, azithromycin day 1. #A-fib s/p PPM/AICD on Xarelto ?Currently rate controlled. ? Resume home Xarelto. #Hypertension ? Hold home triamterene, hydrochlorothiazide given diuresis above. Full code DVT prophylaxis: Home Xarelto.
[2024-11-11 18:33] LABS: Influenza A, PCR Detected (NotDetected)
--- NOTE | 2024-11-11 18:34 | INFXCTL.NOTE ---
Bladder scan 400 of urine. Got the patient up to the [facility] and had 150 ml out, . aware.
[2024-11-11 18:35] LABS: Troponin I 0.06 ng/ml (0.00-0.034)
[2024-11-11 20:20] LABS: HIV Combo NEGATIVE (Negative)
[2024-11-11] MEDS: AZITHROMYCIN 500 MG in 0.9 % SODIUM CHLORIDE 250 ML 250 MG IV (20:31)
[2024-11-11] MEDS: SODIUM CHLORIDE 0.9% 10ML FLUSH SYRINGE 10 ML IV (20:35)
[2024-11-11] MEDS: OSELTAMIVIR 75MG CAPSULE 75 MG PO (22:32)
[2024-11-12] VITALS: BP 105/57; PULSE 70; RESP 16; TEMP 36.6; O2SAT 99
[2024-11-12 04:00] VITALS: BP 106/59; PULSE 67; RESP 16; TEMP 36.5; O2SAT 97; BMI 25.0
--- NOTE | 2024-11-12 05:16 | PC.NURSE ---
Pt. is alert and orientated x 4,. Pt. had uneventful night. Pt. slept much of the night. up to bedside commode a couple of times to void. Pt. awaken around 0445 with c/o back pain. Pt. has mid to low back pain down the spine. Pt. back curved down and spine sticks out. Pt. assisted into a more comfortable position. Pt. stated that if the pain was worse she would let me know. Pt. given a drink as requested. VSS. Personal items and ron ennis in reach.
[2024-11-12 07:45] LABS: Basophils % 0.4 % (0.1-2.0); Hematocrit 45.1 % (37.0-47.0); Hemoglobin 15.3 g/dL (12.2-16.2); Lymphocytes # 0.6 K/mm3 (0.7-4.5); Lymphocytes % 24.3 % (10-50); Mean Corpuscular HGB Conc 33.9 g/dL (31.8-35.4); Mean Corpuscular Hemoglobin 31.9 pg (27.0-31.2); Mean Corpuscular Volume 94.2 fl (81-99); Mean Platelet Volume 10.6 fl (7.4-10.4); Monocytes # 0.2 K/mm3 (0.1-1.0); Monocytes % 7.9 % (1.7-9.3); Neutrophils # 1.6 K/mm3 (1.8-7.8); Neutrophils % 66.6 % (37.0-80.0); Platelet Count 105 K/mm3 (142-424); Red Blood Count 4.79 M/mm3 (4.20-5.40); Red Cell Distribution Width 12.6 % (11.5-17.5); White Blood Count 2.4 K/mm3 (4.8-10.8)
[2024-11-12 07:54] VITALS: BP 109/67; PULSE 80; RESP 20; TEMP 36.4; O2SAT 100
[2024-11-12 08:49] LABS: Alanine Aminotransferase 19 U/L (12-78); Albumin Level 3.3 g/dl (3.5-5.0); Albumin/Globulin Ratio 1.3 (1.1-1.8); Alkaline Phosphatase 34 U/L (38-126); Aspartate Amino Transferase 40 U/L (14-36); Bilirubin,Total 0.7 mg/dl (0.2-1.3); Blood Urea Nitrogen 30 mg/dl (7-17); Calcium 7.8 mg/dl (8.4-10.2); Carbon Dioxide 34 mmol/L (22.0-30.0); Chloride 89 mmol/L (98-107); Creatinine Clearance Estimated 37 mL/min (50-200); Estimated Glomerular Filt Rate 43 ml/min (>60); GFR (African American) 52 ML/MIN (>60); Globulin 2.6 g/dL (1.3-3.2); Glucose 143 mg/dl (74-100); Magnesium 1.3 mg/dl (1.6-2.3); Sodium 130 mmol/L (136-145); Total Protein,Serum 5.9 g/dl (6.3-8.2)
[2024-11-12 09:12] LABS: Anion Gap 11.1 mEq/L (5-15); Potassium 4.1 mmoL/L (3.5-5.1)
[2024-11-12] MEDS: OSELTAMIVIR PHOSPHATE 6MG/ML ORAL SUSP 60ML 30 MG PO (10:40)
[2024-11-12] MEDS: FUROSEMIDE 40MG/4ML VIAL 40 MG IV (10:40)
[2024-11-12] MEDS: CEFTRIAXONE 1 GM 1 GM in 0.9 % SODIUM CHLORIDE 50 ML IV (10:41)
--- NOTE | 2024-11-12 13:26 | P.DS_ITS ---
General Admission date:: 11/11/24 HPI HPI HPI: Janice Laird is a 83-year-old female with a medical history significant for HFrEF (LVEF 30% 11/2021), A-fib s/p PPM/AICD on Xarelto, hypertension who presents for worsening shortness of breath. She states she has had flulike symptoms for the past few days and developed shortness of breath which has worsened, including productive cough. No chest pain, abdominal pain, nausea/vomiting/diarrhea. Workup in the ED significant for AGAP 15.1, troponin 0.06-0.07, BNP 12,400, CXR suggesting pulmonary edema, bibasilar opacities. Requiring 2 L or appropriate saturations, new requirement. Case discussed with ED provider and decision was made to admit patient for acute hypoxic respiratory failure secondary to acute HFrEF and suspected community-acquired pneumonia. Hospital Course Hospital Course Hospital Course: Janice Laird is a 83-year-old female with a medical history significant for HFrEF (LVEF 30% 11/2021), A-fib s/p PPM/AICD on Xarelto, hypertension who presents for worsening shortness of breath. She states she has had flulike symptoms for the past few days and developed shortness of breath which has worsened, including productive cough. No chest pain, abdominal pain, nausea/vomiting/diarrhea. Workup in the ED significant for AGAP 15.1, troponin 0.06-0.07, BNP 12,400, CXR suggesting pulmonary edema, bibasilar opacities. Requiring 2 L or appropriate saturations, new requirement. Case discussed with ED provider and decision was made to admit patient for acute hypoxic respiratory failure secondary to acute HFrEF and suspected community-acquired pneumonia. #Acute hypoxic respiratory failure #Influenza A ? Likely secondary to HFrEF exacerbation and community-acquired pneumonia. ? Positive for influenza A. Discharged with Tamiflu. - Saturating 88% on room air at rest. Saturating appropriate on 2 L. #Acute HFrEF exacerbation ? ECHO November 2021 revealed LVEF 30%, no records since then. ? BNP 12,400, CXR suggesting pulmonary edema. ? Clinically improved with IV Lasix diuresis. Weaned to 40 mg daily for the next 3 days. Takes Lasix 20 mg at home. Patient already takes other diuretics including triamterene, hydrochlorothiazide. ? Will follow-up with cardiology within 1 week. #Suspected community-acquired pneumonia ? Bibasilar opacities on CXR. ? Discharged with Levaquin for 4 more days, renally dosed. #A-fib s/p PPM/AICD on Xarelto ? Currently rate controlled. ? Resume home Xarelto. #Hypertension ?Resume home triamterene, hydrochlorothiazide. Exam Data for Last 24 hours Vital signs and Labs for Last 24 Hours: Temp Pulse Resp BP Pulse Ox O2 Del Method O2 Flow Rate 97.6 F 80 20 109/67 L 100 Nasal Cannula 2 11/12/24 07:54 11/12/24 07:54 11/12/24 07:54 11/12/24 07:54 11/12/24 07:54 11/12/24 13:00 11/12/24 13:00 Laboratory Results - last 24 hr 11/11/24 12:40: Troponin I 0.06 H, NT-Pro-B Natriuret Pep 64457 H, Lipase 264 11/11/24 15:30: Lactate 1.2, Troponin I 0.07 H 11/11/24 15:32: SARS-CoV-2 (PCR) Not detected, Influenza Type A (PCR) Detected A , Influenza Type B (PCR) Not detected, RSV (PCR) Not detected, Rhinovirus (PCR) Not detected 11/11/24 18:00: Troponin I 0.06 H, HIV Ag/Ab Combo Qual Negative 11/12/24 07:40: WBC 2.4 L D, RBC 4.79, Hgb 15.3, Hct 45.1, MCV 94.2, MCH 31.9 H, MCHC 33.9, RDW 12.6, Plt Count 105 L, MPV 10.6 H, Neut % (Auto) 66.6, Lymph % (Auto) 24.3, [place] % (Auto) 7.9, Eos % (Auto) 0.0 L, Baso % (Auto) 0.4, Neut # (Auto) 1.6 L, Lymph # (Auto) 0.6 L, [place] # (Auto) 0.2, Eos # (Auto) 0.0, Baso # (Auto) 0.0, Sodium 130 L, Potassium 4.1, Chloride 89 L, Carbon Dioxide 34 H, Anion Gap 11.1, BUN 30 H, Creatinine 1.20 H, Estimated Creat Clear 37, Estimated GFR 43 L, Est GFR ( Amer) 52 L, Glucose 143 H D, Calcium 7.8 L, Magnesium 1.3 L, Total Bilirubin 0.7, AST 40 H D, ALT 19, Alkaline Phosphatase 34 L, Total Protein 5.9 L, Albumin 3.3 L D, Globulin 2.6, Albumin/Globulin Ratio 1.3 I & O for Last 24 hours: Intake & Output 11/09/24 11/10/24 11/11/24 11/12/24 23:59 23:59 23:59 23:59 Intake Total 160 / 160 490 / 490 Output Total 750 / 750 725 / 725 Balance -590 / -590 -235 / -235 Weight 62.823 kg 64.138 kg Constitutional Constitutional: no acute distress *Routine HEENT Exam Head: Present normocephalic Eye: Present EOMI and PERRL ENT: Present mucous membranes moist *Routine Neck Exam Neck: Present supple; Absent lymphadenopathy *Routine Respiratory Exam Respiratory: Present CTA bilaterally *Routine Cardiovascular Exam Cardiovascular: Present RRR *Routine Abdominal Exam Abdominal: Present soft and normoactive bowel sounds; Absent tenderness *Routine Extremities Exam Extremities: Absent cyanosis, clubbing or edema *Routine Skin Exam Skin: Present warm; Absent rash *Routine Neurological Exam Neurological: Present alert and oriented X3 Results Data Completed and Pending Labs on day of discharge: Labs from last 24 hours 11/12/24 11/11/24 11/11/24 07:40 18:00 15:32 WBC 2.4 L D RBC 4.79 Hgb 15.3 Hct 45.1 MCV 94.2 MCH 31.9 H MCHC 33.9 RDW 12.6 Plt Count 105 L MPV 10.6 H Neut % (Auto) 66.6 Lymph % (Auto) 24.3 [place] % (Auto) 7.9 Eos % (Auto) 0.0 L Baso % (Auto) 0.4 Neut # (Auto) 1.6 L Lymph # (Auto) 0.6 L [place] # (Auto) 0.2 Eos # (Auto) 0.0 Baso # (Auto) 0.0 Sodium 130 L Potassium 4.1 Chloride 89 L Carbon Dioxide 34 H Anion Gap 11.1 BUN 30 H Creatinine 1.20 H Estimated Creat Clear 37 Estimated GFR 43 L Est GFR ( Amer) 52 L Glucose 143 H D Lactate Calcium 7.8 L Magnesium 1.3 L Total Bilirubin 0.7 AST 40 H D ALT 19 Alkaline Phosphatase 34 L Troponin I 0.06 H NT-Pro-B Natriuret Pep Total Protein 5.9 L Albumin 3.3 L D Globulin 2.6 Albumin/Globulin Ratio 1.3 Lipase SARS-CoV-2 (PCR) Not detected HIV Ag/Ab Combo Qual Negative Influenza Type A (PCR) Detected A Influenza Type B (PCR) Not detected RSV (PCR) Not detected Rhinovirus (PCR) Not detected 11/11/24 11/11/24 15:30 12:40 WBC RBC Hgb Hct MCV MCH MCHC RDW Plt Count MPV Neut % (Auto) Lymph % (Auto) [place] % (Auto) Eos % (Auto) Baso % (Auto) Neut # (Auto) Lymph # (Auto) [place] # (Auto) Eos # (Auto) Baso # (Auto) Sodium Potassium Chloride Carbon Dioxide Anion Gap BUN Creatinine Estimated Creat Clear Estimated GFR Est GFR ( Amer) Glucose Lactate 1.2 Calcium Magnesium Total Bilirubin AST ALT Alkaline Phosphatase Troponin I 0.07 H 0.06 H NT-Pro-B Natriuret Pep 68661 H Total Protein Albumin Globulin Albumin/Globulin Ratio Lipase 264 SARS-CoV-2 (PCR) HIV Ag/Ab Combo Qual Influenza Type A (PCR) Influenza Type B (PCR) RSV (PCR) Rhinovirus (PCR) DS: Diagnosis Discharge Diagnosis (1) Acute exacerbation of CHF (congestive heart failure): Status: Acute Code(s): I50.9 - Heart failure, unspecified Qualifiers: Heart failure type: unspecified Qualified Code(s): I50.9 - Heart failure, unspecified Meds Home Medications and Allergies Home Medications ?Medication ?Instructions ?Recorded ?Confirmed ?Type rivaroxaban 15 mg tablet (Xarelto) 15 mg PO QPMWITHMEAL 06/02/24 11/11/24 History aspirin 81 mg tablet,delayed 81 mg PO DAILY 06/28/24 11/11/24 History release rosuvastatin 10 mg tablet 10 mg PO HS 07/28/24 11/11/24 History furosemide 20 mg tablet 20 mg PO DAILY #90 tabs 09/09/24 11/11/24 Rx triamterene 37.5 1 cap PO DAILY #90 caps 09/09/24 11/11/24 Rx mg-hydrochlorothiazide 25 mg capsule prochlorperazine maleate 10 mg 10 mg PO Q6HP PRN nausea and 11/11/24 11/11/24 History tablet (Compazine) vomiting levofloxacin 750 mg tablet 750 mg PO Q48H 4 days #2 tabs 11/12/24 Rx oseltamivir 6 mg/mL oral 30 mg (5 mL) PO BID 4 days #40 mL 11/12/24 Rx suspension (Tamiflu) New Prescriptions to Start Prescriptions: levofloxacin Charles Marinelli oseltamivir [Tamiflu] Charles Marinelli Allergies Allergy/AdvReac Type Severity Reaction Status Date / Time acetaminophen (From Vicodin) Allergy Intermediate Hives Verified 10/03/24 11:14 hydrocodone (From Vicodin) Allergy Intermediate Hives Verified 10/03/24 11:14 metoprolol Allergy Intermediate Hives Verified 10/03/24 11:14 sulfamethoxazole (From Allergy Unknown Unknown Verified 10/03/24 11:14 Bactrim) allergy reaction trimethoprim (From Bactrim) Allergy Unknown Unknown Verified 10/03/24 11:14 allergy reaction atorvastatin (From Lipitor) AdvReac Cramping Verified 10/03/24 11:14 of the Muscles Discharge Plan Disposition Patient Disposition: Home, Self-Care Condition: Fair Follow up Plan Follow up with: Roderick Eddy MD [Primary Care Provider] - 11/16/24 (please call for appointment) Tony Barker MD [Staff Physician] - 11/16/24 Prescriptions/Medication Reconciliation: New oseltamivir [Tamiflu] 6 mg/mL Suspension For Reconstitution 30 mg PO BID 4 Days Qty: 40 0RF levofloxacin 750 mg tablet 750 mg PO Q48H 4 Days Qty: 2 0RF Continued rosuvastatin 10 mg tablet 10 mg PO HS Xarelto 15 mg tablet 15 mg PO QPMWITHMEAL Patient Comments: TAKE ONE TABLET BY MOUTH EVERY DAY IN THE EVENING aspirin 81 mg tablet,delayed release (DR/EC) 81 mg PO DAILY furosemide 20 mg tablet 20 mg PO DAILY Qty: 90 1RF triamterene-hydrochlorothiazid 37.5-25 mg capsule 1 cap PO DAILY Qty: 90 1RF prochlorperazine maleate [Compazine] 10 mg tablet 10 mg PO Q6HP PRN (Reason: nausea and vomiting) Discontinued amoxicillin 500 mg capsule 500 mg PO BID Patient Comments: TAKE ONE CAPSULE BY MOUTH TWICE DAILY -- FINISH ALL MEDICINE -- Problem Reconciliation Problems Reviewed?: Yes Patient Discharge Instructions Patient Instructions: Congestive Heart Failure (Alternative Therapy), Heart Failure Print Language: French Providers Primary Care Provider: Roderick Eddy Admit Provider: Charles Marinelli Attending Provider: Charles Marinelli
[2024-11-13 08:08] LABS: HCV Ab Non Reactive (Non Reactive)
--- NOTE | 2024-11-14 15:14 | CARE MANAGER ---
Contacted patient related to hospital discharge. She states she is doing well. She is taking her new medications and has an appointment with her radiation control technician and Dr. Eddy scheduled. Denies any questions or concerns at this time. OSEI Rene
== END 2024-11-12 14:44 | disposition home or self-care (01) ==
LOC: ER 14:51 → 2ND 15:45
PROVIDERS: Physician Assistant; Admitting Provider Student in an Organized Health Care Education/Training Program; Emergency Provider Student in an Organized Health Care Education/Training Program; PCP Internal Medicine; Visit Provider Student in an Organized Health Care Education/Training Program
DX: J10.1 Influenza due to other identified influenza virus with other respiratory manifestations (principal); J18.9 Pneumonia, unspecified organism; J96.01 Acute respiratory failure with hypoxia; I50.22 Chronic systolic (congestive) heart failure; I48.91 Unspecified atrial fibrillation; I10 Essential (primary) hypertension; Z95.810 Presence of automatic (implantable) cardiac defibrillator; Z79.82 Long term (current) use of aspirin; Z79.01 Long term (current) use of anticoagulants
CPT/HCPCS: 36415; 71045; 80053; 83605; 83690; 83735; 83880; 84484; 85025; 85610; 85730; 86803; 87389; 87631; 93005; 94761; 99285; G0378; J0456; J0696; J1100; J1940; J2405; J7050; J7120; J7620

== ENCOUNTER 2024-11-24 11:21 | Outpatient (CLI) | payer MEDICARE, SELFPAY ==
--- NOTE | 2024-11-24 11:27 | XR_ITS ---
FINAL REPORT CLINICAL HISTORY: Persisting cough, history of CHF and pneumonia COMPARISON: 11/11/2024 FINDINGS: CHEST: PA and lateral views of the chest were obtained. There is elevation of the right hemidiaphragm again noted, with compressive atelectasis of the right lung base. Thoracic kyphosis is again noted. No evidence of joint effusion is present. No confluent infiltrate is noted. IMPRESSION: Elevated right hemidiaphragm with compressive atelectasis of the right base, without evidence of pneumonia. Reviewed, Interpreted and Dictated by Viri Lee MD Transcribed by Julianna Kaplan Authenticated and [facility]
== END 2024-11-24 23:59 | disposition home or self-care (01) ==
LOC: RAD 11:23
PROVIDERS: PCP Internal Medicine; Visit Provider Internal Medicine
DX: R05.3 Chronic cough (principal); I50.23 Acute on chronic systolic (congestive) heart failure; J18.9 Pneumonia, unspecified organism
CPT/HCPCS: 71046

== ENCOUNTER 2025-01-30 11:20 | Outpatient (CLI) | payer MEDICARE, OTHER, SELFPAY ==
[2025-01-30 17:20] LABS: Basophils # 0.1 K/mm3 (0-0.2); Basophils % 0.5 % (0.1-2.0); Eosinophils # 0.1 K/mm3 (0.0-0.4); Eosinophils % 1.4 % (0.1-12.0); Hematocrit 42.7 % (37.0-47.0); Hemoglobin 13.9 g/dL (12.2-16.2); Lymphocytes # 0.9 K/mm3 (0.7-4.5); Mean Corpuscular HGB Conc 32.6 g/dL (31.8-35.4); Mean Corpuscular Hemoglobin 31.7 pg (27.0-31.2); Mean Corpuscular Volume 97.5 fl (81-99); Monocytes # 0.7 K/mm3 (0.1-1.0); Monocytes % 7.6 % (1.7-9.3); Neutrophils # 7.5 K/mm3 (1.8-7.8); Neutrophils % 80.3 % (37.0-80.0); Platelet Count 234 K/mm3 (142-424); Red Blood Count 4.38 M/mm3 (4.20-5.40); Red Cell Distribution Width 12.7 % (11.5-17.5); White Blood Count 9.3 K/mm3 (4.8-10.8)
[2025-01-30 18:28] LABS: Albumin Level 4.2 g/dl (3.5-5.0); Chloride 90 mmol/L (98-107); Sodium 134 mmol/L (136-145)
[2025-01-30 18:29] LABS: Potassium 4.1 mmoL/L (3.5-5.1)
[2025-01-30 18:31] LABS: Alanine Aminotransferase 14 U/L (12-78); Albumin/Globulin Ratio 1.4 (1.1-1.8); Aspartate Amino Transferase 30 U/L (14-36); Blood Urea Nitrogen 21 mg/dl (7-17); Estimated Glomerular Filt Rate 36 ml/min (>60); GFR (African American) 43 ML/MIN (>60); Globulin 2.9 g/dL (1.3-3.2); Total Protein,Serum 7.1 g/dl (6.3-8.2)
[2025-01-30 18:32] LABS: Alkaline Phosphatase 59 U/L (38-126); Bilirubin,Total 1.2 mg/dl (0.2-1.3); Chol/HDL Ratio 3.4 (1-3.5); Cholesterol 174 mg/dl (140-200); Glucose 80 mg/dl (74-100); HDL Cholesterol 51 mg/dl (40-60); Triglycerides 94 mg/dl (30-150); VLDL Cholesterol 19 mg/dL (0-40)
[2025-01-30 18:38] LABS: Anion Gap 13.1 mEq/L (5-15); Carbon Dioxide 35 mmol/L (22.0-30.0)
[2025-01-30 18:43] LABS: Direct LDL Cholesterol 99.62 mg/dL (100-129)
== END 2025-01-30 23:59 | disposition home or self-care (01) ==
LOC: LAB.DROPOF 01-31 13:18
PROVIDERS: PCP Internal Medicine; Visit Provider Internal Medicine
DX: E78.5 Hyperlipidemia, unspecified (principal); I11.0 Hypertensive heart disease with heart failure; I50.22 Chronic systolic (congestive) heart failure; I48.91 Unspecified atrial fibrillation
CPT/HCPCS: 80053; 80061; 85025

== ENCOUNTER 2025-07-27 10:05 | Outpatient (CLI) | payer MEDICARE, OTHER, SELFPAY ==
[2025-07-27 14:19] LABS: Hematocrit 43.0 % (37.0-47.0); Hemoglobin 14.0 g/dL (12.2-16.2); Immature Granulocytes % 0.2 %; Mean Corpuscular HGB Conc 32.6 g/dL (31.8-35.4); Mean Corpuscular Hemoglobin 31.3 pg (27.0-31.2); Mean Corpuscular Volume 96.2 fl (81-99); Nucleated Red Blood Cells % 0 %; Platelet Count 199 K/mm3 (142-424); Red Blood Count 4.47 M/mm3 (4.20-5.40); Red Cell Distribution Width-SD 46.8 fL; White Blood Count 8.3 K/mm3 (4.8-10.8)
[2025-07-27 14:47] LABS: Alanine Aminotransferase 12 U/L (12-78); Albumin Level 4.2 g/dl (3.5-5.0); Albumin/Globulin Ratio 1.4 (1.1-1.8); Alkaline Phosphatase 47 U/L (38-126); Anion Gap 12.9 mEq/L (5-15); Aspartate Amino Transferase 30 U/L (14-36); Bilirubin,Total 1.2 mg/dl (0.2-1.3); Blood Urea Nitrogen 20 mg/dl (7-17); Calcium 9.0 mg/dl (8.4-10.2); Carbon Dioxide 34 mmol/L (22.0-30.0); Chloride 91 mmol/L (98-107); Cholesterol 156 mg/dl (140-200); Creatinine,Serum 1.20 mg/dl (0.52-1.04); Estimated Glomerular Filt Rate 43 ml/min (>60); GFR (African American) 52 ML/MIN (>60); Globulin 3.0 g/dL (1.3-3.2); Glucose 82 mg/dl (74-100); HDL Cholesterol 46 mg/dl (40-60); Potassium 3.9 mmoL/L (3.5-5.1); Sodium 134 mmol/L (136-145); Total Protein,Serum 7.2 g/dl (6.3-8.2); Triglycerides 96 mg/dl (30-150)
--- OUTSIDE RECORDS SUMMARY | 2025-07-31 09:43 | XMS_ITS | Referral Summary ---
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
--- OUTSIDE RECORDS SUMMARY | 2025-07-31 09:43 | XMS_ITS | Clinical Summary ---
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
--- OUTSIDE RECORDS SUMMARY | 2025-07-31 09:43 | XMS_ITS | Clinical Summary ---
Author Organization [facility] Address [address] [place] [address] Care Team Providers Care Rougher For Cement Name Role Phone Roderick Eddy MD Primary Care Provider [phone] Allergies Active Allergy Reactions Criticality Noted Date Comments Beta Adrenergic Blockers Hives 06/23/2024 Medications rivaroxaban (XARELTO) 15 MG tablet Take 1 tablet by mouth Daily. Active gabapentin (NEURONTIN) 300 MG capsule Take 1 capsule by mouth 4 (Four) Times a Day. Active furosemide (LASIX) 20 MG tablet Take 1 tablet by mouth Daily. Active traMADol (ULTRAM) 50 MG tablet Take 1 tablet by mouth Every 6 (Six) Hours As Needed for Moderate Pain. Active triamterene-hyd rochlorothiazid e (DYAZIDE) 37.5-25 MG per capsule Take 1 capsule by mouth Every Morning. Active aspirin 81 MG chewable tablet Chew 1 tablet Daily. 4 Active erythromycin (ROMYCIN) 5 MG/GM ophthalmic ointment apply TO BOTH upper eyelids FOUR TIMES DAILY NEEDED 4 Active rosuvastatin (Crestor) 10 MG tablet Take 1 tablet by mouth Every Night. 90 tablet 3 4 Active Additional Information Patient not taking.Reported on 12/08/2024 Coenzyme Q10 (CoQ10) 100 MG capsule 1 capsule DAILY (route: oral) 4 Active Active Problems Problem Noted Date Diagnosed Date Personal history of TIA (transient ischemic jewel ck) 08/10/2024 Atrial fibrillation 08/10/2024 Hyperlipidemia LDL goal <70 08/10/2024 Stroke 06/23/2024 Immunizations Immunization Administration Dates Next Due COVID-19 (MODERNA) 1st,2nd,3rd Dose Monovalent 0 01/16/2021,12/19/2020 Family History Medical History Relation Name Comments Parkinsonism Maternal Grandmother Grady Paredes This wa s in 1955 Relation Name Status Comments Maternal Grandmother Grady Paredes Social History Tobacco Use Types Packs/Day Years Used Date Smoking Tobacco: Never Passive Smoke Exposure: Never Smokeless Tobacco: Never Tobacco Cessation:Counseling Given: No Comments:None Alcohol Use Standard Drinks/Week Comments Never 0 (1 standard drink = 0.6 oz pur e alcohol) AUDIT-C Answer Date Recorded Q1: How often do you have a drink containing alcohol? Never 06/23/2024 Q2: How many drinks containi ng alcohol do you have on a typical day when you are drinking? Patient does not drink Q3: How often do you have si x or more drinks on one occasion? Never 06/23/2024 Abuse Screen Answer Date Recorded Feels Unsafe at Home or Work/School no 06/23/2024 Feels Threatened by Someone no 06/09 Does Anyone Try to Keep You From Having Contact with Others or Doing Things Outside Your Home? no 06/23/2024 Physical Signs of Abuse Present no 06/23/2024 Housing Stability Answer Date Recorded Current Living Arrangements home 06/09 Potentially Unsafe Housing Conditions Not on fermín e 06/23/2024 Disabilities Answer Date Recorded Difficulty Concentrating, Remembering or Making Decisions no 06/23/2024 Difficulty Managing Errands Independently no 06/23/2024 PHQ-2 Answer Date Recorded Patient Health Questionnaire-2 Score 0 12/08/2024 Comments No Sex and Gender Information Value Date Recorded Sex Assigned at Female 06/30/2024 9:24 AM EDT Legal Sex Female 12:44 PM EDT Gender Identity Female 06/30/2024 9:24 AM EDT Sexual Orientation Not on file Last Filed Vital Signs Vital Sign Reading Time Taken Comments Blood Pressure 126/64 12/08/2024 9:36 AM EST Pulse 88 12/08/2024 9:36 AM EST Temperature 36.3 C (97.4 F) 12/08/2024 9:36 AM EST Respiratory Rate 16 07/26/2024 11:18 AM EDT Oxygen Saturation 98% 12/08/2024 9:36 AM EST Inhaled Oxygen Concentration - - Weight 67.1 kg (148 lb) 12/08/2024 9:36 AM EST Height 157.5 cm (5' 2.01 ) 12/08/2024 9:36 AM ES T Body Mass Index 27.06 12/08/2024 9:36 AM EST Plan of Treatment Health Maintenance Due Date Last Done Comments DXA SCAN 1941 DIABETIC EYE EXAM 1951 DIABETIC FOOT EXAM 1951 URINE MICROALBUMIN-CREATININE RATIO (uACR) 1951 Pneumococcal Vaccine 50+ (1 of 2 - PCV) 1960 TDAP/TD VACCINES (1 - Tdap) 1960 ZOSTER VACCINE (1 of 2) 1991 RSV Vaccine - Adults (1 - 1- dose 75+ series) 2016 ANNUAL WELLNESS VISIT 07/26/2024 HEMOGLOBIN A1C 12/25/2024 06/24/2024 INFLUENZA VACCINE 06/09/2025 LIPID PANEL 06/24/2025 06/24/2024 COVID-19 Vaccine ( - season) 07/10/202508/2021, 12/19/2020 Procedures Procedure Name Priority Date/Time Associated Diagnosis Comments HEMOGLOBIN A1C Urgent 06/24/2024 8:04 AM EDT LIPID PANEL Urgent 06/24/2024 8:04 AM EDT from Last 3 Months or Most Recently Relevant to Health Maintenance Results * Hemoglobin A1c (06/24/2024 8:04 AM EDT) Hemoglobin A1C 5.40 4.80 - 5.60 % 06/24/2024 9:50 AM EDT [facility] Blood Venipuncture / Unknown 06/24/2024 8:04 AM EDT 06/24/2024 8:29 AM EDT Narrative [facility] - 06/24/2024 9:50 AM EDT Hemoglobin A1C Ranges: Increased Risk for Diabetes 5.7% to 6.4% Diabetes >= 6.5% Diabetic Goal < 7.0% us Jazmin Ruiz RN CARDIOVASCULAR ICU LAB BLOOD ORDERABLE S Final Result [facility]
[address] [place] [address], * Lipid Panel (06/24/2024 8:04 AM EDT) Total Cholesterol 149 0 - 200 mg/dL 06/24/2024 8:54 AM EDT [facility] Triglycerides 89 0 - 150 mg/dL 06/24/2024 8:54 AM EDT [facility] HDL Cholesterol 50 40 - 60 mg/dL 06/24/2024 8:54 AM EDT [facility] LDL Cholesterol 82 0 - 100 mg/dL 06/24/2024 8:54 AM EDT [facility] VLDL Cholesterol 17 5 - 40 mg/dL 06/24/2024 8:54 AM EDT [facility] LDL/HDL Ratio 1.62 06/24/2024 8:54 AM EDT [facility] Blood Venipuncture / Unknown 06/24/2024 8:04 AM EDT 06/24/2024 8:30 AM EDT Narrative [facility] - 06/24/2024 8:54 AM EDT Cholesterol Reference Ranges (U.S. Department of Health and Human Services ATP III Classifications) Desirable <200 mg/dL Borderline High 200-239 mg/dL High Risk >240 mg/dL Triglyceride Reference Ranges (U.S. Department of Health and Human Services ATP III Classifications) Normal <150 mg/dL Borderline High 150-199 mg/dL High 200-499 mg/dL Very High >500 mg/dL HDL Reference Ranges (U.S. Department of Health and Human Services ATP III Classifications) Low <40 mg/dl (major risk factor for CHD) High >60 mg/dl ('negative' risk factor for CHD) LDL Reference Ranges (U.S. Department of Health and Human Services ATP III Classifications) Optimal <100 mg/dL Near Optimal 100-129 mg/dL Borderline High 130-159 mg/dL High 160-189 mg/dL Very High >189 mg/dL Jazmin Ruiz RN CARDIOVASCULAR ICU LAB BLOOD ORDERABLE S Final Result [facility]
[address] [place] [address], from Last 3 Months or Most Recently Relevant to Health Maintenance Insurance MEDICARE A & B [employer] OPTIONS Advance Directives * CPR (Attempt to Resuscitate) (Latest Code Status on File) Date Activated Date Inactivated Comments 06/23/2024 1:24 PM 06/25/2024 5:47 PM Question Answer Comments Code Status (Patient has no pulse and is not breathing): CPR (Attempt to Resuscitate) Medical Interventions (Patie nt has pulse or is breathing): Full Support Level Of Support Discussed With: Patient Care Teams R[employer]her [employer] Relationship Specialty Start Date End Date Roderick Eddy MD [address] [facility] [address] [place] [id number] PCP - General Internal Medicine 07/26/24
== END 2025-07-27 23:59 ==
LOC: LAB.DROPOF 07-31 09:20
PROVIDERS: PCP Internal Medicine; Visit Provider Internal Medicine
DX: E78.5 Hyperlipidemia, unspecified (principal); I11.0 Hypertensive heart disease with heart failure; I50.22 Chronic systolic (congestive) heart failure; I48.91 Unspecified atrial fibrillation
CPT/HCPCS: 80053; 80061; 85025